=== PATIENT | female | born 1965 | race Caucasian/White ===

== ENCOUNTER → 2016-08-13 | Outpatient (CLI) | payer OTHER ==
--- NOTE | 2016-08-13 17:21 | WOMENS IMAGING REPORT ---
EXAM DESCRIPTION: BILAT SCREENING MAMMO W/CAD COMPLETED DATE/TIME: 08/13/2016 1:57 pm REASON FOR STUDY: BILAT SCREENING MAMMO Z12.31 ENCNTR SCREEN MAMMOGRAM FOR MALIGNANT NEOPLASM OF BR E COMPARISON: None. TECHNIQUE: Standard craniocaudal and mediolateral oblique views of each breast recorded using digita l acquisition. LIMITATIONS: None. FINDINGS: RIGHT BREAST MASSES: On the right breast MLO view, 5 cm of superior to the nipple, a nodule versus superimposed sh adows is present. Further evaluation of this area with a right breast 90 mediolateral view, cone co mpression of the upper half right breast MLO view, cone compression deep central right breast CC view , 90 mediolateral tomosynthesis and CC tomosynthesis are recommended. If this finding persists, the n ultrasound would be required for followup CALCIFICATIONS: No new or suspicious calcifications. ARCHITECTURAL DISTORTION: None. DEVELOPING DENSITY: None. ASYMMETRY: None noted. OTHER: No other significant findings. LEFT BREAST MASSES: No suspicious masses. CALCIFICATIONS: No new or suspicious calcifications. ARCHITECTURAL DISTORTION: None. DEVELOPING DENSITY: None. ASYMMETRY: None noted. OTHER: No other significant findings. Read with the assistance of CAD. .[facility] - R2 Cenova Version 1.3 .[facility] Imaging - R2 Cenova Version 1.3 .[facility] - R2 Cenova Version 2.4 .[facility] [place] - R2 Cenova Version 2.4 .[facility] - R2 Labor Contract Analyst Version 9.2 BREAST DENSITY: b. There are scattered areas of fibroglandular density. BIRAD: 0 Incomplete: Additional Imaging Evaluation and/or prior Mammograms for Comparison. RECOMMENDATION: RECOMMENDED FOLLOW-UP: Additional mammographic views and possible ultrasound right b reast The patient will be contacted for additional imaging. COMMENT: The [employer] (ACR) has developed recommendations for screening MRI of the breasts in certain patient populations, to be used in conjunction with mammography. Breast MRI s urveillance may be appropriate for women with more than 20% lifetime risk of developing breast cancer as determined by genetic testing, significant family history of the disease, or history of mantle r adiation for Hodgkins Disease. ACR Practice Guidelines 2008. TECHNICAL DOCUMENTATION: FINDING NUMBER: (1) ASSESSMENT: (1) JOB ID: [id number] [employer]- All Rights Reserved
== END ==
LOC: WI 13:40
DX: Z12.31 Encounter for screening mammogram for malignant neoplasm of breast (principal)
CPT/HCPCS: 77067; G0202

== ENCOUNTER → 2016-08-13 | Outpatient (CLI) | payer OTHER | LOC: CCC 14:23 | DX: Z12.4 Encounter for screening for malignant neoplasm of cervix (principal) | CPT/HCPCS: 88142 ==

== ENCOUNTER → 2016-08-28 | Outpatient (CLI) | payer OTHER ==
[2016-08-28 09:09] LABS: ABSOLUTE EOSINOPHILS # (AUTO) 0.2 10^3/uL (0.0-0.6); ABSOLUTE LYMPHOCYTES (AUTO) 1.4 10^3/uL (0.5-4.7); ABSOLUTE MONOCYTES (AUTO) 0.6 10^3/uL (0.1-1.4); ABSOLUTE NEUT (AUTO) 3.9 10^3/uL (1.7-8.2); BASOPHILS % (AUTO) 0.8 % (0-2); EOSINOPHILS % (AUTO) 3.4 % (0-6); HEMATOCRIT 35.7 % (36.0-47.0); HEMOGLOBIN 11.8 g/dL (12.0-15.5); HGB HCT DIFFERENCE -0.3; LYMPHOCYTES % (AUTO) 23.1 % (13-45); MEAN CORPUSCULAR HEMOGLOBIN 34.1 pg (27.0-33.4); MEAN CORPUSCULAR VOLUME 103 fl (80-97); MONOCYTES % (AUTO) 9.3 % (3-13); RED BLOOD COUNT 3.46 10^6/uL (3.72-5.28); RED CELL DISTRIBUTION WIDTH 15.4 % (11.5-14.0); SEGMENTED NEUTROPHILS % (AUTO) 63.4 % (42-78); WHITE BLOOD COUNT 6.2 10^3/uL (4.0-10.5)
[2016-08-28 09:29] LABS: ALANINE AMINOTRANSFERASE 36 U/L (9-52); ALBUMIN 3.7 g/dL (3.5-5.0); ALKALINE PHOSPHATASE 98 U/L (38-126); ANION GAP 14 (5-19); ASPARTATE AMINO TRANSFERASE 77 U/L (14-36); BILIRUBIN,TOTAL 0.5 mg/dL (0.2-1.3); BLOOD UREA NITROGEN 8 mg/dL (7-20); CALCIUM 9.1 mg/dL (8.4-10.2); CARBON DIOXIDE 23 mmol/L (22-30); CHLORIDE 106 mmol/L (98-107); CHOLESTEROL 222.02 mg/dL (0-200); CREATININE RESULT 0.65 mg/dL (0.52-1.25); Direct HDL 54 mg/dL (>40); GLUCOSE 70 mg/dL (75-110); POTASSIUM 5.5 mmol/L (3.6-5.0); SODIUM 143.1 mmol/L (137-145); TOTAL PROTEIN 8.1 g/dL (6.3-8.2); TRIGLYCERIDES 121 mg/dL (<150)
[2016-08-28 09:42] LABS: DIRECT LDL 136 mg/dL (<100)
[2016-08-29 07:42] LABS: HEPATITIS C VIRUS AB >11.0 s/co ratio (0.0-0.9)
[2016-08-29 11:52] LABS: HEPATITIS A AB TOTAL Positive (Negative)
== END ==
LOC: CCC 07:36
DX: J44.9 Chronic obstructive pulmonary disease, unspecified (principal); R06.00 Dyspnea, unspecified
CPT/HCPCS: 36415; 71020; 80053; 80061; 83036; 84443; 85025; 86317; 86704; 86708; 86709; 86803; 87340

== ENCOUNTER → 2016-09-02 | Outpatient (CLI) | payer OTHER ==
--- NOTE | 2016-09-02 13:34 | WOMENS IMAGING REPORT ---
EXAM DESCRIPTION: 3D DX MAMMO RIGHT UNILAT COMPLETED DATE/TIME: 09/02/2016 10:02 am REASON FOR STUDY: N63 LUMP R92.2 INCONCLUSIVE MAMMOGRAM COMPARISON: Mammograms 08/13/2016 TECHNIQUE: Right breast 90 mediolateral digital mammogram, right breast craniocaudal and mediolater al oblique digital breast tomosynthesis. LIMITATIONS: None. FINDINGS: BREAST: Right MASSES: No suspicious masses. CALCIFICATIONS: No new or suspicious calcifications. ARCHITECTURAL DISTORTION: None. DEVELOPING DENSITY: None. ASYMMETRY: None noted. OTHER: No other significant findings. Read with the assistance of CAD. .[facility] - R2 Cenova Version 1.3 .[facility] Imaging - R2 Cenova Version 1.3 .[facility] Imaging - R2 Cenova Version 2.4 .[facility] [place] R2 Cenova Version 2.4 .[facility] - R2 Records Specialist Version 9.2 BREAST DENSITY: b. There are scattered areas of fibroglandular density. BIRAD: 1 Negative. RECOMMENDATION: RECOMMENDED FOLLOW UP: Please continue bilateral screening mammography in August 22 SPECIFIC INTERVENTION/IMAGING/CONSULTATION RECOMMENDED:No additional intervention/ imaging/consultati on needed at this time. COMMUNICATION:The negative/benign results were communicated to the patient. COMMENT: PATIENT NOTIFIED BY LETTER. The [employer] (ACR) has developed recommendations for screening MRI of the breast s in certain patient populations, to be used in conjunction with mammography. Breast MRI surveillanc e may be appropriate for women with more than 20% lifetime risk of developing breast cancer as deter mined by genetic testing, significant family history of the disease, or history of mantle radiation f or Hodgkins Disease. ACR Practice Guidelines 2008. DBT Technology DBT is a type of tomographic mammography. With conventional mammography, overlapping breast tissue ma y make lesions difficult to detect, even with good compression. DBT uses an x-ray tube that rotates a round the breast, taking images at different angles. These images are then combined to create thin sl ices of the breast that the radiologist can view as a 3D reconstruction. The Ab[employer] unit can perform full-field digital mammograms (2D imaging); or DBT (3D imaging); or both, in a combination mode that quickly performs both the mammogram and the tomosynthesis scan while the breast is still compressed. PQRS 6045F: Fluoroscopic imaging is not utilized for breast tomosynthesis. TECHNICAL DOCUMENTATION: FINDING NUMBER: (1) ASSESSMENT: (1) JOB ID: [id number] [employer]- All Rights Reserved
== END ==
LOC: WI 09:45
DX: N63 Unspecified lump in breast (principal)
CPT/HCPCS: 77061; G0204

== ENCOUNTER → 2016-09-04 | Outpatient (CLI) | payer OTHER ==
[2016-09-04 11:26] LABS: ANION GAP 14 (5-19); BLOOD UREA NITROGEN 7 mg/dL (7-20); CARBON DIOXIDE 23 mmol/L (22-30); CHLORIDE 101 mmol/L (98-107); CREATININE RESULT 0.57 mg/dL (0.52-1.25); GLUCOSE 75 mg/dL (75-110); SODIUM 138.4 mmol/L (137-145)
[2016-09-04 12:40] LABS: FOLATE > 20.00 ng/mL (>2.76)
[2016-09-07 21:06] LABS: HEPATITIS C GENOTYPE 3 1a (.)
== END ==
LOC: OD 09:52
DX: J44.9 Chronic obstructive pulmonary disease, unspecified (principal); D50.9 Iron deficiency anemia, unspecified
CPT/HCPCS: 36415; 80048; 81270; 82607; 82746

== ENCOUNTER 2016-09-26 13:41 | Emergency (ER) | payer OTHER ==
--- NOTE | 2016-09-26 13:50 | ER Document Report ---
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 Patient reports she feels shaky. Patient states symptoms started several months ago and have worsened over the last few days. Patient states she has been dropping items at home. hx: Hepatitis C, asthma, COPD I have greeted and performed a rapid initial assessment of this patient. A comprehensive ED assessment and evaluation of the patient, analysis of test results and completion of the medical decision making process will be conducted by additional ED providers. TRAVEL OUTSIDE OF THE [place] IN LAST 30 DAYS: No - Related Data Allergies/Adverse Reactions: No Known Allergies Allergy (Verified 09/26/16 13:47) Past Medical History Pulmonary Medical History: Reports: Hx Asthma, Hx Bronchitis, Hx Pneumonia Denies: Hx Tuberculosis Neurological Medical History: Denies: Hx Seizures Psychiatric Medical History: Reports: Hx Bipolar Disorder, Hx Depression, Hx Post Traumatic Stress Disorder Past Surgical History: Reports: Hx Tubal Ligation. Denies: Hx Appendectomy, Hx Bowel Surgery, Hx Section, Hx Cholecystectomy, Hx Coronary Artery Bypass Graft, Hx Gastric Bypass Surgery, Hx Herniorrhaphy, Hx Hysterectomy, Hx Mastectomy, Hx Pacemaker, Hx Tonsillectomy - Immunizations Hx Diphtheria, Pertussis, Tetanus Vaccination: Yes Physical Exam - Vital signs Vitals: Temp Pulse Resp BP Pulse Ox 99.1 F 101 H 19 127/98 H 96 09/26/16 13:46 09/26/16 13:46 09/26/16 13:46 09/26/16 13:46 09/26/16 13:46 - Neurological Silke Coma Scale Eye Opening: Spontaneous Silke Coma Scale Verbal: Oriented [place] Coma Scale Motor: Obeys Commands [place] Coma Scale Total: 15 Course - Vital Signs Vital signs: Temp Pulse Resp BP Pulse Ox 99.1 F 101 H 19 127/98 H 96 09/26/16 13:46 09/26/16 13:46 09/26/16 13:46 09/26/16 13:46 09/26/16 13:46
[2016-09-26 14:24] LABS: ABSOLUTE BASOPHILS # (AUTO) 0.1 10^3/uL (0.0-0.2); ABSOLUTE EOSINOPHILS # (AUTO) 0.2 10^3/uL (0.0-0.6); ABSOLUTE LYMPHOCYTES (AUTO) 1.5 10^3/uL (0.5-4.7); ABSOLUTE MONOCYTES (AUTO) 0.6 10^3/uL (0.1-1.4); ABSOLUTE NEUT (AUTO) 3.1 10^3/uL (1.7-8.2); BASOPHILS % (AUTO) 1.1 % (0-2); EOSINOPHILS % (AUTO) 2.9 % (0-6); HEMATOCRIT 33.2 % (36.0-47.0); HEMOGLOBIN 11.1 g/dL (12.0-15.5); HGB HCT DIFFERENCE 0.1; LYMPHOCYTES % (AUTO) 27.3 % (13-45); MEAN CORPUSCULAR HEMOGLOBIN 35.2 pg (27.0-33.4); MEAN CORPUSCULAR HGB CONC 33.3 g/dL (32.0-36.0); MEAN CORPUSCULAR VOLUME 106 fl (80-97); MONOCYTES % (AUTO) 11.7 % (3-13); RED BLOOD COUNT 3.15 10^6/uL (3.72-5.28); RED CELL DISTRIBUTION WIDTH 14.2 % (11.5-14.0); WHITE BLOOD COUNT 5.5 10^3/uL (4.0-10.5)
[2016-09-26 14:41] LABS: ALANINE AMINOTRANSFERASE 33 U/L (9-52); ALBUMIN 3.5 g/dL (3.5-5.0); ALCOHOL 141 mg/dL (NONE DETECTED); ALKALINE PHOSPHATASE 91 U/L (38-126); ANION GAP 15 (5-19); APPEARANCE,URINE SLIGHTLY-CLOUDY; ASPARTATE AMINO TRANSFERASE 74 U/L (14-36); BILIRUBIN,TOTAL 0.3 mg/dL (0.2-1.3); BILIRUBIN,URINE NEGATIVE (NEGATIVE); BLOOD UREA NITROGEN 10 mg/dL (7-20); CALCIUM 8.4 mg/dL (8.4-10.2); CARBON DIOXIDE 21 mmol/L (22-30); CHLORIDE 105 mmol/L (98-107); CREATININE RESULT 0.73 mg/dL (0.52-1.25); GLUCOSE 84 mg/dL (75-110); GLUCOSE, URINE NEGATIVE (NEGATIVE); MAGNESIUM 2.2 mg/dL (1.6-2.3); POTASSIUM 4.1 mmol/L (3.6-5.0); SODIUM 141.3 mmol/L (137-145); TOTAL PROTEIN 7.3 g/dL (6.3-8.2)
[2016-09-26 14:42] LABS: BACTERIA,URINE TRACE /HPF; KETONES,URINE NEGATIVE (NEGATIVE); LEUKOCYTE ESTERASE,URINE LARGE (NEGATIVE); NITRITE,URINE NEGATIVE (NEGATIVE); PROTEIN,URINE 30 mg/dL (NEGATIVE); RBC,URINE 0-1 /HPF; URINE SPECIFIC GRAVITY 1.021; UROBILINOGEN,URINE NEGATIVE mg/dL (<2.0)
[2016-09-26 14:49] LABS: URINE BARBITURATES SCREEN NEGATIVE; URINE METHADONE SCREEN NEGATIVE; URINE OPIATES LOW NEGATIVE; URINE PHENCYCLIDINE SCREEN NEGATIVE
--- NOTE | 2016-09-26 15:35 | ER Document Report ---
ED General - General Chief Complaint: Tremor Stated Complaint: SHAKY,LEG AND HAND WEAKNESS Time seen by provider: 15:20 Mode of Arrival: Wheelchair Information source: Patient TRAVEL OUTSIDE OF THE [place] IN LAST 30 DAYS: No - HPI Notes: 50-year-old female history of hepatitis C and chronic alcohol use presents with months of increasing weakness and lack of coordination. 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 She denies any head trauma but has felt weak to the point she has fallen without known injury. Denies any headache. No new medications or changes in her medicines. Denies steroid use. She is concerned she may have Parkinson's disease. No focal neurologic symptoms otherwise. Denies fever or dysuria hematuria chest pain or breathing difficulty except for her chronic shortness of breath - Related Data Allergies/Adverse Reactions: No Known Allergies Allergy (Verified 09/26/16 13:47) Past Medical History - General Information source: Patient - Social History Smoking Status: Current Every Day Smoker Chew tobacco use (# tins/day): No Frequency of alcohol use: Heavy Drug Abuse: None Family History: Reviewed & Not Pertinent Patient has suicidal ideation: No Patient has homicidal ideation: No Pulmonary Medical History: Reports: Hx Asthma, Hx Bronchitis, Hx Pneumonia Denies: Hx Tuberculosis Neurological Medical History: Denies: Hx Seizures Renal/ Medical History: Denies: Hx Peritoneal Dialysis Psychiatric Medical History: Reports: Hx Bipolar Disorder, Hx Depression, Hx Post Traumatic Stress Disorder Past Surgical History: Reports: Hx Tubal Ligation. Denies: Hx Appendectomy, Hx Bowel Surgery, Hx Section, Hx Cholecystectomy, Hx Coronary Artery Bypass Graft, Hx Gastric Bypass Surgery, Hx Herniorrhaphy, Hx Hysterectomy, Hx Mastectomy, Hx Pacemaker, Hx Tonsillectomy - Immunizations Hx Diphtheria, Pertussis, Tetanus Vaccination: Yes Hx Pneumococcal Vaccination: 08/03/10 Review of Systems - Review of Systems -: Yes All other systems reviewed and negative Physical Exam - Vital signs Vitals: Temp Pulse Resp BP Pulse Ox 99.1 F 101 H 19 127/98 H 96 09/26/16 13:46 09/26/16 13:46 09/26/16 13:46 09/26/16 13:46 09/26/16 13:46 - Notes Notes: GENERAL: Chronically ill-appearing, in no acute distress. HEAD: Atraumatic, normocephalic. EYES: Pupils equal round and reactive to light, extraocular movements intact, sclera anicteric, conjunctiva are normal. ENT: nares patent, oropharynx clear without exudates. Moist mucous membranes. NECK: Normal range of motion, supple without lymphadenopathy LUNGS: Breath sounds coarse with mild wheezing HEART: Regular rate and rhythm without murmurs ABDOMEN: Soft, normoactive bowel sounds. No guarding, no rebound. No masses appreciated. EXTREMITIES: Normal range of motion, no pitting or edema. No cyanosis. NEUROLOGICAL: Cranial nerves intact. Normal speech, mild generalized weakness. Slight tremor noted. Normal sensory, motor. PSYCH: Normal mood, normal affect. SKIN: Warm, Dry, normal turgor, Course - Re-evaluation Re-evalutation: 09/26/16 16:26 I discussed findings with the patient and discussed with her alcohol abuse and potential nerve damage. She voices understanding but does not plan on quitting at this point. She does have interest in following up with neurology for further evaluation and treatment. She understands warning signs to return to the emergency department for. - Vital Signs Vital signs: Temp Pulse Resp BP Pulse Ox 99.1 F 101 H 19 127/98 H 96 09/26/16 13:46 09/26/16 13:46 09/26/16 13:46 09/26/16 13:46 09/26/16 13:46 - Laboratory Result Diagrams: 09/26/16 14:05 09/26/16 14:05 Laboratory results interpreted by me: 09/26/16 09/26/16 09/26/16 14:05 14:05 14:05 RBC 3.15 L Hgb 11.1 L Hct 33.2 L MCV 106 H MCH 35.2 H RDW 14.2 H Carbon Dioxide 21 L AST 74 H Ammonia < 8.7 L Urine Protein Ur Leukocyte Esterase 09/26/16 14:05 RBC Hgb Hct MCV MCH RDW Carbon Dioxide AST Ammonia Urine Protein 30 H Ur Leukocyte Esterase LARGE H Discharge - Discharge Clinical Impression: Tremors of nervous system, Alcohol abuse Condition: Fair Disposition: HOME, SELF-CARE Additional Instructions: Consider getting help if you feel he needed help to get off the alcohol. Follow -up with neurology as discussed Referrals: [facility] [Primary Care Provider] - Follow up as needed TIERRA PEREZ MD [EMERITUS] - Follow up as needed MANUEL OVIEDO MD [ACTIVE STAFF] - Follow up as needed
[2016-09-26 19:42] VITALS: BP 122/90
== END 2016-09-26 17:00 | disposition home or self-care (01) ==
LOC: ER 13:41
DX: R25.1 Tremor, unspecified (principal); F10.10 Alcohol abuse, uncomplicated; R27.9 Unspecified lack of coordination; R53.1 Weakness; Z91.81 History of falling; J45.909 Unspecified asthma, uncomplicated; R06.02 Shortness of breath; F17.200 Nicotine dependence, unspecified, uncomplicated
CPT/HCPCS: 36415; 70450; 80053; 80307; 81001; 82140; 83735; 85025; 99284

== ENCOUNTER → 2016-11-06 | Outpatient (CLI) | payer OTHER ==
[2016-11-06 09:37] LABS: BILIRUBIN,TOTAL 0.4 mg/dL (0.2-1.3)
== END ==
LOC: CCC 08:45
DX: K76.9 Liver disease, unspecified (principal)
CPT/HCPCS: 36415; 82140; 82247; 82977; 83735; 84450; 84460

== ENCOUNTER 2017-06-06 10:36 | Inpatient (IN) | payer OTHER ==
[2017-06-06] MEDS ORDERED: ONDANSETRON 4 MG TAB.RAPDIS PO ONE (10:49)
--- NOTE | 2017-06-06 10:50 | ER Document Report ---
ED Medical Screen (RME) - General Chief Complaint: Flu Symptoms Stated Complaint: WEAKNESS Time Seen by Provider: 06/06/17 10:48 Mode of Arrival: Ambulatory Information source: Patient Notes: This is a 51-year-old female with a history of COPD and active smoking who presents to the emergency room with generalized weakness, fever, chills, diffuse muscle aches, productive cough, and shortness of breath. TRAVEL OUTSIDE OF THE [place] IN LAST 30 DAYS: No - Related Data Allergies/Adverse Reactions: No Known Allergies Allergy (Verified 06/06/17 10:43) Home Medications: Current Home Medications No Home Medications 06/06/17 [History] Past Medical History Pulmonary Medical History: Reports: Hx Asthma, Hx Bronchitis, Hx Pneumonia Denies: Hx Tuberculosis Neurological Medical History: Denies: Hx Seizures Renal/ Medical History: Denies: Hx Peritoneal Dialysis Psychiatric Medical History: Reports: Hx Bipolar Disorder, Hx Depression, Hx Post Traumatic Stress Disorder Past Surgical History: Reports: Hx Tubal Ligation. Denies: Hx Appendectomy, Hx Bowel Surgery, Hx Section, Hx Cholecystectomy, Hx Coronary Artery Bypass Graft, Hx Gastric Bypass Surgery, Hx Herniorrhaphy, Hx Hysterectomy, Hx Mastectomy, Hx Pacemaker, Hx Tonsillectomy - Immunizations Hx Diphtheria, Pertussis, Tetanus Vaccination: Yes Physical Exam - Vital signs Vitals: Temp Pulse Resp BP Pulse Ox 100.6 F H 124 H 26 H 124/73 93 06/06/17 10:43 06/06/17 10:43 06/06/17 10:43 06/06/17 10:43 06/06/17 10:43 Course - Vital Signs Vital signs: Temp Pulse Resp BP Pulse Ox 100.6 F H 124 H 26 H 124/73 93 06/06/17 10:43 06/06/17 10:43 06/06/17 10:43 06/06/17 10:43 06/06/17 10:43
[2017-06-06] MEDS: NORMAL SALINE 1000 ML 1,000 ML IV PRN ×3 (11:27→13:51)
[2017-06-06 11:45] LABS: HEMATOCRIT 33.4 % (36.0-47.0); HEMOGLOBIN 11.8 g/dL (12.0-15.5); MEAN CORPUSCULAR HEMOGLOBIN 36.5 pg (27.0-33.4); MEAN CORPUSCULAR HGB CONC 35.3 g/dL (32.0-36.0); MEAN CORPUSCULAR VOLUME 104 fl (80-97); RED BLOOD COUNT 3.23 10^6/uL (3.72-5.28); WHITE BLOOD COUNT 25.1 10^3/uL (4.0-10.5)
--- NOTE | 2017-06-06 11:46 | EKG REPORT ---
SEVERITY:- ABNORMAL ECG - SINUS TACHYCARDIA CONSIDER LEFT VENTRICULAR HYPERTROPHY : Confirmed by: Donaldo Graham 06-Jun-2017 11:45:53
[2017-06-06 11:59] LABS: ALANINE AMINOTRANSFERASE 58 U/L (9-52); ALBUMIN 3.2 g/dL (3.5-5.0); ALKALINE PHOSPHATASE 162 U/L (38-126); ANION GAP 17 (5-19); ASPARTATE AMINO TRANSFERASE 117 U/L (14-36); BILIRUBIN,DIRECT 1.5 mg/dL (0.0-0.4); BLOOD UREA NITROGEN 9 mg/dL (7-20); CALCIUM 8.5 mg/dL (8.4-10.2); CARBON DIOXIDE 26 mmol/L (22-30); CHLORIDE 74 mmol/L (98-107); CREATINE KINASE 33 U/L (30-135); CREATININE RESULT 0.44 mg/dL (0.52-1.25); GLUCOSE 106 mg/dL (75-110); TOTAL PROTEIN 6.9 g/dL (6.3-8.2)
[2017-06-06 12:10] LABS: POTASSIUM 2.9 mmol/L (3.6-5.0); SODIUM 117.4 mmol/L (137-145)
[2017-06-06 12:14] LABS: BAND NEUTROPHILS % (MANUAL) 2 % (3-5); BASOPHILS % (MANUAL) 0 % (0-2); EOSINOPHILS % (MANUAL) 0 % (0-6); LYMPHOCYTES % (MANUAL) 2 % (13-45); TOTAL CELLS COUNTED 100
[2017-06-06 12:16] LABS: HYPOCHROMASIA SLIGHT; TOXIC GRANULATION SLIGHT; TOXIC VACUOLATION PRESENT
[2017-06-06 12:17] LABS: CREATINE KINASE MB 0.93 ng/mL (<4.55); TROPONIN I < 0.012 ng/mL
[2017-06-06] MEDS ORDERED: NORMAL SALINE 1000 ML 1,000 ML IV ONE (12:18)
[2017-06-06] MEDS ORDERED: CEFEPIME 1 GM/D5W RTU 1 GM/50 ML RTUPB IV ONE (12:44)
[2017-06-06] MEDS ORDERED: LEVOFLOXACIN 500 MG/D5W RTU 500 MG/100 ML RTUPB IV ONE (12:44)
[2017-06-06] MEDS ORDERED: POTASSIUM CHLORIDE 20 MEQ/15 ML UDCUP PO ONE (12:45)
--- NOTE | 2017-06-06 13:24 | RADIOLOGY REPORT (SQ) ---
EXAM DESCRIPTION: CHEST PA/LAT COMPLETED DATE/TIME: 06/06/2017 12:42 pm REASON FOR STUDY: cough, sob COMPARISON: CT angio chest 04/10/2016 Chest films 04/13/2016, 04/19/2016 EXAM PARAMETERS: NUMBER OF VIEWS: two views TECHNIQUE: Digital Frontal and Lateral radiographic views of the chest acquired. RADIATION DOSE: NA LIMITATIONS: none FINDINGS: LUNGS AND PLEURA: Persistent cavitary infiltrate in the left upper lobe, more prominent th an on previous chest films from April 2016. Atypical pneumonia/tuberculosis should be considered . Patchy airspace disease left retrocardiac region atelectasis versus pneumonia. Right lung grossly clear. No pleural effusions or pneumothorax MEDIASTINUM AND HILAR STRUCTURES: No masses or contour abnormalities. HEART AND VASCULAR STRUCTURES: Heart normal size. No evidence for failure. BONES: No acute findings. HARDWARE: None in the chest. OTHER: No other significant finding. IMPRESSION: Recurrent cavitary infiltrate in the left upper lobe, worrisome for atypical pneumonia o r tuberculosis TECHNICAL DOCUMENTATION: JOB ID: [id number] [employer]- All Rights Reserved
--- NOTE | 2017-06-06 13:55 | ER Document Report ---
ED General - General Chief Complaint: Flu Symptoms Stated Complaint: WEAKNESS Time Seen by Provider: 06/06/17 10:48 Mode of Arrival: Ambulatory TRAVEL OUTSIDE OF THE [place] IN LAST 30 DAYS: No - HPI Patient complains to provider of: Fever cough feeling well Notes: Patient coming in for feeling unwell for the past 3 days cough productive sputum fevers chills weakness. Patient is a smoker. Patient denies any alcohol or drug abuse. Patient denies any recent travel. Denies any recent antibiotics. Patient states history of pneumonia in the past. Upon my evaluation patient does have a mask on. Patient's initial heart rate was elevated in triage has received a bag of fluids already heart rate has improved however still tachycardic. Patient denies vomiting or diarrhea. - Related Data Allergies/Adverse Reactions: No Known Allergies Allergy (Verified 06/06/17 10:43) Home Medications: Current Home Medications No Home Medications 06/06/17 [History] Past Medical History - General Information source: Patient - Social History Smoking Status: Current Every Day Smoker Chew tobacco use (# tins/day): No Frequency of alcohol use: Occasional Drug Abuse: None Family History: Reviewed & Not Pertinent Patient has suicidal ideation: No Patient has homicidal ideation: No Pulmonary Medical History: Reports: Hx Asthma, Hx Bronchitis, Hx Pneumonia Denies: Hx Tuberculosis Neurological Medical History: Denies: Hx Seizures Renal/ Medical History: Denies: Hx Peritoneal Dialysis Psychiatric Medical History: Reports: Hx Bipolar Disorder, Hx Depression, Hx Post Traumatic Stress Disorder Past Surgical History: Reports: Hx Tubal Ligation. Denies: Hx Appendectomy, Hx Bowel Surgery, Hx Section, Hx Cholecystectomy, Hx Coronary Artery Bypass Graft, Hx Gastric Bypass Surgery, Hx Herniorrhaphy, Hx Hysterectomy, Hx Mastectomy, Hx Pacemaker, Hx Tonsillectomy - Immunizations Hx Diphtheria, Pertussis, Tetanus Vaccination: Yes Hx Pneumococcal Vaccination: 08/03/10 Review of Systems - Review of Systems Constitutional: Fever, Weakness EENT: No symptoms reported Cardiovascular: No symptoms reported Respiratory: Short of breath Gastrointestinal: No symptoms reported Genitourinary: No symptoms reported Female Genitourinary: No symptoms reported Musculoskeletal: No symptoms reported Skin: No symptoms reported Hematologic/Lymphatic: No symptoms reported Neurological/Psychological: No symptoms reported -: Yes All other systems reviewed and negative Physical Exam - Vital signs Vitals: Temp Pulse Resp BP Pulse Ox 100.6 F H 124 H 26 H 124/73 93 06/06/17 10:43 06/06/17 10:43 06/06/17 10:43 06/06/17 10:43 06/06/17 10:43 Interpretation: Tachycardic, Tachypneic, Febrile - General General appearance: Appears well, Alert - HEENT Head: Normocephalic, Atraumatic Eyes: Normal Conjunctiva: Normal Cornea: Normal Extraocular movements intact: Yes Eyelashes: Normal Pupils: PERRL - Respiratory Respiratory status: No respiratory distress Chest status: Nontender Breath sounds: Rhonchi, Wheezing Chest palpation: Normal - Cardiovascular Rhythm: Tachycardia Heart sounds: Normal auscultation Murmur: No - Abdominal Inspection: Normal Distension: No distension Bowel sounds: Normal Tenderness: Nontender Organomegaly: No organomegaly - Back Back: Normal, Nontender - Extremities General upper extremity: Normal inspection, Nontender, Normal color, Normal ROM , Normal temperature General lower extremity: Normal inspection, Nontender, Normal color, Normal ROM , Normal temperature, Normal weight bearing. No: Diane's sign - Neurological Neuro grossly intact: Yes Cognition: Normal Orientation: AAOx4 Silke Coma Scale Eye Opening: Spontaneous [place] Coma Scale Verbal: Oriented [place] Coma Scale Motor: Obeys Commands [place] Coma Scale Total: 15 Speech: Normal Motor strength normal: LUE, RUE, LLE, RLE Sensory: Normal - Psychological Associated symptoms: Normal affect, Normal mood - Skin Skin Temperature: Warm Skin Moisture: Dry Skin Color: Normal Course - Re-evaluation Re-evalutation: 06/06/17 15:02 Patient laboratory studies showed significant leukocytosis with lateral abnormalities. Reviewed chest x-ray does show a cavitary lesion discussed with radiology team states that this is a recurring issue reviewed patient's previous visits show multiple visits for pneumonia presenting with a cavitary lesion concerning for tuberculosis with negative acid-fast testing in the past. Antibiotics were ordered for the patient discussed with the hospitalist staff will admit the patient for further evaluation. - Vital Signs Vital signs: Temp Pulse Resp BP Pulse Ox 100.6 F H 124 H 21 H 104/82 100 06/06/17 10:43 06/06/17 10:43 06/06/17 14:31 06/06/17 14:31 06/06/17 14:31 - Laboratory Result Diagrams: 06/06/17 11:25 06/06/17 11:25 Laboratory results interpreted by me: 06/06/17 06/06/17 11:25 11:25 WBC 25.1 H RBC 3.23 L Hgb 11.8 L Hct 33.4 L MCV 104 H MCH 36.5 H Seg Neuts % (Manual) 81 H Band Neutrophils % 2 L Lymphocytes % (Manual) 2 L Monocytes % (Manual) 15 H Abs Neuts (Manual) 20.8 H Abs Monocytes (Manual) 3.8 H Sodium 117.4 L* Potassium 2.9 L* Chloride 74 L Creatinine 0.44 L Total Bilirubin 2.0 H Direct Bilirubin 1.5 H AST 117 H ALT 58 H Alkaline Phosphatase 162 H Albumin 3.2 L Critical Care Note - Critical Care Note Total time excluding time spent on procedures (mins): 35 Comments: Multiple evaluations for patient with concerning pathology. Discharge - Discharge Clinical Impression: Hypokalemia, Hyponatremia, Pulmonary cavitary lesion, Tobacco abuse COPD (chronic obstructive pulmonary disease) Qualifiers: COPD type: unspecified COPD Qualified Code(s): J44.9 - Chronic obstructive pulmonary disease, unspecified Leukocytosis Qualifiers: Leukocytosis type: unspecified Qualified Code(s): D72.829 - Elevated white blood cell count, unspecified Condition: Good Disposition: ADMITTED INPATIENT Admitting Provider: Craigist - [facility] Admitted: [facility]
[2017-06-06] MEDS ORDERED: ACETAMINOPHEN 325 MG TABLET PO PRN ×2 (15:21→17:58)
[2017-06-06] MEDS ORDERED: VANCOMYCIN HCL 0 MG in DEXTROSE 5%-WATER 250 ML IV NR (15:45)
[2017-06-06] MEDS ORDERED: LORAZEPAM 1 MG TABLET PO PRN (16:06)
[2017-06-06] MEDS ORDERED: POTASSI CL 40 MEQ/NS 1L 1,000 ML IV PRN (16:10)
[2017-06-06] MEDS ORDERED: INFLUENZA ADLT QUAD (36MOS+) 2017-18 VAC 0.5 ML SYR IM PRN (16:29)
[2017-06-06 16:36] LABS: APPEARANCE,URINE CLOUDY; BILIRUBIN,URINE MODERATE (NEGATIVE); GLUCOSE, URINE NEGATIVE (NEGATIVE); KETONES,URINE 20 mg/dL (NEGATIVE); LEUKOCYTE ESTERASE,URINE NEGATIVE (NEGATIVE); NITRITE,URINE NEGATIVE (NEGATIVE); PROTEIN,URINE 100 mg/dL (NEGATIVE); URINE SPECIFIC GRAVITY 1.019
[2017-06-06] MEDS ORDERED: CLONIDINE 0.1 MG/24 HR PATCH.TDWK TD ONE (17:00)
[2017-06-06] MEDS ORDERED: VANCOMYCIN HCL INJ 1000 MG VIAL IV PRN (17:23)
[2017-06-06 17:31] LABS: BLOOD UREA NITROGEN 8 mg/dL (7-20); CALCIUM 7.7 mg/dL (8.4-10.2); CARBON DIOXIDE 26 mmol/L (22-30); CHLORIDE 82 mmol/L (98-107); CREATININE RESULT 0.36 mg/dL (0.52-1.25); GLUCOSE 102 mg/dL (75-110); POTASSIUM 3.3 mmol/L (3.6-5.0)
[2017-06-06 17:33] LABS: ANION GAP 11 (5-19)
[2017-06-06] MEDS: DIAZEPAM 5 MG TABLET PO SCH (17:55)
[2017-06-06] MEDS: BENZOCAINE/MENTHOL SORE THROAT LOZENGE BUCCAL PRN (17:55)
[2017-06-06] MEDS: CEFEPIME 2 GM/D5W RTU 2 GM/50 ML RTUPB IV SCH (17:56)
[2017-06-06] MEDS ORDERED: IBUPROFEN 600 MG TABLET PO PRN (17:59)
[2017-06-06] MEDS ORDERED: NICOTINE 21 MG/24 HR PATCH.TD24 TD ONE (18:15)
[2017-06-06] MEDS ORDERED: VANCOMYCIN HCL INJ 1000 MG VIAL ONE (19:59)
[2017-06-06] MEDS ORDERED: VANCOMYCIN HCL 1,000 MG in DEXTROSE 5%-WATER 250 ML IV ONE (20:00)
[2017-06-06 20:40] LABS: ANION GAP 10 (5-19); BLOOD UREA NITROGEN 9 mg/dL (7-20); CALCIUM 7.7 mg/dL (8.4-10.2); CARBON DIOXIDE 27 mmol/L (22-30); CHLORIDE 81 mmol/L (98-107); CREATININE RESULT 0.41 mg/dL (0.52-1.25); GLUCOSE 132 mg/dL (75-110); POTASSIUM 3.2 mmol/L (3.6-5.0)
[2017-06-06 20:46] LABS: SODIUM 117.5 mmol/L (137-145)
[2017-06-07] MEDS: DIAZEPAM 5 MG TABLET PO SCH ×5 (00:58→23:48)
[2017-06-07] MEDS ORDERED: POTASSIUM CHLORIDE 20 MEQ/50 ML RTU IV SCH (01:15)
[2017-06-07 01:25] LABS: BLOOD UREA NITROGEN 9 mg/dL (7-20); CALCIUM 7.9 mg/dL (8.4-10.2); CARBON DIOXIDE 24 mmol/L (22-30); CHLORIDE 85 mmol/L (98-107); GLUCOSE 123 mg/dL (75-110)
[2017-06-07 01:27] LABS: ANION GAP 10 (5-19)
[2017-06-07 01:44] LABS: SODIUM 119.4 mmol/L (137-145)
[2017-06-07 01:46] LABS: POTASSIUM 3.1 mmol/L (3.6-5.0)
[2017-06-07] MEDS ORDERED: POTASSIUM CHLORIDE 10 MEQ TABLET.SA PO ONE (02:00)
[2017-06-07] MEDS: LANSOPRAZOLE 30 MG TAB.RAP.DR PO SCH (05:25)
[2017-06-07] MEDS: CEFEPIME 2 GM/D5W RTU 2 GM/50 ML RTUPB IV SCH ×2 (06:33→17:23)
[2017-06-07 07:38] LABS: ALANINE AMINOTRANSFERASE 80 U/L (9-52); ALBUMIN 2.6 g/dL (3.5-5.0); ALKALINE PHOSPHATASE 185 U/L (38-126); ANION GAP 9 (5-19); ASPARTATE AMINO TRANSFERASE 175 U/L (14-36); BILIRUBIN,DIRECT 1.9 mg/dL (0.0-0.4); BILIRUBIN,TOTAL 2.2 mg/dL (0.2-1.3); BLOOD UREA NITROGEN 7 mg/dL (7-20); CARBON DIOXIDE 25 mmol/L (22-30); CHLORIDE 90 mmol/L (98-107); CREATININE RESULT 0.38 mg/dL (0.52-1.25); GLUCOSE 101 mg/dL (75-110); HEMATOCRIT 31.5 % (36.0-47.0); HGB HCT DIFFERENCE 1.5; MEAN CORPUSCULAR HEMOGLOBIN 36.6 pg (27.0-33.4); MEAN CORPUSCULAR HGB CONC 34.8 g/dL (32.0-36.0); MEAN CORPUSCULAR VOLUME 105 fl (80-97); RED BLOOD COUNT 2.99 10^6/uL (3.72-5.28); SODIUM 124.3 mmol/L (137-145); WHITE BLOOD COUNT 21.3 10^3/uL (4.0-10.5)
[2017-06-07 08:19] LABS: ADD HIVPANEL? NO; BASOPHILS % (MANUAL) 0 % (0-2); EOSINOPHILS % (MANUAL) 0 % (0-6); HIV (1 AND 2) ANTIBODY NEGATIVE (NEGATIVE); LYMPHOCYTES % (MANUAL) 4 % (13-45); TOTAL CELLS COUNTED 100
[2017-06-07 08:24] LABS: ANISOCYTOSIS SLIGHT; POLYCHROMASIA SLIGHT; TOXIC GRANULATION 1+; TOXIC VACUOLATION PRESENT
[2017-06-07 08:30] LABS: POTASSIUM 4.5 mmol/L (3.6-5.0)
[2017-06-07 09:09] LABS: STREP. GROUP B AG NEGATIVE (NEGATIVE)
[2017-06-07] MEDS: LEVOFLOXACIN 750 MG/D5W RTU 750 MG/150 ML RTUPB IV SCH (09:54)
[2017-06-07] MEDS: NICOTINE 21 MG/24 HR PATCH.TD24 TD SCH (09:54)
[2017-06-07] MEDS: MAGNESIUM OXIDE 400 MG TABLET PO SCH (09:54)
--- NOTE | 2017-06-07 10:15 | RADIOLOGY REPORT (SQ) ---
EXAM DESCRIPTION: CT CHEST WITHOUT COMPLETED DATE/TIME: 06/07/2017 9:43 am REASON FOR STUDY: cavitary lesion COMPARISON: CT chest 04/10/2016, 04/02/2016, 03/26/2016, 06/07/2011 TECHNIQUE: CT scan performed of the chest without intravenous contrast. Images reviewed with lung, soft tissue and bone windows. Reconstructed coronal and sagittal MPR images reviewed. All images st ored on PACS. All CT scanners at this facility use dose modulation, iterative reconstruction, and/or weight based d osing when appropriate to reduce radiation dose to as low as reasonably achievable (ALARA). [facility]: Dose Right [facility]: CareDose [facility]: Dose Right [facility]: Teradose 4D [facility]: Smart Technologies RADIATION DOSE: Up-to-date CT equipment and radiation dose reduction techniques were employed. CTDIv ol: 4.9 mGy. DLP: 208 mGy-cm. mGy. LIMITATIONS: No technical limitations. FINDINGS: LUNGS AND PLEURA: Over the series of exams, patient has had multiple waxing and waning cav itary lesions with surrounding airspace disease. On the current exam, there is a 7 x 6 cm thick walled cavity in the left upper lobe with surrounding airspace disease new compared to previous exams. Findings are worrisome for atypical pneumonia, tube rculosis, KAYLEE, or fungal disease. Waxing and waning cavitary masses related to Todd's or rheumato id are also possible. Dense new consolidation is present in the medial left lung base. Multiple other smaller foci of ill- defined alveolar nodules bilaterally. Old healed thin walled cavitary lesions bilaterally. No pneumothorax. No pleural effusions. HILAR AND MEDIASTINAL STRUCTURES: No identified masses or abnormal nodes. No obvious aneurysm. HEART AND VASCULAR STRUCTURES: No aneurysm. No pericardial effusion. Moderate coronary artery calci fication UPPER ABDOMEN: No significant findings. Limited exam. THYROID AND OTHER SOFT TISSUES: No masses. No adenopathy. BONES: No significant finding. HARDWARE: None in the chest. OTHER: No other significant findings. IMPRESSION: Multifocal cavitary lesion with surrounding airspace disease. Findings are certainly wo rrisome for recurrent aspiration or atypical pneumonia, or tuberculosis TECHNICAL DOCUMENTATION: JOB ID: [id number] Quality ID # [id number]: Final reports with documentation of one or more dose reduction techniques (e.g., Au tomated exposure control, adjustment of the mA and/or kV according to patient size, use of iterative reconstruction technique) 2010 [employer]- All Rights Reserved
[2017-06-07] MEDS ORDERED: VANCOMYCIN HCL 1,000 MG in DEXTROSE 5%-WATER 250 ML IV ONE (11:00)
[2017-06-07] MEDS ORDERED: IBUPROFEN 600 MG TABLET PO PRN (11:58)
[2017-06-07] MEDS ORDERED: LORAZEPAM 1 MG TABLET PO PRN (11:59)
--- NOTE | 2017-06-07 14:45 | PDOC H&P ---
History of Present Illness Admission Date/PCP: 06/06/17 15:21 Patient complains of: Patient not feeling well History of Present Illness: MARIA DE JESUS CAMPOS is a 51 year old female is with fever and cough. Patient states she has not been feeling well for the last several weeks. Patient says her cough is productive with yellow sputum. She states that she has been hot and cold. She states she has been called to the point of shaking. Patient states she is lost her appetite. Patient states she has had no energy to do any work. Patient states she has had several episodes of vomiting. Patient states last time she was ill one year ago she has not been sick again. Patient denies any sick contacts. ED patient was noted to be febrile hyponatremic hypokalemic with hypomagnesemia. Patient chest x-ray shows cavitary lesion. This was called to admit patient for possible pneumonia and electrolyte derangements. Past Medical History Cardiac Medical History: Reports: None Pulmonary Medical History: Reports: Asthma, Bronchitis, Pneumonia Denies: Tuberculosis EENT Medical History: Reports: None Neurological Medical History: Denies: Seizures Endocrine Medical History: Reports: None Renal/ Medical History: Reports: None Malignancy Medical History: Reports: None GI Medical History: Reports: None Musculoskeltal Medical History: Reports: None Psychiatric Medical History: Reports: Bipolar Disorder, Depression, Post Traumatic Stress Disorder Traumatic Medical History: Reports: None Hematology: Reports: Anemia Infectious Medical History: Reports: Hepatitis C Past Surgical History Past Surgical History: Reports: Tubal Ligation Denies: Appendectomy, Section, Cholecystectomy, Coronary Artery Bypass Graft, Gastric Bypass Surgery, Herniorrhaphy, Hysterectomy, Mastectomy, Pacemaker, Tonsillectomy Social History Information Source: Patient Smoking Status: Current Every Day Smoker Cigarettes Packs Per Day: 1 Number of Years Smokin Last Time Smoked: 2 days ago Frequency of Alcohol Use: Heavy Hx Recreational Drug Use: No Drugs: Marijuana Hx Prescription Drug Abuse: No - Advance Directive Resuscitation Status: Full Code Family History Family History: COPD Parental Family History Reviewed: No Children Family History Reviewed: No Sibling(s) Family History Reviewed.: No Medication/Allergy Home Medications: No Home Medications 06/06/17 Allergies/Adverse Reactions: No Known Allergies Allergy (Verified 06/06/17 10:43) Review of Systems Constitutional: PRESENT: fatigue, fever(s) Eyes: ABSENT: visual disturbances Ears: ABSENT: hearing changes Nose, Mouth, and Throat: PRESENT: sore throat Cardiovascular: ABSENT: chest pain, dyspnea on exertion, edema, orthropnea, palpitations Respiratory: PRESENT: cough, sputum Gastrointestinal: PRESENT: vomiting Genitourinary: ABSENT: dysuria, hematuria Musculoskeletal: PRESENT: muscle weakness Integumentary: ABSENT: rash, wounds Neurological: ABSENT: abnormal gait, abnormal speech, confusion, dizziness, focal weakness, syncope Psychiatric: PRESENT: anxiety Endocrine: ABSENT: cold intolerance, heat intolerance, polydipsia, polyuria Hematologic/Lymphatic: ABSENT: easy bleeding, easy bruising Physical Exam Vital Signs: Temp Pulse Resp BP Pulse Ox 97.8 F 89 20 98/57 L 98 06/07/17 03:20 06/07/17 03:20 06/07/17 03:20 06/07/17 03:20 06/07/17 03:20 Intake & Output 06/05/17 06/06/17 06/07/17 06:59 06:59 05:59 Intake Total 440 Balance 440 General appearance: PRESENT: no acute distress, disheveled Head exam: PRESENT: normocephalic Eye exam: PRESENT: EOMI. ABSENT: scleral icterus Ear exam: PRESENT: normal external ear exam Mouth exam: PRESENT: dry mucosa, neck supple Teeth exam: PRESENT: poor dentation Neck exam: ABSENT: carotid bruit, JVD, lymphadenopathy, thyromegaly Respiratory exam: PRESENT: clear to auscultation billy. ABSENT: rales, rhonchi, wheezes Cardiovascular exam: PRESENT: RRR. ABSENT: diastolic murmur, rubs, systolic murmur GI/Abdominal exam: PRESENT: normal bowel sounds, soft. ABSENT: distended, guarding, mass, organolmegaly, rebound, tenderness Rectal exam: PRESENT: deferred Extremities exam: PRESENT: full ROM. ABSENT: calf tenderness, clubbing, pedal edema Neurological exam: PRESENT: alert, awake, oriented to person, oriented to place , oriented to time, oriented to situation, CN II-XII grossly intact. ABSENT: motor sensory deficit Psychiatric exam: PRESENT: agitated. ABSENT: homicidal ideation, suicidal ideation Skin exam: PRESENT: dry, intact, warm. ABSENT: cyanosis, rash Results Laboratory Results: 06/07/17 00:53 06/06/17 06/06/17 06/06/17 16:40 16:40 20:02 Sodium 119.0 L* 117.5 L* Potassium 3.3 L 3.2 L Chloride 82 L 81 L Carbon Dioxide 26 27 Anion Gap 11 10 BUN 8 9 Creatinine 0.36 L 0.41 L Est GFR ( Amer) > 60 > 60 Est GFR (Non-Af Amer) > 60 > 60 Glucose 102 132 H Calcium 7.7 L 7.7 L Magnesium 1.7 06/07/17 06/07/17 00:53 00:53 Sodium 119.4 L* Potassium 3.1 L Chloride 85 L Carbon Dioxide 24 Anion Gap 10 BUN 9 Creatinine 0.40 L Est GFR ( Amer) > 60 Est GFR (Non-Af Amer) > 60 Glucose 123 H Calcium 7.9 L Magnesium 1.7 Impressions: Chest X-Ray 06/06/17 10:49 IMPRESSION: Recurrent cavitary infiltrate in the left upper lobe, worrisome for atypical pneumonia or tuberculosis Assessment & Plan - Diagnosis (1) Sepsis Is this a current diagnosis for this admission?: Yes Plan: Patient with fever, leukocytosis, tachycardia most like aspiration pneumonia. Patient on vancomycin, cefepime and levaquin. Will follow blood culture. (2) Pulmonary cavitary lesion Is this a current diagnosis for this admission?: Yes Plan: Patient was found to have this cavitary lesion in the past. Patient was actually sent to [facility] for further evaluation. She is now here again. Patient started on broad-spectrum antibiotics with cefepime, Levaquin, and vancomycin. Blood cultures sent. Sputum culture ordered. TB was ruled out earlier in the year. Will test for strep pneumonia, Legionella, mycoplasma and aspergillus. Influenza negative. Will repeat CT scan in the a.m. to make sure there are no further abnormalities i.e. empyema. Concerned that this may be the result of recurrent aspiration as patient states that she has been vomiting or an adequate treatment of previous infection. (3) Alcohol abuse Is this a current diagnosis for this admission?: Yes Plan: Chronic alcohol abuse. Patient concerned about withdrawal. Will start the patient on scheduled valium and PRN ativan. Will also hydrate patient. (4) Hypokalemia Is this a current diagnosis for this admission?: Yes Plan: Possibly secondary to vomiting. Will add potassium to IV fluids. Will monitor. (5) Hyponatremia Is this a current diagnosis for this admission?: Yes Plan: Patient is possible SIADH from her current infection or secondary to alcohol abuse. Patient is asymptomatic therefore, she will be treated with normal saline and sodium monitored and allowed to trend up gradually. (6) Tobacco abuse Is this a current diagnosis for this admission?: Yes Plan: Patient requested nicotine patch. Patient counseled on smoking cessation. (7) Nausea and vomiting Is this a current diagnosis for this admission?: Yes Plan: Now resolved. Will continue with PRN atiemetics. - Time Time Spent: 30 to 50 Minutes Smoking Cessation Education: 3 to 10 minutes Medications reviewed and adjusted accordingly: Yes - None given patient states she is not on any Anticipated discharge: Home Within: Other - Inpatient Certification Medical Necessity: Significant Comorbidiites Make Outpatient Treatment Too Risky , Need Close Monitoring Due to Risk of Patient Decompensation
--- NOTE | 2017-06-07 16:45 | PDOC PROGRESS REPORT ---
Subjective Progress Note for:: 06/07/17 Subjective:: Patient is a 51-year-old female who presents with a complaint of not feeling well for 2 weeks. Patient has a persisting cavitary lesion on chest x- ray with worsening findings on CT scans. Patient continues to have fevers. Patient states that she feels anxious and is hot and cold and is asking for more Ativan. Patient states she was able to eat some breakfast this morning. Physical Exam Vital Signs: Temp Pulse Resp BP Pulse Ox 100.6 F H 121 H 18 108/69 100 06/07/17 11:55 06/07/17 11:55 06/07/17 11:55 06/07/17 11:55 06/07/17 11:55 Intake & Output 06/06/17 06/07/17 06/08/17 07:59 06:59 06:59 Intake Total Output Total Balance Weight General appearance: PRESENT: disheveled, mild distress Head exam: PRESENT: normocephalic Eye exam: PRESENT: EOMI. ABSENT: scleral icterus Ear exam: PRESENT: normal external ear exam Mouth exam: PRESENT: moist Teeth exam: PRESENT: poor dentation Throat exam: ABSENT: tonsillar erythema, tonsillar exudate Neck exam: ABSENT: carotid bruit, JVD, lymphadenopathy, thyromegaly Respiratory exam: PRESENT: clear to auscultation billy. ABSENT: rales, rhonchi, wheezes Cardiovascular exam: PRESENT: RRR. ABSENT: diastolic murmur, rubs, systolic murmur GI/Abdominal exam: PRESENT: normal bowel sounds, soft. ABSENT: distended, guarding, mass, organolmegaly, rebound, tenderness Rectal exam: PRESENT: deferred Extremities exam: PRESENT: full ROM. ABSENT: calf tenderness, clubbing, pedal edema Neurological exam: PRESENT: alert, awake, oriented to person, oriented to place , oriented to time, oriented to situation, CN II-XII grossly intact. ABSENT: motor sensory deficit Psychiatric exam: PRESENT: anxious, flat affect. ABSENT: homicidal ideation, suicidal ideation Skin exam: PRESENT: dry, intact, warm. ABSENT: cyanosis, rash Results Laboratory Results: 06/07/17 07:14 06/07/17 07:14 06/06/17 06/06/17 06/06/17 16:40 16:40 20:02 WBC RBC Hgb Hct MCV MCH MCHC RDW Plt Count Seg Neutrophils % Lymphocytes % Monocytes % Eosinophils % Basophils % Absolute Neutrophils Absolute Lymphocytes Absolute Monocytes Absolute Eosinophils Absolute Basophils Sodium 119.0 L* 117.5 L* Potassium 3.3 L 3.2 L Chloride 82 L 81 L Carbon Dioxide 26 27 Anion Gap 11 10 BUN 8 9 Creatinine 0.36 L 0.41 L Est GFR ( Amer) > 60 > 60 Est GFR (Non-Af Amer) > 60 > 60 Glucose 102 132 H Calcium 7.7 L 7.7 L Magnesium 1.7 Total Bilirubin AST ALT Alkaline Phosphatase Total Protein Albumin 06/07/17 06/07/17 06/07/17 00:53 00:53 07:14 WBC RBC Hgb Hct MCV MCH MCHC RDW Plt Count Seg Neutrophils % Lymphocytes % Monocytes % Eosinophils % Basophils % Absolute Neutrophils Absolute Lymphocytes Absolute Monocytes Absolute Eosinophils Absolute Basophils Sodium 119.4 L* 124.3 L Potassium 3.1 L 4.5 D Chloride 85 L 90 L Carbon Dioxide 24 25 Anion Gap 10 9 BUN 9 7 Creatinine 0.40 L 0.38 L Est GFR ( Amer) > 60 > 60 Est GFR (Non-Af Amer) > 60 > 60 Glucose 123 H 101 Calcium 7.9 L 8.0 L Magnesium 1.7 Total Bilirubin 2.2 H AST 175 H ALT 80 H Alkaline Phosphatase 185 H Total Protein 6.0 L Albumin 2.6 L 06/07/17 07:14 WBC 21.3 H RBC 2.99 L Hgb 11.0 L Hct 31.5 L MCV 105 H MCH 36.6 H MCHC 34.8 RDW 14.0 Plt Count 300 Seg Neutrophils % Not Reportable Lymphocytes % Not Reportable Monocytes % Not Reportable Eosinophils % Not Reportable Basophils % Not Reportable Absolute Neutrophils Not Reportable Absolute Lymphocytes Not Reportable Absolute Monocytes Not Reportable Absolute Eosinophils Not Reportable Absolute Basophils Not Reportable Sodium Potassium Chloride Carbon Dioxide Anion Gap BUN Creatinine Est GFR ( Amer) Est GFR (Non-Af Amer) Glucose Calcium Magnesium Total Bilirubin AST ALT Alkaline Phosphatase Total Protein Albumin Impressions: Chest X-Ray 06/06/17 10:49 IMPRESSION: Recurrent cavitary infiltrate in the left upper lobe, worrisome for atypical pneumonia or tuberculosis Chest CT 06/07/17 10:00 IMPRESSION: Multifocal cavitary lesion with surrounding airspace disease. Findings are certainly worrisome for recurrent aspiration or atypical pneumonia , or tuberculosis Assessment & Plan - Diagnosis (1) Sepsis Is this a current diagnosis for this admission?: Yes Plan: Patient with fever, hypotension, leukocytosis, tachycardia most like aspiration pneumonia. Patient on vancomycin, cefepime and levaquin. Continue aggressive fluid resuscitation. Culture no growth to date. Urine culture no growth to date. Sputum culture growing gram-positive cocci in clusters. This is concerning for MRSA pneumonia. Continue broad-spectrum antibiotics. Leukocytosis minimally improved, tachycardia improving. Patient still with fevers. (2) Pulmonary cavitary lesion Is this a current diagnosis for this admission?: Yes Plan: Patient was found to have this cavitary lesion in the past. Patient was actually sent to [facility] for further evaluation. She is now here again similar presentation. Patient started on broad-spectrum antibiotics with cefepime, Levaquin, and vancomycin. Blood cultures sent. Sputum culture ordered. TB was ruled out earlier in the year. Strep pneumonia, Legionella, mycoplasma and aspergillus pending. Influenza negative. Concerned that this may be the result of recurrent aspiration as patient states that she has been vomiting or an adequate treatment of previous infection. Will do a telephone consultation with [facility] infectious disease, to ensure that patient is being managed appropriately. (3) Alcohol abuse Is this a current diagnosis for this admission?: Yes Plan: Chronic alcohol abuse. Patient concerned about withdrawal. Continue scheduled Valium and PRN ativan. Patient also has a clonidine patch. May also start gabapentin. (4) Hypokalemia Is this a current diagnosis for this admission?: Yes Plan: Due to poor dietary intake. Resolved. (5) Hyponatremia Is this a current diagnosis for this admission?: Yes Plan: Patient is possible SIADH from her current infection or secondary to alcohol abuse. Patient is asymptomatic therefore, she will be treated with normal saline. Patient's sodium is improving an is now in the 120s. (6) Tobacco abuse Is this a current diagnosis for this admission?: Yes Plan: Patient requested nicotine patch. Patient counseled on smoking cessation. (7) Nausea and vomiting Is this a current diagnosis for this admission?: Yes Plan: Now resolved. Will continue with PRN atiemetics. (8) Macrocytic anemia Is this a current diagnosis for this admission?: Yes Plan: Possibly due to chronic alcohol abuse. B12 and folate. Will not check thyroid studies at this time as they are more likely to be abnormal due to acute illness. Will start patient on thiamine folic acid and B12 replacement. - Time Time Spent with patient: 15-24 minutes Smoking Cessation Education: 3 to 10 minutes Medications reviewed and adjusted accordingly: Yes Anticipated discharge: Home Within: Other - Inpatient Certification Medical Necessity: Significant Comorbidiites Make Outpatient Treatment Too Risky , Need Close Monitoring Due to Risk of Patient Decompensation, Need for IV Antibiotics
[2017-06-07] MEDS: VANCOMYCIN HCL 1,000 MG in DEXTROSE 5%-WATER 250 ML IV SCH (18:32)
[2017-06-07] MEDS: BENZOCAINE/MENTHOL SORE THROAT LOZENGE BUCCAL PRN (18:32)
[2017-06-07] MEDS: LORAZEPAM 1 MG TABLET PO PRN (20:24)
[2017-06-07] MEDS: NORMAL SALINE 1000 ML 1,000 ML IV PRN (22:38)
[2017-06-07] MEDS: IBUPROFEN 800 MG TABLET PO PRN (23:48)
[2017-06-08] MEDS: VANCOMYCIN HCL 1,000 MG in DEXTROSE 5%-WATER 250 ML IV SCH ×3 (01:24→17:33)
[2017-06-08] MEDS: CEFEPIME 2 GM/D5W RTU 2 GM/50 ML RTUPB IV SCH ×2 (06:23→17:32)
[2017-06-08] MEDS: DIAZEPAM 5 MG TABLET PO SCH ×4 (06:23→23:11)
[2017-06-08] MEDS: LANSOPRAZOLE 30 MG TAB.RAP.DR PO SCH (06:23)
[2017-06-08 06:28] LABS: ANION GAP 9 (5-19); BLOOD UREA NITROGEN 3 mg/dL (7-20); CALCIUM 7.6 mg/dL (8.4-10.2); CARBON DIOXIDE 23 mmol/L (22-30); CHLORIDE 92 mmol/L (98-107); CREATININE RESULT 0.36 mg/dL (0.52-1.25); GLUCOSE 94 mg/dL (75-110); SODIUM 124.1 mmol/L (137-145)
[2017-06-08 06:37] LABS: ABSOLUTE EOSINOPHILS # (AUTO) 0.1 10^3/uL (0.0-0.6); ABSOLUTE LYMPHOCYTES (AUTO) 0.9 10^3/uL (0.5-4.7); ABSOLUTE MONOCYTES (AUTO) 3.2 10^3/uL (0.1-1.4); BASOPHILS % (AUTO) 0.3 % (0-2); EOSINOPHILS % (AUTO) 0.5 % (0-6); LYMPHOCYTES % (AUTO) 5.5 % (13-45); MEAN CORPUSCULAR HEMOGLOBIN 37.3 pg (27.0-33.4); MEAN CORPUSCULAR HGB CONC 35.5 g/dL (32.0-36.0); MEAN CORPUSCULAR VOLUME 105 fl (80-97); MONOCYTES % (AUTO) 19.6 % (3-13); RED BLOOD COUNT 2.67 10^6/uL (3.72-5.28); RED CELL DISTRIBUTION WIDTH 13.8 % (11.5-14.0); SEGMENTED NEUTROPHILS % (AUTO) 74.1 % (42-78); WHITE BLOOD COUNT 16.2 10^3/uL (4.0-10.5)
[2017-06-08 07:33] LABS: FOLATE 7.28 ng/mL (>2.76)
[2017-06-08 07:44] LABS: POTASSIUM 3.4 mmol/L (3.6-5.0)
[2017-06-08] MEDS: THIAMINE HCL 100 MG TABLET PO SCH (10:00)
[2017-06-08] MEDS: NORMAL SALINE 1000 ML 1,000 ML IV PRN ×2 (10:00→23:14)
[2017-06-08] MEDS: FOLIC ACID 1 MG TABLET PO SCH (10:01)
[2017-06-08] MEDS: CYANOCOBALAMIN (VITAMIN B-12) 1,000 MCG TABLET PO SCH (10:01)
[2017-06-08] MEDS: NICOTINE 21 MG/24 HR PATCH.TD24 TD SCH (10:01)
[2017-06-08] MEDS: LEVOFLOXACIN 750 MG/D5W RTU 750 MG/150 ML RTUPB IV SCH (10:02)
[2017-06-08] MEDS: MAGNESIUM OXIDE 400 MG TABLET PO SCH (10:03)
[2017-06-08] MEDS: IBUPROFEN 800 MG TABLET PO PRN (11:46)
[2017-06-08] MEDS ORDERED: POTASSIUM CHLORIDE 10 MEQ TABLET.SA PO ONE (14:00)
[2017-06-08] MEDS: LORAZEPAM 1 MG TABLET PO PRN (20:02)
[2017-06-08] MEDS: BENZOCAINE/MENTHOL SORE THROAT LOZENGE BUCCAL PRN (20:11)
[2017-06-09] MEDS: VANCOMYCIN HCL 1,000 MG in DEXTROSE 5%-WATER 250 ML IV SCH ×2 (01:31→11:07)
[2017-06-09] MEDS ORDERED: LEVALBUTEROL HCL NEB 1.25 MG/3 ML AMPUL NEB PRN (02:25)
[2017-06-09] MEDS ORDERED: DILTIAZEM HCL 30 MG TABLET PO ONE (02:45)
[2017-06-09] MEDS: LORAZEPAM 1 MG TABLET PO PRN (03:07)
[2017-06-09 04:24] LABS: ANION GAP 8 (5-19); BLOOD UREA NITROGEN 2 mg/dL (7-20); CALCIUM 7.6 mg/dL (8.4-10.2); CARBON DIOXIDE 28 mmol/L (22-30); CHLORIDE 92 mmol/L (98-107); CREATININE RESULT 0.36 mg/dL (0.52-1.25); GLUCOSE 128 mg/dL (75-110); HEMATOCRIT 27.6 % (36.0-47.0); HEMOGLOBIN 9.5 g/dL (12.0-15.5); HGB HCT DIFFERENCE 0.9; MEAN CORPUSCULAR HGB CONC 34.5 g/dL (32.0-36.0); MEAN CORPUSCULAR VOLUME 104 fl (80-97); RED BLOOD COUNT 2.64 10^6/uL (3.72-5.28); SODIUM 128.3 mmol/L (137-145); WHITE BLOOD COUNT 13.2 10^3/uL (4.0-10.5)
[2017-06-09 04:31] LABS: POTASSIUM 2.8 mmol/L (3.6-5.0)
[2017-06-09 04:46] LABS: BAND NEUTROPHILS % (MANUAL) 3 % (3-5); BASOPHILS % (MANUAL) 0 % (0-2); EOSINOPHILS % (MANUAL) 0 % (0-6); LYMPHOCYTES % (MANUAL) 12 % (13-45); TOTAL CELLS COUNTED 100
[2017-06-09 04:49] LABS: ANISOCYTOSIS SLIGHT; TOXIC GRANULATION SLIGHT; TOXIC VACUOLATION PRESENT
[2017-06-09] MEDS: MAGNESIUM SULFATE/D5W 1 GM/100 ML RTUPB IV SCH ×3 (05:19→08:46)
[2017-06-09] MEDS ORDERED: POTASSIUM CHLORIDE 10 MEQ TABLET.SA PO ONE ×2 (06:00→17:00)
[2017-06-09] MEDS: CEFEPIME 2 GM/D5W RTU 2 GM/50 ML RTUPB IV SCH (06:33)
[2017-06-09] MEDS: DILTIAZEM HCL 30 MG TABLET PO SCH ×2 (06:34→12:43)
[2017-06-09] MEDS: LANSOPRAZOLE 30 MG TAB.RAP.DR PO SCH (06:34)
[2017-06-09] MEDS: DIAZEPAM 5 MG TABLET PO SCH ×2 (06:34→12:43)
[2017-06-09] MEDS ORDERED: POTASSIUM CHLORIDE 10 MEQ TABLET.SA PO SCH (08:00)
[2017-06-09] MEDS: IPRATROPIUM/ALBUTEROL 0.5-2.5 MG/3 ML AMPUL NEB SCH ×3 (08:18→15:51)
[2017-06-09] MEDS: FOLIC ACID 1 MG TABLET PO SCH (09:47)
[2017-06-09] MEDS: THIAMINE HCL 100 MG TABLET PO SCH (09:47)
[2017-06-09] MEDS: MAGNESIUM OXIDE 400 MG TABLET PO SCH (09:48)
[2017-06-09] MEDS: CYANOCOBALAMIN (VITAMIN B-12) 1,000 MCG TABLET PO SCH (09:48)
[2017-06-09] MEDS: NICOTINE 21 MG/24 HR PATCH.TD24 TD SCH (09:48)
[2017-06-09] MEDS: LEVOFLOXACIN 750 MG/D5W RTU 750 MG/150 ML RTUPB IV SCH (11:37)
[2017-06-09] MEDS ORDERED: METOPROLOL TARTRATE PF/INJ 5 MG/5 ML SDV IV ONE (13:10)
[2017-06-09] MEDS ORDERED: METOPROLOL SUCCINATE 25 MG TAB.SR.24H PO ONE (13:10)
[2017-06-09] MEDS ORDERED: NORMAL SALINE 1000 ML 1,000 ML IV ONE (14:00)
[2017-06-09 14:34] LABS: ABSOLUTE BASOPHILS # (AUTO) 0.1 10^3/uL (0.0-0.2); ABSOLUTE LYMPHOCYTES (AUTO) 0.8 10^3/uL (0.5-4.7); ABSOLUTE MONOCYTES (AUTO) 2.3 10^3/uL (0.1-1.4); ABSOLUTE NEUT (AUTO) 9.2 10^3/uL (1.7-8.2); BASOPHILS % (AUTO) 0.5 % (0-2); EOSINOPHILS % (AUTO) 0.3 % (0-6); HEMATOCRIT 30.6 % (36.0-47.0); HEMOGLOBIN 10.4 g/dL (12.0-15.5); HGB HCT DIFFERENCE 0.6; LYMPHOCYTES % (AUTO) 6.5 % (13-45); MEAN CORPUSCULAR HEMOGLOBIN 35.9 pg (27.0-33.4); MEAN CORPUSCULAR VOLUME 106 fl (80-97); MONOCYTES % (AUTO) 18.8 % (3-13); RED CELL DISTRIBUTION WIDTH 13.7 % (11.5-14.0); SEGMENTED NEUTROPHILS % (AUTO) 73.9 % (42-78); WHITE BLOOD COUNT 12.5 10^3/uL (4.0-10.5)
[2017-06-09 14:41] LABS: ANION GAP 11 (5-19); BLOOD UREA NITROGEN 3 mg/dL (7-20); CARBON DIOXIDE 28 mmol/L (22-30); CHLORIDE 92 mmol/L (98-107); CREATININE RESULT 0.43 mg/dL (0.52-1.25); GLUCOSE 156 mg/dL (75-110); MAGNESIUM 2.1 mg/dL (1.6-2.3); POTASSIUM 3.1 mmol/L (3.6-5.0); SODIUM 131.3 mmol/L (137-145)
[2017-06-09 17:03] VITALS: BP 97/63
--- NOTE | 2017-06-09 17:22 | PDOC PROGRESS REPORT ---
Subjective Progress Note for:: 06/08/17 Subjective:: Patient is a 51-year-old female who presents with a complaint of not feeling well for 2 weeks. Patient has a persisting cavitary lesion on chest x- ray with worsening findings on CT scans. She no longer having fevers however she is tachycardic. Patient states she is feeling better and eating better. Patient is asking when she will be able to go home. Patient asking if she could have a shower. Physical Exam Vital Signs: Temp Pulse Resp BP Pulse Ox 98.4 F 104 H 19 97/63 L 100 06/09/17 16:49 06/09/17 16:49 06/09/17 16:49 06/09/17 16:49 06/09/17 16:49 Intake & Output 06/08/17 06/09/17 06/10/17 06:59 06:59 06:59 Intake Total 4685 6317 355 Output Total 2600 4625 900 Balance 2085 1692 -545 Weight 56.6 kg 56.6 kg General appearance: PRESENT: no acute distress, disheveled Head exam: PRESENT: normocephalic Eye exam: PRESENT: EOMI. ABSENT: scleral icterus Ear exam: PRESENT: normal external ear exam Mouth exam: PRESENT: moist Neck exam: ABSENT: carotid bruit, JVD, lymphadenopathy, thyromegaly Respiratory exam: PRESENT: rhonchi, unlabored. ABSENT: wheezes Cardiovascular exam: PRESENT: tachycardia. ABSENT: diastolic murmur, rubs, systolic murmur Pulses: PRESENT: normal dorsalis pedis pul Vascular exam: PRESENT: normal capillary refill GI/Abdominal exam: PRESENT: normal bowel sounds, soft. ABSENT: distended, guarding, mass, organolmegaly, rebound, tenderness Rectal exam: PRESENT: deferred Extremities exam: PRESENT: full ROM. ABSENT: calf tenderness, clubbing, pedal edema Neurological exam: PRESENT: alert, awake, oriented to person, oriented to place , oriented to time, oriented to situation, CN II-XII grossly intact. ABSENT: motor sensory deficit Psychiatric exam: PRESENT: appropriate affect, normal mood. ABSENT: homicidal ideation, suicidal ideation Skin exam: PRESENT: dry, intact, warm. ABSENT: cyanosis, rash Results Laboratory Results: 06/09/17 14:03 06/09/17 14:03 06/09/17 06/09/17 06/09/17 03:24 03:24 03:24 WBC 13.2 H RBC 2.64 L Hgb 9.5 L Hct 27.6 L MCV 104 H MCH 36.0 H MCHC 34.5 RDW 14.0 Plt Count 302 Seg Neutrophils % Not Reportable Lymphocytes % Not Reportable Monocytes % Not Reportable Eosinophils % Not Reportable Basophils % Not Reportable Absolute Neutrophils Not Reportable Absolute Lymphocytes Not Reportable Absolute Monocytes Not Reportable Absolute Eosinophils Not Reportable Absolute Basophils Not Reportable Sodium 128.3 L Potassium 2.8 L* Chloride 92 L Carbon Dioxide 28 Anion Gap 8 BUN 2 L Creatinine 0.36 L Est GFR ( Amer) > 60 Est GFR (Non-Af Amer) > 60 Glucose 128 H Calcium 7.6 L Magnesium 1.4 L 06/09/17 06/09/17 14:03 14:03 WBC 12.5 H RBC 2.90 L Hgb 10.4 L Hct 30.6 L MCV 106 H MCH 35.9 H MCHC 34.0 RDW 13.7 Plt Count 318 Seg Neutrophils % 73.9 Lymphocytes % 6.5 L Monocytes % 18.8 H Eosinophils % 0.3 Basophils % 0.5 Absolute Neutrophils 9.2 H Absolute Lymphocytes 0.8 Absolute Monocytes 2.3 H Absolute Eosinophils 0.0 Absolute Basophils 0.1 Sodium 131.3 L Potassium 3.1 L Chloride 92 L Carbon Dioxide 28 Anion Gap 11 BUN 3 L Creatinine 0.43 L Est GFR ( Amer) > 60 Est GFR (Non-Af Amer) > 60 Glucose 156 H Calcium 8.0 L Magnesium 2.1 06/06/17 19:05 Sputum Gram Stain - Final 06/06/17 19:05 Sputum Sputum Culture - Final Mrsa (Meth Resis Staph Aureus) Normal [place] Absent Impressions: Chest X-Ray 06/06/17 10:49 IMPRESSION: Recurrent cavitary infiltrate in the left upper lobe, worrisome for atypical pneumonia or tuberculosis Chest CT 06/07/17 10:00 IMPRESSION: Multifocal cavitary lesion with surrounding airspace disease. Findings are certainly worrisome for recurrent aspiration or atypical pneumonia , or tuberculosis Assessment & Plan - Diagnosis (1) Sepsis Is this a current diagnosis for this admission?: Yes Plan: Patient with fever, hypotension, leukocytosis, tachycardia most like aspiration pneumonia. Patient on vancomycin, cefepime and levaquin. Continue aggressive fluid resuscitation. Blood culture no growth to date. Urine culture no growth to date. Sputum culture growning gram positive cocci in clusters. Continue broad-spectrum antibiotics until culture final. Leukocytosis signficantly improved and leukocytosis significantly improved. Patient still tachycardic but this may be possibly withdrawal. (2) Pulmonary cavitary lesion Is this a current diagnosis for this admission?: Yes Plan: Patient was found to have this cavitary lesion in the past. Patient was actually sent to [place] for further evaluation. She is now here again similar presentation. Patient started on broad-spectrum antibiotics with cefepime, Levaquin, and vancomycin. Blood cultures sent. Sputum culture ordered. TB was ruled out earlier in the year. Strep pneumonia, Legionella, mycoplasma and aspergillus pending. Influenza negative. Concerned that this may be the result of recurrent aspiration as patient states that she has been vomiting or an adequate treatment of previous infection. Discussed case with ID at [facility]. Patient does not need a prolong coarse of antibiotics. The cavitary lesion is chronic. Furthermore, TB has been ruled out. Work up for aspergillous can be done out patient with a bronch, if deemed necessary. (3) Alcohol abuse Is this a current diagnosis for this admission?: Yes Plan: Chronic alcohol abuse. Patient concerned about withdrawal. Continue scheduled Valium and PRN ativan. Patient also has a clonidine patch. (4) Hypokalemia Is this a current diagnosis for this admission?: Yes Plan: Due to poor dietary intake. Resolved. Will continue to monitor. (5) Hyponatremia Is this a current diagnosis for this admission?: Yes Plan: Patient is possible SIADH from her current infection or secondary to alcohol abuse. Patient is asymptomatic therefore, she will be treated with normal saline. Sodium is gradually improving. (6) Tobacco abuse Is this a current diagnosis for this admission?: Yes Plan: Patient requested nicotine patch. Patient counseled on smoking cessation. (7) Nausea and vomiting Is this a current diagnosis for this admission?: Yes Plan: Now resolved. Will continue with PRN atiemetics. (8) Macrocytic anemia Is this a current diagnosis for this admission?: Yes Plan: Possibly due to chronic alcohol abuse. B12 and folate are normal. Will not check thyroid studies at this time as they are more likely to be abnormal due to acute illness. Continue thiamine, folic acid and B12 replacement. - Time Time Spent with patient: Less than 15 minutes Anticipated discharge: Home with Homehealth Within: within 24 hours - Inpatient Certification Medical Necessity: Need Close Monitoring Due to Risk of Patient Decompensation
--- NOTE | 2017-06-09 17:39 | PDOC TRANSFER SUMMARY ---
General - Admit/Disc Date/PCP Admission Date/Primary Care Provider: 06/06/17 15:21 Discharge Date: 06/09/17 - Discharge Diagnosis (1) Sepsis Is this a current diagnosis for this admission?: Yes (2) Pulmonary cavitary lesion Is this a current diagnosis for this admission?: Yes (3) Alcohol abuse Is this a current diagnosis for this admission?: Yes (4) Hypokalemia Is this a current diagnosis for this admission?: Yes (5) Hyponatremia Is this a current diagnosis for this admission?: Yes (6) Tobacco abuse Is this a current diagnosis for this admission?: Yes (7) Nausea and vomiting Is this a current diagnosis for this admission?: Yes (8) Macrocytic anemia Is this a current diagnosis for this admission?: Yes - Additional Information Resuscitation Status: Full Code Discharge Diet: Regular Discharge Activity: Activity As Tolerated Home Medications: Diazepam [Valium 5 mg Tablet] 5 mg PO Q6 2 Days #8 tablet 06/09/17 Sulfamethoxazole/Trimethoprim [Septra-Ds 800-160 mg Tablet] 1 tab PO BID 7 Days #14 tablet 06/09/17 History of Present Illness Admission Date/PCP: 06/06/17 15:21 History of Present Illness: MARIA DE JESUS CAMPOS is a 51 year old female is with fever and cough. Patient states she has not been feeling well for the last several weeks. Patient says her cough is productive with yellow sputum. She states that she has been hot and cold. She states she has been called to the point of shaking. Patient states she is lost her appetite. Patient states she has had no energy to do any work. Patient states she has had several episodes of vomiting. Patient states last time she was ill one year ago she has not been sick again. Patient denies any sick contacts. ED patient was noted to be febrile hyponatremic hypokalemic with hypomagnesemia. Patient chest x-ray shows cavitary lesion. This was called to admit patient for possible pneumonia and electrolyte derangements. Hospital Course Hospital Course: (1) Sepsis Patient with fever, hypotension, leukocytosis, tachycardia most likely aspiration pneumonia. Sputum culture now growing MRSA. Patient transitioned from vancomycin, cefepime and levaquin to bactrium to be treated for 7 days. Patient fever resolved. Leukocytosis significantly improved. (2) Pulmonary cavitary lesion Patient was found to have this cavitary lesion in the past. Patient was actually sent to [facility] for further evaluation. She is now here again similar presentation. Patient started on broad-spectrum antibiotics with cefepime, Levaquin, and vancomycin. Blood cultures sent. Sputum culture ordered. TB was ruled out earlier in the year. Strep pneumonia was negative. Legionella pending. Mycoplasma pending and aspergillus pending. Influenza negative. There was concern for recurrent aspiration to patient's alcohol history. Patient does not have any swallowing difficulties. Patient sputum growning MRSA and was switched to bactrium bid x 7 days. Again patient is now afibrile with leukocytosis in the 12,000 now. (3) Alcohol abuse Chronic alcohol abuse. Patient was persistently tachycardic despite receiving adequate rehydration. Concern that patient may be withdrawing. Patient was on valium, ativan, and clonidine. Patient being discharged on 2 days worth of valium. Patient does not want to continue drinking. (4) Hypokalemia Patient potassium was 3.1. Patient given 40mEq prior to discharge home. (5) Hyponatremia Patient has possible SIADH from her current infection, alcohol abuse. Patient can also be dehydrated. Patient sodium is now in the low 30's. (6) Tobacco abuse Patient requested nicotine patch. Patient counseled on smoking cessation. (7) Nausea and vomiting Now resolved. Patient is tolerating diet. (8) Macrocytic anemia Possibly due to chronic alcohol abuse. B12 and folate are normal. Will not check thyroid studies at this time as they are more likely to be abnormal due to acute illness. Physical Exam Vital Signs: Temp Pulse Resp BP Pulse Ox 98.4 F 104 H 19 97/63 L 100 06/09/17 16:49 06/09/17 16:49 06/09/17 16:49 06/09/17 16:49 06/09/17 16:49 Intake & Output 06/08/17 06/09/17 06/10/17 06:59 06:59 06:59 Intake Total 0786 1833 355 Output Total 9582 4591 900 Balance 2085 1692 -545 Weight 56.6 kg 56.6 kg General appearance: PRESENT: no acute distress, disheveled Head exam: PRESENT: normocephalic Eye exam: PRESENT: EOMI. ABSENT: scleral icterus Ear exam: PRESENT: normal external ear exam Mouth exam: PRESENT: moist, tongue midline Neck exam: ABSENT: carotid bruit, JVD, lymphadenopathy, thyromegaly Respiratory exam: PRESENT: clear to auscultation billy. ABSENT: rales, rhonchi, wheezes Cardiovascular exam: PRESENT: tachycardia. ABSENT: diastolic murmur, rubs, systolic murmur GI/Abdominal exam: PRESENT: normal bowel sounds, soft. ABSENT: distended, guarding, mass, organolmegaly, rebound, tenderness Rectal exam: PRESENT: deferred Extremities exam: PRESENT: full ROM. ABSENT: calf tenderness, clubbing, pedal edema Neurological exam: PRESENT: alert, awake, oriented to person, oriented to place , oriented to time, oriented to situation, CN II-XII grossly intact. ABSENT: motor sensory deficit Psychiatric exam: PRESENT: appropriate affect, normal mood. ABSENT: homicidal ideation, suicidal ideation Skin exam: PRESENT: dry, intact, warm. ABSENT: cyanosis, rash Results Laboratory Results: 06/09/17 14:03 06/09/17 14:03 06/09/17 06/09/17 06/09/17 03:24 03:24 03:24 WBC 13.2 H RBC 2.64 L Hgb 9.5 L Hct 27.6 L MCV 104 H MCH 36.0 H MCHC 34.5 RDW 14.0 Plt Count 302 Seg Neutrophils % Not Reportable Lymphocytes % Not Reportable Monocytes % Not Reportable Eosinophils % Not Reportable Basophils % Not Reportable Absolute Neutrophils Not Reportable Absolute Lymphocytes Not Reportable Absolute Monocytes Not Reportable Absolute Eosinophils Not Reportable Absolute Basophils Not Reportable Sodium 128.3 L Potassium 2.8 L* Chloride 92 L Carbon Dioxide 28 Anion Gap 8 BUN 2 L Creatinine 0.36 L Est GFR ( Amer) > 60 Est GFR (Non-Af Amer) > 60 Glucose 128 H Calcium 7.6 L Magnesium 1.4 L 06/09/17 06/09/17 14:03 14:03 WBC 12.5 H RBC 2.90 L Hgb 10.4 L Hct 30.6 L MCV 106 H MCH 35.9 H MCHC 34.0 RDW 13.7 Plt Count 318 Seg Neutrophils % 73.9 Lymphocytes % 6.5 L Monocytes % 18.8 H Eosinophils % 0.3 Basophils % 0.5 Absolute Neutrophils 9.2 H Absolute Lymphocytes 0.8 Absolute Monocytes 2.3 H Absolute Eosinophils 0.0 Absolute Basophils 0.1 Sodium 131.3 L Potassium 3.1 L Chloride 92 L Carbon Dioxide 28 Anion Gap 11 BUN 3 L Creatinine 0.43 L Est GFR ( Amer) > 60 Est GFR (Non-Af Amer) > 60 Glucose 156 H Calcium 8.0 L Magnesium 2.1 06/06/17 19:05 Sputum Gram Stain - Final 06/06/17 19:05 Sputum Sputum Culture - Final Mrsa (Meth Resis Staph Aureus) Normal [place] Absent Impressions: Chest X-Ray 06/06/17 10:49 IMPRESSION: Recurrent cavitary infiltrate in the left upper lobe, worrisome for atypical pneumonia or tuberculosis Chest CT 06/07/17 10:00 IMPRESSION: Multifocal cavitary lesion with surrounding airspace disease. Findings are certainly worrisome for recurrent aspiration or atypical pneumonia , or tuberculosis Transfer Plan - Time Spent with Patient Time spent with patient: Greater than 30 Minutes Qualifiers PATEINT BEING DISCHARGED WITH ANY OF THE FOLLOWING DIAGNOSIS?: No Plan Time Spent: Greater than 30 Minutes - Patient advised to please complete her antibiotic course. Patient asked to stay well hydrated. Patient to refrain from drinking.
--- NOTE | 2017-06-09 17:56 | PDOC DISCHARGE SUMMARY ---
General - Admit/Disc Date/PCP Admission Date/Primary Care Provider: 06/06/17 15:21 Discharge Date: 06/09/17 - Discharge Diagnosis (1) Sepsis Is this a current diagnosis for this admission?: Yes (2) Pulmonary cavitary lesion Is this a current diagnosis for this admission?: Yes (3) Alcohol abuse Is this a current diagnosis for this admission?: Yes (4) Hypokalemia Is this a current diagnosis for this admission?: Yes (5) Hyponatremia Is this a current diagnosis for this admission?: Yes (6) Tobacco abuse Is this a current diagnosis for this admission?: Yes (7) Nausea and vomiting Is this a current diagnosis for this admission?: Yes (8) Macrocytic anemia Is this a current diagnosis for this admission?: Yes - Additional Information Resuscitation Status: Full Code Discharge Diet: Regular Discharge Activity: Activity As Tolerated Home Medications: Diazepam [Valium 5 mg Tablet] 5 mg PO Q6 2 Days #8 tablet 06/09/17 Sulfamethoxazole/Trimethoprim [Septra-Ds 800-160 mg Tablet] 1 tab PO BID 7 Days #14 tablet 06/09/17 History of Present Illness History of Present Illness: MARIA DE JESUS CAMPOS is a 51 year old female is with fever and cough. Patient states she has not been feeling well for the last several weeks. Patient says her cough is productive with yellow sputum. She states that she has been hot and cold. She states she has been called to the point of shaking. Patient states she is lost her appetite. Patient states she has had no energy to do any work. Patient states she has had several episodes of vomiting. Patient states last time she was ill one year ago she has not been sick again. Patient denies any sick contacts. ED patient was noted to be febrile hyponatremic hypokalemic with hypomagnesemia. Patient chest x-ray shows cavitary lesion. This was called to admit patient for possible pneumonia and electrolyte derangements. Hospital Course Hospital Course: 1) Sepsis Patient with fever, hypotension, leukocytosis, tachycardia most likely aspiration pneumonia. Sputum culture now growing MRSA. Patient transitioned from vancomycin, cefepime and levaquin to bactrium to be treated for 7 days. Patient fever resolved. Leukocytosis significantly improved. (2) Pulmonary cavitary lesion Patient was found to have this cavitary lesion in the past. Patient was actually sent to [place] for further evaluation. She is now here again similar presentation. Patient started on broad-spectrum antibiotics with cefepime, Levaquin, and vancomycin. Blood cultures sent. Sputum culture ordered. TB was ruled out earlier in the year. Strep pneumonia was negative. Legionella pending. Mycoplasma pending and aspergillus pending. Influenza negative. There was concern for recurrent aspiration to patient's alcohol history. Patient does not have any swallowing difficulties. Patient sputum growning MRSA and was switched to bactrium bid x 7 days. Again patient is now afibrile with leukocytosis in the 12,000 now. (3) Alcohol abuse Chronic alcohol abuse. Patient was persistently tachycardic despite receiving adequate rehydration. Concern that patient may be withdrawing. Patient was on valium, ativan, and clonidine. Patient being discharged on 2 days worth of valium. Patient does not want to continue drinking. (4) Hypokalemia Patient potassium was 3.1. Patient given 40mEq prior to discharge home. (5) Hyponatremia Patient has possible SIADH from her current infection, alcohol abuse. Patient can also be dehydrated. Patient sodium is now in the low 130's. (6) Tobacco abuse Patient requested nicotine patch. Patient counseled on smoking cessation. (7) Nausea and vomiting Now resolved. Patient is tolerating diet. (8) Macrocytic anemia Possibly due to chronic alcohol abuse. B12 and folate are normal. Will not check thyroid studies at this time as they are more likely to be abnormal due to acute illness. Physical Exam Vital Signs: Temp Pulse Resp BP Pulse Ox 98.4 F 104 H 19 97/63 L 100 06/09/17 16:49 06/09/17 16:49 06/09/17 16:49 06/09/17 16:49 06/09/17 16:49 Intake & Output 06/08/17 06/09/17 06/10/17 06:59 06:59 06:59 Intake Total 6266 6549 355 Output Total 1017 9056 900 Balance 2085 1692 -545 Weight 56.6 kg 56.6 kg General appearance: PRESENT: no acute distress Head exam: PRESENT: normocephalic Eye exam: PRESENT: EOMI. ABSENT: scleral icterus Ear exam: PRESENT: normal external ear exam Mouth exam: PRESENT: moist Neck exam: ABSENT: carotid bruit, JVD, lymphadenopathy, thyromegaly Respiratory exam: PRESENT: clear to auscultation billy. ABSENT: rales, rhonchi, wheezes Cardiovascular exam: PRESENT: RRR. ABSENT: diastolic murmur, rubs, systolic murmur GI/Abdominal exam: PRESENT: normal bowel sounds, soft. ABSENT: distended, guarding, mass, organolmegaly, rebound, tenderness Rectal exam: PRESENT: deferred Extremities exam: PRESENT: full ROM. ABSENT: calf tenderness, clubbing, pedal edema Neurological exam: PRESENT: alert, awake, oriented to person, oriented to place , oriented to time, oriented to situation, CN II-XII grossly intact. ABSENT: motor sensory deficit Psychiatric exam: PRESENT: appropriate affect, normal mood. ABSENT: homicidal ideation, suicidal ideation Skin exam: PRESENT: dry, intact, warm. ABSENT: cyanosis, rash Results Laboratory Results: 06/09/17 14:03 06/09/17 14:03 06/09/17 06/09/17 06/09/17 03:24 03:24 03:24 WBC 13.2 H RBC 2.64 L Hgb 9.5 L Hct 27.6 L MCV 104 H MCH 36.0 H MCHC 34.5 RDW 14.0 Plt Count 302 Seg Neutrophils % Not Reportable Lymphocytes % Not Reportable Monocytes % Not Reportable Eosinophils % Not Reportable Basophils % Not Reportable Absolute Neutrophils Not Reportable Absolute Lymphocytes Not Reportable Absolute Monocytes Not Reportable Absolute Eosinophils Not Reportable Absolute Basophils Not Reportable Sodium 128.3 L Potassium 2.8 L* Chloride 92 L Carbon Dioxide 28 Anion Gap 8 BUN 2 L Creatinine 0.36 L Est GFR ( Amer) > 60 Est GFR (Non-Af Amer) > 60 Glucose 128 H Calcium 7.6 L Magnesium 1.4 L 06/09/17 06/09/17 14:03 14:03 WBC 12.5 H RBC 2.90 L Hgb 10.4 L Hct 30.6 L MCV 106 H MCH 35.9 H MCHC 34.0 RDW 13.7 Plt Count 318 Seg Neutrophils % 73.9 Lymphocytes % 6.5 L Monocytes % 18.8 H Eosinophils % 0.3 Basophils % 0.5 Absolute Neutrophils 9.2 H Absolute Lymphocytes 0.8 Absolute Monocytes 2.3 H Absolute Eosinophils 0.0 Absolute Basophils 0.1 Sodium 131.3 L Potassium 3.1 L Chloride 92 L Carbon Dioxide 28 Anion Gap 11 BUN 3 L Creatinine 0.43 L Est GFR ( Amer) > 60 Est GFR (Non-Af Amer) > 60 Glucose 156 H Calcium 8.0 L Magnesium 2.1 06/06/17 19:05 Sputum Gram Stain - Final 06/06/17 19:05 Sputum Sputum Culture - Final Mrsa (Meth Resis Staph Aureus) Normal [place] Absent Impressions: Chest X-Ray 06/06/17 10:49 IMPRESSION: Recurrent cavitary infiltrate in the left upper lobe, worrisome for atypical pneumonia or tuberculosis Chest CT 06/07/17 10:00 IMPRESSION: Multifocal cavitary lesion with surrounding airspace disease. Findings are certainly worrisome for recurrent aspiration or atypical pneumonia , or tuberculosis Qualifiers PATEINT BEING DISCHARGED WITH ANY OF THE FOLLOWING DIAGNOSIS?: No Plan Time Spent: Greater than 30 Minutes
[2017-06-09] MEDS ORDERED: SULFAMETHOXAZOLE/TRIMETHOPRIM 800-160 MG TABLET PO SCH (18:00)
[2017-06-11 21:08] LABS: ASPERGILLUS FLAVUS Negative (Neg:<1:1); ASPERGILLUS FUMIGATUS Negative (Neg:<1:1)
[2017-06-12 10:53] LABS: ASPERGILLUS NIGER Negative (Neg:<1:1)
[2017-06-13] MEDS ORDERED: CLONIDINE 0.1 MG/24 HR PATCH.TDWK TD SCH (10:00)
== END 2017-06-09 17:34 | disposition home or self-care (01) | DRG 871 ==
LOC: ER 10:36 → UNDOADMIN 13:58 → EH 13:58 → 3N 15:21 → EH 15:42
PROVIDERS: ADMIT Pediatrics; ATTEND Pediatrics
PROC: 3E0F73Z Introduction of Anti-inflammatory into Respiratory Tract, Via Natural or Artificial Opening (ICD-10-PCS; principal; 2017-06-09)
PROC: 3E0234Z Introduction of Serum, Toxoid and Vaccine into Muscle, Percutaneous Approach (ICD-10-PCS; 2017-06-09)
DX: A41.9 Sepsis, unspecified organism (principal); J15.212 Pneumonia due to Methicillin resistant Staphylococcus aureus; E87.1 Hypo-osmolality and hyponatremia; E87.5 Hyperkalemia; J98.4 Other disorders of lung; F17.210 Nicotine dependence, cigarettes, uncomplicated; D64.89 Other specified anemias; E83.42 Hypomagnesemia; F10.10 Alcohol abuse, uncomplicated; F31.9 Bipolar disorder, unspecified; F43.10 Post-traumatic stress disorder, unspecified; Z23 Encounter for immunization; Z83.6 Family history of other diseases of the respiratory system
CPT/HCPCS: 36415; 71020; 71250; 80048; 80053; 80202; 81001; 82550; 82553; 82607; 82746; 83735; 84484; 85025; 86606; 86701; 86738; 87040; 87070; 87077; 87086; 87186; 87205; 87804; 90686; 93005; 93010; 94640; 96361; 96365; 99291; J0692; J1956; J3370; J3475; J3480; J3490; J7030; J7060; J7620; S0119

== ENCOUNTER 2017-06-23 16:14 | Emergency (ER) | payer OTHER ==
[2017-06-23 16:29] VITALS: BP 115/75
--- NOTE | 2017-06-23 16:41 | ER Document Report ---
ED Medical Screen (RME) - General Chief Complaint: Pedal Edema Stated Complaint: FEET SWELLING,CAN'T URINATE Time Seen by Provider: 06/23/17 16:40 Notes: Patient states that she was recently discharged from the hospital with pneumonia as well as several other diagnosis is. She states now she feels weak , she is having some issues with constipation. She states is also having trouble with being able to urinate. She states in addition she feels off balance and sometimes when she tries to walk one direction she feels like her legs go the other direction and she has to hold onto objects to keep from falling. TRAVEL OUTSIDE OF THE [place] IN LAST 30 DAYS: No - Related Data Allergies/Adverse Reactions: No Known Allergies Allergy (Verified 06/23/17 16:23) Home Medications: Current Home Medications No Home Medications 06/23/17 [History] Past Medical History - Social History Frequency of alcohol use: None Drug Abuse: None Pulmonary Medical History: Reports: Hx Asthma, Hx Bronchitis, Hx Pneumonia Denies: Hx Tuberculosis Neurological Medical History: Denies: Hx Seizures Renal/ Medical History: Denies: Hx Peritoneal Dialysis Psychiatric Medical History: Reports: Hx Bipolar Disorder, Hx Depression, Hx Post Traumatic Stress Disorder Past Surgical History: Reports: Hx Tubal Ligation. Denies: Hx Appendectomy, Hx Bowel Surgery, Hx Section, Hx Cholecystectomy, Hx Coronary Artery Bypass Graft, Hx Gastric Bypass Surgery, Hx Herniorrhaphy, Hx Hysterectomy, Hx Mastectomy, Hx Pacemaker, Hx Tonsillectomy - Immunizations Hx Diphtheria, Pertussis, Tetanus Vaccination: Yes History of Influenza Vaccine for 05/2017 - 10/2017 Season: No Physical Exam - Vital signs Vitals: Temp Pulse Resp BP Pulse Ox 98.7 F 98 16 115/75 97 06/23/17 16:23 06/23/17 16:23 06/23/17 16:23 06/23/17 16:23 06/23/17 16:23 Course - Vital Signs Vital signs: Temp Pulse Resp BP Pulse Ox 98.7 F 98 16 115/75 97 06/23/17 16:23 06/23/17 16:23 06/23/17 16:23 06/23/17 16:23 06/23/17 16:23
[2017-06-23 17:15] LABS: ABSOLUTE EOSINOPHILS # (AUTO) 0.1 10^3/uL (0.0-0.6); ABSOLUTE LYMPHOCYTES (AUTO) 1.7 10^3/uL (0.5-4.7); ABSOLUTE MONOCYTES (AUTO) 0.6 10^3/uL (0.1-1.4); BASOPHILS % (AUTO) 0.4 % (0-2); EOSINOPHILS % (AUTO) 0.8 % (0-6); HEMATOCRIT 24.9 % (36.0-47.0); HEMOGLOBIN 8.4 g/dL (12.0-15.5); HGB HCT DIFFERENCE 0.3; LYMPHOCYTES % (AUTO) 26.2 % (13-45); MEAN CORPUSCULAR HEMOGLOBIN 35.3 pg (27.0-33.4); MEAN CORPUSCULAR HGB CONC 33.7 g/dL (32.0-36.0); MEAN CORPUSCULAR VOLUME 105 fl (80-97); RED BLOOD COUNT 2.38 10^6/uL (3.72-5.28); RED CELL DISTRIBUTION WIDTH 14.5 % (11.5-14.0); SEGMENTED NEUTROPHILS % (AUTO) 63.6 % (42-78); WHITE BLOOD COUNT 6.3 10^3/uL (4.0-10.5)
[2017-06-23 17:26] LABS: ALANINE AMINOTRANSFERASE 22 U/L (9-52); ALBUMIN 2.7 g/dL (3.5-5.0); ALKALINE PHOSPHATASE 151 U/L (38-126); ANION GAP 10 (5-19); ASPARTATE AMINO TRANSFERASE 27 U/L (14-36); BILIRUBIN,DIRECT 0.3 mg/dL (0.0-0.4); BILIRUBIN,TOTAL 0.3 mg/dL (0.2-1.3); BLOOD UREA NITROGEN 9 mg/dL (7-20); CARBON DIOXIDE 26 mmol/L (22-30); CHLORIDE 105 mmol/L (98-107); GLUCOSE 51 mg/dL (75-110); SODIUM 140.5 mmol/L (137-145); TOTAL PROTEIN 6.6 g/dL (6.3-8.2)
[2017-06-23 17:46] LABS: APPEARANCE,URINE SLIGHTLY-CLOUDY; BILIRUBIN,URINE NEGATIVE (NEGATIVE); GLUCOSE, URINE NEGATIVE (NEGATIVE); KETONES,URINE NEGATIVE (NEGATIVE); LEUKOCYTE ESTERASE,URINE TRACE (NEGATIVE); NITRITE,URINE NEGATIVE (NEGATIVE); PROTEIN,URINE NEGATIVE (NEGATIVE); URINE SPECIFIC GRAVITY 1.006; UROBILINOGEN,URINE NEGATIVE mg/dL (<2.0)
--- NOTE | 2017-06-23 18:17 | ER Document Report ---
ED General - General Chief Complaint: Pedal Edema Stated Complaint: FEET SWELLING,CAN'T URINATE Time Seen by Provider: 06/23/17 16:40 Notes: The patient is a 51-year-old female who presents with several days of swelling around her ankles that is worse at the end of the day and is improved using her compression stockings. She was admitted to the hospital for pneumonia 2 weeks ago and said the swelling started after she was discharged. She does not remember if she was on steroids. Patient also said that she is able to urinate , but it is less than normal. Patient denies shortness of breath, nausea, vomiting, fevers, coughing, chest pain, leg swelling or hemoptysis. TRAVEL OUTSIDE OF THE [place] IN LAST 30 DAYS: No - Related Data Allergies/Adverse Reactions: No Known Allergies Allergy (Verified 06/23/17 16:23) Past Medical History - General Information source: Patient - Social History Smoking Status: Current Every Day Smoker Frequency of alcohol use: None Drug Abuse: None Family History: COPD Patient has suicidal ideation: No Patient has homicidal ideation: No Pulmonary Medical History: Reports: Hx Asthma, Hx Bronchitis, Hx Pneumonia Denies: Hx Tuberculosis Neurological Medical History: Denies: Hx Seizures Renal/ Medical History: Denies: Hx Peritoneal Dialysis Psychiatric Medical History: Reports: Hx Bipolar Disorder, Hx Depression, Hx Post Traumatic Stress Disorder Past Surgical History: Reports: Hx Tubal Ligation. Denies: Hx Appendectomy, Hx Bowel Surgery, Hx Section, Hx Cholecystectomy, Hx Coronary Artery Bypass Graft, Hx Gastric Bypass Surgery, Hx Herniorrhaphy, Hx Hysterectomy, Hx Mastectomy, Hx Pacemaker, Hx Tonsillectomy - Immunizations Hx Diphtheria, Pertussis, Tetanus Vaccination: Yes Hx Pneumococcal Vaccination: 08/03/10 Review of Systems - Review of Systems Notes: REVIEW OF SYSTEMS: CONSTITUTIONAL: -fevers, -chills EENT: -eye pain, -difficulty swallowing, -nasal congestion CARDIOVASCULAR:-chest pain, -syncope. RESPIRATORY: -cough, -SOB GASTROINTESTINAL: -abdominal pain, -nausea, -vomiting, -diarrhea GENITOURINARY: -dysuria, -hematuria MUSCULOSKELETAL: -back pain, -neck pain, +pedal edema SKIN: -rash or skin lesions. HEMATOLOGIC: -easy bruising or bleeding. LYMPHATIC: -swollen, enlarged glands. NEUROLOGICAL: -altered mental status or loss of consciousness, -headache, - neurologic symptoms PSYCHIATRIC: -anxiety, -depression. ALL OTHER SYSTEMS REVIEWED AND NEGATIVE. Physical Exam - Vital signs Vitals: Temp Pulse Resp BP Pulse Ox 98.7 F 98 16 115/75 97 06/23/17 16:23 06/23/17 16:23 06/23/17 16:23 06/23/17 16:23 06/23/17 16:23 - Notes Notes: PHYSICAL EXAMINATION: GENERAL: Well-appearing, well-nourished and in no acute distress. HEAD: Atraumatic, normocephalic. EYES: Pupils equal round and reactive to light, extraocular movements intact, sclera anicteric, conjunctiva are normal. ENT: nares patent, oropharynx clear without exudates. Moist mucous membranes. NECK: Normal range of motion, supple without lymphadenopathy LUNGS: Breath sounds clear to auscultation bilaterally and equal. No wheezes rales or rhonchi. HEART: Regular rate and rhythm without murmurs ABDOMEN: Soft, nontender, normoactive bowel sounds. No guarding, no rebound. No masses appreciated. EXTREMITIES: Normal range of motion. 1+ edema around B/L ankles. No calf tenderness. Strong distal pulses. No cyanosis. NEUROLOGICAL: Cranial nerves grossly intact. Normal speech, normal gait. Normal sensory and motor exams. PSYCH: Normal mood, normal affect. SKIN: Warm, Dry, normal turgor, no rashes or lesions noted. Course - Re-evaluation Re-evalutation: Patient appears well. Her initial hypoglycemia after eating food. She has evidence of bilateral pitting edema around her ankles, which is most likely from immobilization during her recent hospitalization. She says that her pedal edema improves when she wears compression stockings and keeps her legs elevated. Instructed her about continuing a low-salt diet, fluid restriction and wearing compression stockings with leg elevation. Will provide her with 3 days of 20 mg Lasix to help with that edema. She has no calf tenderness to suggest DVTs. She is not appear to be in any respiratory distress and her lung sounds are clear. Rest of blood work is unremarkable. Instructed her to follow -up with her primary care physician as already scheduled next week and return to the ER if she has any worsening symptoms. - Vital Signs Vital signs: Temp Pulse Resp BP Pulse Ox 98.7 F 98 18 115/75 97 06/23/17 16:23 06/23/17 16:23 06/23/17 17:55 06/23/17 16:23 06/23/17 16:23 - Laboratory Result Diagrams: 06/23/17 16:53 06/23/17 16:53 Laboratory results interpreted by me: 06/23/17 06/23/17 06/23/17 16:53 16:53 17:30 RBC 2.38 L Hgb 8.4 L Hct 24.9 L MCV 105 H MCH 35.3 H RDW 14.5 H Glucose 51 L Calcium 8.0 L Alkaline Phosphatase 151 H Albumin 2.7 L Urine Blood SMALL H Ur Leukocyte Esterase TRACE H Discharge - Discharge Clinical Impression: Peripheral edema, Hypoglycemia Condition: Stable Disposition: HOME, SELF-CARE Additional Instructions: Edema, Peripheral You have swelling in your legs. This is called peripheral edema. It can be caused by "leaky capillaries," inflammation, disease of the leg veins, or excess salt and water in your body. Edema may be a sign of heart, kidney, or liver disease. A medical evaluation can determine if there is a serious underlying cause for your edema. Avoid prolonged standing. If you must sit for a long time, occasionally get up and walk around or elevate your legs. Support stockings can be helpful in limiting swelling. Often diuretic or water pills are used to remove excess salt and water from your body. Call the doctor or return if you develop increased swelling, pain, or redness, shortness of breath, chest pain, or any other significant change. Hypoglycemia You have suffered an episode of hypoglycemia (low blood sugar). Typical symptoms of hypoglycemia are shaking, sweating, headache, and confusion. When severe, unconsciousness or seizure may occur. Hypoglycemia occurs when a person taking insulin or diabetes pills has a change in the amount of blood sugar available -- due to exercise, decreased food intake, or alcohol. Should you feel symptoms of hypoglycemia again, immediately take some form of sugar such as sweetened juice. As the reaction subsides, eat a complex carbohydrate such as bread. If possible, check your blood sugar using a chemical strip. If episodes are occurring without obvious explanation, contact your physician for further evaluation. Prescriptions: Furosemide [Lasix 20 mg Tablet] 20 mg PO QAM #3 tablet Referrals: [facility] [Outside] - Follow up as needed
== END 2017-06-23 19:19 | disposition home or self-care (01) ==
LOC: ER 16:14
DX: R60.9 Edema, unspecified (principal); E16.2 Hypoglycemia, unspecified; R33.9 Retention of urine, unspecified; F17.200 Nicotine dependence, unspecified, uncomplicated; M79.89 Other specified soft tissue disorders
CPT/HCPCS: 36415; 80053; 81001; 82962; 85025; 99284

== ENCOUNTER → 2017-07-10 | Outpatient (CLI) | payer OTHER ==
--- NOTE | 2017-07-10 15:52 | RADIOLOGY REPORT (SQ) ---
EXAM DESCRIPTION: CHEST PA/LATERAL COMPLETED DATE/TIME: 07/10/2017 3:28 pm REASON FOR STUDY: OTHER NONSPECIFIC ABNORMAL FINDING OF LUNG FIELD CAVITARY LESION R91.8 OTHER NONS PECIFIC ABNORMAL FINDING OF LUNG FIELD COMPARISON: 06/06/2017 NUMBER OF VIEWS: Two view TECHNIQUE: Frontal and lateral radiographic images of the chest acquired. LIMITATIONS: None. FINDINGS: LUNGS AND PLEURA: Improved aeration in the left upper lobe with decrease in size of cavita ry component. There is a background of chronic interstitial changes. No effusions. MEDIASTINUM AND HILAR STRUCTURES: Stable heart size and mediastinal structures. HEART AND VASCULAR STRUCTURES: Stable appearance. BONES: No acute findings. HARDWARE: None in the chest. OTHER: No other significant finding. IMPRESSION: Resolving cavitary pneumonia. TECHNICAL DOCUMENTATION: JOB ID: [id number] [employer]- All Rights Reserved
[2017-07-10 16:54] LABS: ALANINE AMINOTRANSFERASE 21 U/L (9-52); ALBUMIN 3.1 g/dL (3.5-5.0); ALKALINE PHOSPHATASE 125 U/L (38-126); ANION GAP 14 (5-19); ASPARTATE AMINO TRANSFERASE 31 U/L (14-36); BILIRUBIN,DIRECT 0.3 mg/dL (0.0-0.4); BILIRUBIN,TOTAL 0.3 mg/dL (0.2-1.3); BLOOD UREA NITROGEN 9 mg/dL (7-20); CALCIUM 8.3 mg/dL (8.4-10.2); CARBON DIOXIDE 22 mmol/L (22-30); CHLORIDE 107 mmol/L (98-107); CREATININE RESULT 0.86 mg/dL (0.52-1.25); GLUCOSE 83 mg/dL (75-110); POTASSIUM 4.8 mmol/L (3.6-5.0); SODIUM 143.4 mmol/L (137-145); TOTAL PROTEIN 7.2 g/dL (6.3-8.2)
[2017-07-10 16:58] LABS: ABSOLUTE BASOPHILS # (AUTO) 0.1 10^3/uL (0.0-0.2); ABSOLUTE EOSINOPHILS # (AUTO) 0.1 10^3/uL (0.0-0.6); ABSOLUTE LYMPHOCYTES (AUTO) 1.5 10^3/uL (0.5-4.7); ABSOLUTE MONOCYTES (AUTO) 0.6 10^3/uL (0.1-1.4); ABSOLUTE NEUT (AUTO) 3.7 10^3/uL (1.7-8.2); BASOPHILS % (AUTO) 1.2 % (0-2); EOSINOPHILS % (AUTO) 1.7 % (0-6); HEMATOCRIT 28.3 % (36.0-47.0); HEMOGLOBIN 9.6 g/dL (12.0-15.5); HGB HCT DIFFERENCE 0.5; LYMPHOCYTES % (AUTO) 25.3 % (13-45); MEAN CORPUSCULAR HEMOGLOBIN 36.8 pg (27.0-33.4); MEAN CORPUSCULAR HGB CONC 33.9 g/dL (32.0-36.0); MEAN CORPUSCULAR VOLUME 108 fl (80-97); MONOCYTES % (AUTO) 10.1 % (3-13); RED BLOOD COUNT 2.61 10^6/uL (3.72-5.28); SEGMENTED NEUTROPHILS % (AUTO) 61.7 % (42-78)
== END ==
LOC: CCC 14:54
DX: J18.9 Pneumonia, unspecified organism (principal)
CPT/HCPCS: 36415; 71020; 80053; 85025

== ENCOUNTER 2017-07-17 14:46 | Emergency (ER) | payer OTHER ==
[2017-07-17] MEDS ORDERED: NORMAL SALINE 1000 ML 1,000 ML IV ONE (15:08)
[2017-07-17] MEDS ORDERED: METHYLPREDNISOLONE INJ 125 MG/2 ML SDV IV ONE (15:52)
[2017-07-17] MEDS ORDERED: IPRATROPIUM/ALBUTEROL 0.5-2.5 MG/3 ML AMPUL NEB ONE ×3 (15:52)
--- NOTE | 2017-07-17 16:15 | RADIOLOGY REPORT (SQ) ---
EXAM DESCRIPTION: CHEST SINGLE VIEW COMPLETED DATE/TIME: 07/17/2017 4:00 pm REASON FOR STUDY: cough sob COMPARISON: 07/10/2017 EXAM PARAMETERS: NUMBER OF VIEWS: One view. TECHNIQUE: Single frontal radiographic view of the chest acquired. RADIATION DOSE: NA LIMITATIONS: None. FINDINGS: LUNGS AND PLEURA: The lungs are hyperexpanded. There is scarring extending from the left hilum into the left upper lobe. MEDIASTINUM AND HILAR STRUCTURES: No masses. Contour normal. HEART AND VASCULAR STRUCTURES: Heart normal in size. Normal vasculature. BONES: No acute findings. HARDWARE: None in the chest. OTHER: No other significant finding. IMPRESSION: Chronic lung changes with no acute cardiopulmonary disease. TECHNICAL DOCUMENTATION: JOB ID: [id number] [employer]- All Rights Reserved
[2017-07-17 16:42] LABS: VENOUS BLOOD HCO3 20.9 mmol/L (20-32); VENOUS BLOOD PCO2 37.4 mmHg (35-63); VENOUS BLOOD PH 7.37 (7.30-7.42)
[2017-07-17 16:53] LABS: HEMATOCRIT 27.7 % (36.0-47.0); HEMOGLOBIN 9.3 g/dL (12.0-15.5); HGB HCT DIFFERENCE 0.2; MEAN CORPUSCULAR HEMOGLOBIN 35.9 pg (27.0-33.4); MEAN CORPUSCULAR HGB CONC 33.7 g/dL (32.0-36.0); MEAN CORPUSCULAR VOLUME 107 fl (80-97); RED CELL DISTRIBUTION WIDTH 15.2 % (11.5-14.0); WHITE BLOOD COUNT 4.5 10^3/uL (4.0-10.5)
[2017-07-17 16:58] LABS: PROTHROMBIN TIME 13.1 SEC (11.4-15.4)
[2017-07-17 17:00] LABS: APPEARANCE,URINE CLEAR; BILIRUBIN,URINE NEGATIVE (NEGATIVE); GLUCOSE, URINE NEGATIVE (NEGATIVE); KETONES,URINE NEGATIVE (NEGATIVE); LEUKOCYTE ESTERASE,URINE NEGATIVE (NEGATIVE); NITRITE,URINE NEGATIVE (NEGATIVE); PROTEIN,URINE NEGATIVE (NEGATIVE); URINE SPECIFIC GRAVITY 1.005; UROBILINOGEN,URINE NEGATIVE mg/dL (<2.0)
[2017-07-17 17:07] LABS: ALANINE AMINOTRANSFERASE 31 U/L (9-52); ALBUMIN 3.2 g/dL (3.5-5.0); ALKALINE PHOSPHATASE 101 U/L (38-126); ANION GAP 13 (5-19); ASPARTATE AMINO TRANSFERASE 50 U/L (14-36); BILIRUBIN,DIRECT 0.2 mg/dL (0.0-0.4); BILIRUBIN,TOTAL 0.2 mg/dL (0.2-1.3); BLOOD UREA NITROGEN 9 mg/dL (7-20); CALCIUM 8.4 mg/dL (8.4-10.2); CARBON DIOXIDE 20 mmol/L (22-30); CHLORIDE 106 mmol/L (98-107); CREATININE RESULT 0.94 mg/dL (0.52-1.25); GLUCOSE 77 mg/dL (75-110); POTASSIUM 4.2 mmol/L (3.6-5.0); SODIUM 138.8 mmol/L (137-145); TOTAL PROTEIN 7.7 g/dL (6.3-8.2)
[2017-07-17 17:16] LABS: ABSOLUTE EOSINOPHILS# (MANUAL) 0.1 10^3/uL (0.0-0.6); BASOPHILS % (MANUAL) 1 % (0-2); EOSINOPHILS % (MANUAL) 2 % (0-6); LYMPHOCYTES % (MANUAL) 39 % (13-45); TOTAL CELLS COUNTED 100
[2017-07-17 17:18] LABS: ANISOCYTOSIS SLIGHT; POIKILOCYTOSIS SLIGHT; TOXIC GRANULATION SLIGHT
--- NOTE | 2017-07-17 17:32 | ER Document Report ---
ED General - General Chief Complaint: Shortness Of Breath Stated Complaint: COUGH Time Seen by Provider: 07/17/17 15:08 Mode of Arrival: Ambulatory Information source: Patient Notes: 51-year-old female who states she does not have a history of COPD however it is noted in her medical history that she does presents with complaints of shortness of breath cough. Patient states she did have a productive cough initially couple weeks ago but has since been nonproductive. Patient denies any fevers or chills denies any nausea vomiting or diarrhea TRAVEL OUTSIDE OF THE [place] IN LAST 30 DAYS: No - HPI Onset: Other - 1 month Onset/Duration: Intermittent, Waxing and waning Quality of pain: No pain Severity: Mild Pain Level: Denies Associated symptoms: Nonproductive cough, Shortness of breath Exacerbated by: Denies Relieved by: Denies Similar symptoms previously: Yes Recently seen / treated by doctor: Yes - Related Data Allergies/Adverse Reactions: No Known Allergies Allergy (Verified 07/17/17 14:47) Past Medical History - Social History Smoking Status: Current Every Day Smoker Cigarette use (# per day): Yes Chew tobacco use (# tins/day): No Smoking Education Provided: No Frequency of alcohol use: Heavy Drug Abuse: None Family History: COPD Patient has suicidal ideation: No Patient has homicidal ideation: No Pulmonary Medical History: Reports: Hx Asthma, Hx Bronchitis, Hx Pneumonia Denies: Hx Tuberculosis Neurological Medical History: Denies: Hx Seizures Renal/ Medical History: Denies: Hx Peritoneal Dialysis Psychiatric Medical History: Reports: Hx Bipolar Disorder, Hx Depression, Hx Post Traumatic Stress Disorder Past Surgical History: Reports: Hx Tubal Ligation. Denies: Hx Appendectomy, Hx Bowel Surgery, Hx Section, Hx Cholecystectomy, Hx Coronary Artery Bypass Graft, Hx Gastric Bypass Surgery, Hx Herniorrhaphy, Hx Hysterectomy, Hx Mastectomy, Hx Pacemaker, Hx Tonsillectomy - Immunizations Hx Diphtheria, Pertussis, Tetanus Vaccination: Yes Hx Pneumococcal Vaccination: 08/03/10 Review of Systems - Review of Systems Notes: REVIEW OF SYSTEMS: CONSTITUTIONAL : Denies fever, chills, or sweats. Denies recent illness. EENT: Denies eye, ear, throat, or mouth pain or symptoms. Denies nasal or sinus congestion or discharge. Denies throat, tongue, or mouth swelling or difficulty swallowing. CARDIOVASCULAR: Denies chest pain. Denies palpitations or racing or irregular heart beat. Denies ankle edema. RESPIRATORY: Admits to shortness of breath nonproductive cough GASTROINTESTINAL: Denies abdominal pain or distention. Denies nausea, vomiting , or diarrhea. Denies blood in vomitus, stools, or per rectum. Denies black, tarry stools. Denies constipation. GENITOURINARY: Denies difficulty urinating, painful urination, burning, frequency, blood in urine, or discharge. FEMALE GENITOURINARY: Denies vaginal bleeding, heavy or abnormal periods, irregular periods. Denies vaginal discharge or odor. MUSCULOSKELETAL: Denies back or neck pain or stiffness. Denies joint pain or swelling. SKIN: Denies rash, lesions or sores. HEMATOLOGIC : Denies easy bruising or bleeding. LYMPHATIC: Denies swollen, enlarged glands. NEUROLOGICAL: Denies confusion or altered mental status. Denies passing out or loss of consciousness. Denies dizziness or lightheadedness. Denies headache. Denies weakness or paralysis or loss of use of either side. Denies problems with gait or speech. Denies sensory loss, numbness, or tingling. Denies seizures. PSYCHIATRIC: Denies anxiety or stress. Denies depression, suicidal ideation, or homicidal ideation. ALL OTHER SYSTEMS REVIEWED AND NEGATIVE. PHYSICAL EXAMINATION: GENERAL: Well-appearing, well-nourished and in no acute distress. HEAD: Atraumatic, normocephalic. EYES: Pupils equal round and reactive to light, extraocular movements intact, conjunctiva are normal. ENT: Nares patent, oropharynx clear without exudates. Moist mucous membranes. NECK: Normal range of motion, supple without lymphadenopathy LUNGS: Faint wheezing inspiratory expiratory HEART: Regular rate and rhythm without murmurs ABDOMEN: Soft, nontender, nondistended abdomen. No guarding, no rebound. No masses appreciated. Female : deferred Musculoskeletal: Normal range of motion, no pitting or edema. No cyanosis. NEUROLOGICAL: Cranial nerves grossly intact. Normal speech, normal gait. Normal sensory, motor exams PSYCH: Normal mood, normal affect. SKIN: Warm, Dry, normal turgor, no rashes or lesions noted. Dictation was performed using [employer] voice recognition software Physical Exam - Vital signs Vitals: Temp Pulse Resp BP Pulse Ox 98.6 F 101 H 22 H 99/66 L 97 07/17/17 14:52 07/17/17 14:52 07/17/17 14:52 07/17/17 14:52 07/17/17 14:52 Course - Re-evaluation Re-evalutation: 07/17/17 19:03 Patient's presentation is consistent with COPD exacerbation, she was satting 97 % on room air at rest, I did give her 3 DuoNeb's and Solu-Medrol and reevaluated her, at rest she was up to 98%, she was ambulating around the emergency department was noted to drop as low as 92% but immediately went back up to 96% after sitting for less than 10 seconds therefore I do believe patient is stable for discharge, patient promises me that she will continue steroids and inhaler and that she will stop smoking Very strict return precautions have been provided and I explained that her symptoms will worsen if she continues to smoke After performing a Medical Screening Examination, I estimate there is LOW risk for ACUTE CORONARY SYNDROME, PULMONARY EMBOLI, RESPIRATORY FAILURE, SEPSIS OR MENINGITIS, thus I consider the discharge disposition reasonable. I have reevaluated this patient multiple times and no significant life threatening changes are noted. The patient and I have discussed the diagnosis and risks, and we agree with discharging home with close follow-up. We also discussed returning to the Emergency Department immediately if new or worsening symptoms occur. We have discussed the symptoms which are most concerning (e.g., changing or worsening pain, trouble swallowing or breathing, neck stiffness, fever) that necessitate immediate return. - Vital Signs Vital signs: Temp Pulse Resp BP Pulse Ox 98.6 F 101 H 14 110/65 97 07/17/17 14:52 07/17/17 14:52 07/17/17 17:47 07/17/17 17:47 07/17/17 17:47 - Laboratory Result Diagrams: 07/17/17 16:02 07/17/17 16:02 Laboratory results interpreted by me: 07/17/17 07/17/17 16:02 16:02 RBC 2.60 L Hgb 9.3 L Hct 27.7 L MCV 107 H MCH 35.9 H RDW 15.2 H Plt Count 486 H Carbon Dioxide 20 L AST 50 H Albumin 3.2 L - Diagnostic Test Radiology reviewed: Image reviewed, Reports reviewed - EKG Interpretation by Me EKG shows normal: Sinus rhythm, [place], Intervals, QRS Complexes Discharge - Discharge Clinical Impression: Tobacco abuse COPD (chronic obstructive pulmonary disease) Qualifiers: COPD type: COPD with acute exacerbation Qualified Code(s): J44.1 - Chronic obstructive pulmonary disease with (acute) exacerbation Condition: Stable Disposition: HOME, SELF-CARE Instructions: Chronic Obstructive Lung Disease ([facility]), Stop Smoking ([facility]) Additional Instructions: Follow up with your physician tomorrow for further care or return to the ED IMMEDIATELY if symptoms worsen or new concerns occur. If you cannot afford to follow up with your primary care physician a list of low cost clinics have been provided at the end of your discharge papers as well. Prescriptions: Prednisone [Deltasone 20 mg Tablet] 3 tab PO DAILY 5 Days tablet
[2017-07-17 17:57] VITALS: BP 110/65
--- NOTE | 2017-07-18 05:54 | EKG REPORT ---
SEVERITY:- BORDERLINE ECG - SINUS RHYTHM CONSIDER ANTERIOR INFARCT : Confirmed by: Donaldo Graham 18-Jul-2017 05:53:53
== END 2017-07-17 17:58 | disposition home or self-care (01) ==
LOC: ER 14:46
DX: J44.1 Chronic obstructive pulmonary disease with (acute) exacerbation (principal); R06.02 Shortness of breath; R05 Cough; F17.210 Nicotine dependence, cigarettes, uncomplicated
CPT/HCPCS: 93005; 94640 ×2; 99285; 96361; 96374; 36415; 87040; 87086; 82962; 85025; 85610; 80053; 81001; 82803; 83605; 71010; 93010; J2930; J7030; J7620

== ENCOUNTER 2018-03-01 18:05 | Inpatient (IN) | payer SELFPAY ==
[2018-03-01] MEDS ORDERED: ONDANSETRON HCL INJ/PF 4 MG/2 ML SDV IV ONE ×2 (18:34→19:53)
[2018-03-01] MEDS ORDERED: FENTANYL CITRATE INJ/PF 100 MCG/2 ML AMPUL IV ONE (18:34)
[2018-03-01] MEDS ORDERED: NORMAL SALINE 1000 ML 1,000 ML IV ONE (18:35)
--- NOTE | 2018-03-01 18:37 | ER Document Report ---
ED Medical Screen (RME) - General Chief Complaint: Cough Stated Complaint: DIFFICULTY BREATHING Time Seen by Provider: 03/01/18 18:34 Notes: 52 years old female presents today with shortness of breath cough coughing up black is sputum, with a history of smoking. And difficulty in breathing. Abdominal pain nauseous vomited couple of times and had no bowel movement. Denies any dysuria frequency urgency. Denies any fever chills. TRAVEL OUTSIDE OF THE [place] IN LAST 30 DAYS: No - Related Data Allergies/Adverse Reactions: No Known Allergies Allergy (Verified 03/01/18 18:06) Past Medical History - Social History Chew tobacco use (# tins/day): No Frequency of alcohol use: Heavy Pulmonary Medical History: Reports: Hx Asthma, Hx Bronchitis, Hx Pneumonia Denies: Hx Tuberculosis Neurological Medical History: Denies: Hx Seizures Renal/ Medical History: Denies: Hx Peritoneal Dialysis Psychiatric Medical History: Reports: Hx Bipolar Disorder, Hx Depression, Hx Post Traumatic Stress Disorder Past Surgical History: Reports: Hx Tubal Ligation. Denies: Hx Appendectomy, Hx Bowel Surgery, Hx Section, Hx Cholecystectomy, Hx Coronary Artery Bypass Graft, Hx Gastric Bypass Surgery, Hx Herniorrhaphy, Hx Hysterectomy, Hx Mastectomy, Hx Pacemaker, Hx Tonsillectomy - Immunizations Hx Diphtheria, Pertussis, Tetanus Vaccination: Yes History of Influenza Vaccine for 05/2017 - 10/2017 Season: No Physical Exam - Vital signs Vitals: Temp Pulse Resp BP Pulse Ox 97.5 F 109 H 16 86/60 L 98 03/01/18 18:21 03/01/18 18:21 03/01/18 18:21 03/01/18 18:21 03/01/18 18:21 Course - Vital Signs Vital signs: Temp Pulse Resp BP Pulse Ox 97.5 F 109 H 16 86/60 L 98 03/01/18 18:21 03/01/18 18:21 03/01/18 18:21 03/01/18 18:21 03/01/18 18:21
--- NOTE | 2018-03-01 19:11 | ER Document Report ---
ED General - General Chief Complaint: Cough Stated Complaint: DIFFICULTY BREATHING Time Seen by Provider: 03/01/18 18:34 Mode of Arrival: Ambulatory Information source: Patient Notes: 52-year-old female with COPD, alcoholism, hepatitis C, bipolar disorder presents with complaint of shortness of breath, productive cough. Patient states that shortness of breath has worsened over the last 2 weeks. She states that she has shortness of breath with any exertion. Patient does continue to smoke 10-15 cigarettes per day. She has not had any of her breathing medications in several months. Patient denies any associated chest pain, abdominal pain, back pain, dysuria, fever, chills, weight loss. Patient is concerned for alcohol withdrawal. Her last drink was this morning she states that she took a few sips of beer. She has gone through alcohol withdrawal in the past. TRAVEL OUTSIDE OF THE [place] IN LAST 30 DAYS: No - HPI Onset: Other Onset/Duration: Gradual, Persistent, Worse Quality of pain: No pain Severity: Mild Associated symptoms: Productive cough, Shortness of breath Exacerbated by: Walking Relieved by: Denies Similar symptoms previously: Yes Recently seen / treated by doctor: No - Related Data Allergies/Adverse Reactions: No Known Allergies Allergy (Verified 03/01/18 18:06) Past Medical History - General Information source: Patient, [facility] Records - Social History Smoking Status: Current Every Day Smoker Cigarette use (# per day): Yes - 15 Chew tobacco use (# tins/day): No Smoking Education Provided: Yes - 4 minutes of smoking cessation provided Frequency of alcohol use: None Drug Abuse: None Lives with: Alone Family History: COPD Patient has suicidal ideation: No Patient has homicidal ideation: No Pulmonary Medical History: Reports: Hx Asthma, Hx Bronchitis, Hx Pneumonia Denies: Hx Tuberculosis Neurological Medical History: Denies: Hx Seizures Renal/ Medical History: Denies: Hx Peritoneal Dialysis Psychiatric Medical History: Reports: Hx Bipolar Disorder, Hx Depression, Hx Post Traumatic Stress Disorder Past Surgical History: Reports: Hx Tubal Ligation. Denies: Hx Appendectomy, Hx Bowel Surgery, Hx Section, Hx Cholecystectomy, Hx Coronary Artery Bypass Graft, Hx Gastric Bypass Surgery, Hx Herniorrhaphy, Hx Hysterectomy, Hx Mastectomy, Hx Pacemaker, Hx Tonsillectomy - Immunizations Hx Diphtheria, Pertussis, Tetanus Vaccination: Yes Hx Pneumococcal Vaccination: 08/03/10 Review of Systems - Review of Systems Notes: REVIEW OF SYSTEMS: CONSTITUTIONAL : Denies fever, chills, or sweats. Denies recent illness. Denies weight loss, recent hospitalizations. EENT: Denies visual changes, eye pain. Denies nasal or sinus congestion or discharge. Denies sore throat, oral lesions, difficulty swallowing. CARDIOVASCULAR: Denies chest pain. Denies palpitations. Denies lower extremity edema. RESPIRATORY: Denies cough, cold, or chest congestion. GASTROINTESTINAL: Denies abdominal pain or distention. Denies nausea, vomiting , or diarrhea. Denies blood in vomitus, stools, or per rectum. Denies black, tarry stools. Denies constipation. GENITOURINARY: Denies difficulty urinating, painful urination, frequency, blood in urine, or vaginal discharge. MUSCULOSKELETAL: Denies back or neck pain or stiffness. Denies joint pain or swelling. SKIN: Denies rash, lesions or sores. HEMATOLOGIC : Denies easy bruising or bleeding. LYMPHATIC: Denies swollen glands. NEUROLOGICAL: Denies confusion or altered mental status. Denies passing out or loss of consciousness. Denies dizziness or lightheadedness. Denies headache. Denies weakness or paralysis. Denies problems difficulty with ambulation, slurred speech. Denies sensory loss, numbness, or tingling. Denies seizures. PSYCHIATRIC: Denies anxiety or stress. Denies depression, suicidal ideation, or homicidal ideation. Denies visual or auditory hallucinations. Physical Exam - Vital signs Vitals: Temp Pulse Resp BP Pulse Ox 97.5 F 109 H 16 86/60 L 98 03/01/18 18:21 03/01/18 18:21 03/01/18 18:21 03/01/18 18:21 03/01/18 18:21 Interpretation: Normal, Tachycardic, Other - Repeat blood pressure is 109/63. No: Hypertensive - Notes Notes: PHYSICAL EXAMINATION: GENERAL: Well-appearing, cachectic, in no acute distress HEAD: Atraumatic, normocephalic. EYES: Pupils equal round and reactive to light, extraocular movements intact, conjunctiva are normal. ENT: Nares patent, oropharynx clear without exudates. Moist mucous membranes. NECK: Normal range of motion, supple without lymphadenopathy LUNGS: Diminished breath sounds in all lung soler, no wheezes rales or rhonchi. HEART: Tachycardic, regular rhythm without murmurs ABDOMEN: Soft, nontender, nondistended abdomen. No guarding, no rebound. No masses appreciated. Female : deferred Musculoskeletal: Normal range of motion, no pitting or edema. No cyanosis. NEUROLOGICAL: Cranial nerves grossly intact. Normal speech, normal gait. Normal sensory, motor exams PSYCH: Normal mood, normal affect. SKIN: Warm, Dry, normal turgor, no rashes or lesions noted. Course - Re-evaluation Re-evalutation: 03/02/18 01:58 Laboratory 03/01/18 03/01/18 03/01/18 18:59 18:59 18:59 WBC 17.9 H RBC 2.48 L Hgb 8.9 L Hct 25.5 L MCV 103 H MCH 36.0 H MCHC 35.0 RDW 15.8 H Plt Count 323 Seg Neutrophils % 79.2 H Lymphocytes % 8.2 L Monocytes % 11.4 Eosinophils % 0.3 Basophils % 0.9 Absolute Neutrophils 14.2 H Absolute Lymphocytes 1.5 Absolute Monocytes 2.0 H Absolute Eosinophils 0.0 Absolute Basophils 0.2 VBG pH VBG pCO2 VBG HCO3 VBG Base Excess Sodium 132.8 L Potassium 3.1 L Chloride 96 L Carbon Dioxide 22 Anion Gap 15 BUN 6 L Creatinine 0.59 Est GFR ( Amer) > 60 Est GFR (Non-Af Amer) > 60 Glucose 90 Lactic Acid Calcium 7.9 L Total Bilirubin 0.4 Direct Bilirubin 0.4 Neonat Total Bilirubin Not Reportable Neonat Direct Bilirubin Not Reportable Neonat Indirect Bili Not Reportable AST 28 ALT 22 Alkaline Phosphatase 127 H Creatine Kinase 31 CK-MB (CK-2) 0.87 Troponin I < 0.012 Total Protein 6.5 Albumin 2.9 L Lipase 53.9 Urine Color Urine Appearance Urine pH Ur Specific [place] Urine Protein Urine Glucose (UA) Urine Ketones Urine Blood Urine Nitrite Urine Bilirubin Urine Urobilinogen Ur Leukocyte Esterase Urine WBC (Auto) Urine RBC (Auto) U Hyaline Cast (Auto) Urine Bacteria (Auto) Squamous Epi Cells Auto Urine Mucus (Auto) Urine Ascorbic Acid Urine Opiates Screen Urine Methadone Screen Ur Barbiturates Screen Ur Phencyclidine Scrn Ur Amphetamines Screen U Benzodiazepines Scrn Urine Cocaine Screen U Marijuana (THC) Screen Serum Alcohol 52 03/01/18 03/01/18 03/01/18 19:57 19:57 20:34 WBC RBC Hgb Hct MCV MCH MCHC RDW Plt Count Seg Neutrophils % Lymphocytes % Monocytes % Eosinophils % Basophils % Absolute Neutrophils Absolute Lymphocytes Absolute Monocytes Absolute Eosinophils Absolute Basophils VBG pH 7.40 VBG pCO2 36.3 VBG HCO3 22.1 VBG Base Excess -2.3 Sodium Potassium Chloride Carbon Dioxide Anion Gap BUN Creatinine Est GFR ( Amer) Est GFR (Non-Af Amer) Glucose Lactic Acid Calcium Total Bilirubin Direct Bilirubin Neonat Total Bilirubin Neonat Direct Bilirubin Neonat Indirect Bili AST ALT Alkaline Phosphatase Creatine Kinase CK-MB (CK-2) Troponin I Total Protein Albumin Lipase Urine Color AZAEL Urine Appearance SLIGHTLY-CLOUDY Urine pH 5.0 Ur Specific [place] 1.020 Urine Protein NEGATIVE Urine Glucose (UA) NEGATIVE Urine Ketones TRACE H Urine Blood NEGATIVE Urine Nitrite NEGATIVE Urine Bilirubin NEGATIVE Urine Urobilinogen 4.0 H Ur Leukocyte Esterase TRACE H Urine WBC (Auto) 1 Urine RBC (Auto) 1 U Hyaline Cast (Auto) 39 Urine Bacteria (Auto) TRACE Squamous Epi Cells Auto 5 Urine Mucus (Auto) OCC Urine Ascorbic Acid NEGATIVE Urine Opiates Screen NEGATIVE Urine Methadone Screen NEGATIVE Ur Barbiturates Screen NEGATIVE Ur Phencyclidine Scrn NEGATIVE Ur Amphetamines Screen NEGATIVE U Benzodiazepines Scrn NEGATIVE Urine Cocaine Screen NEGATIVE U Marijuana (THC) Screen NEGATIVE Serum Alcohol 03/01/18 23:15 WBC RBC Hgb Hct MCV MCH MCHC RDW Plt Count Seg Neutrophils % Lymphocytes % Monocytes % Eosinophils % Basophils % Absolute Neutrophils Absolute Lymphocytes Absolute Monocytes Absolute Eosinophils Absolute Basophils VBG pH VBG pCO2 VBG HCO3 VBG Base Excess Sodium Potassium Chloride Carbon Dioxide Anion Gap BUN Creatinine Est GFR ( Amer) Est GFR (Non-Af Amer) Glucose Lactic Acid 2.0 Calcium Total Bilirubin Direct Bilirubin Neonat Total Bilirubin Neonat Direct Bilirubin Neonat Indirect Bili AST ALT Alkaline Phosphatase Creatine Kinase CK-MB (CK-2) Troponin I Total Protein Albumin Lipase Urine Color Urine Appearance Urine pH Ur Specific [place] Urine Protein Urine Glucose (UA) Urine Ketones Urine Blood Urine Nitrite Urine Bilirubin Urine Urobilinogen Ur Leukocyte Esterase Urine WBC (Auto) Urine RBC (Auto) U Hyaline Cast (Auto) Urine Bacteria (Auto) Squamous Epi Cells Auto Urine Mucus (Auto) Urine Ascorbic Acid Urine Opiates Screen Urine Methadone Screen Ur Barbiturates Screen Ur Phencyclidine Scrn Ur Amphetamines Screen U Benzodiazepines Scrn Urine Cocaine Screen U Marijuana (THC) Screen Serum Alcohol Acute Abdomen Series 03/01/18 18:35 IMPRESSION: Left lower lobe pneumonia. Nonspecific abdomen. 03/02/18 01:59 52-year-old female with COPD, alcoholism, hepatitis C, bipolar disorder presents with complaint of shortness of breath, productive cough. Patient states that shortness of breath has worsened over the last 2 weeks. She states that she has shortness of breath with any exertion. Patient does continue to smoke 10-15 cigarettes per day. She has not had any of her breathing medications in several months. Patient denies any associated chest pain, abdominal pain, back pain, dysuria, fever, chills, weight loss. Patient is concerned for alcohol withdrawal. Her last drink was this morning she states that she took a few sips of beer. She has gone through alcohol withdrawal in the past. Patient was seen by myself upon arrival. Vital signs were reviewed. Patient is afebrile, normotensive and not hypoxic. Patient is mildly tachycardic. patient does appear ill but does not appear toxic or dehydrated. They are in no acute distress. Previous medical records and nursing notes reviewed. Significant findings include x-ray that shows a left lower lobe pneumonia. CBC with a leukocytosis of 17. And a hemoglobin of 8.9 which does appear to be the patient's baseline. Patient is hypokalemic at 3.2. Albumin is found to be low. EtOH 52. Patient received IV fluids, Rocephin, azithromycin, thiamine, folic acid and 2 mg of Ativan IV. Patient will be admitted to the [facility] by the hospitalist. - Vital Signs Vital signs: Temp Pulse Resp BP Pulse Ox 98.8 F 118 H 20 89/68 L 97 03/01/18 23:39 03/01/18 23:41 03/01/18 23:39 03/01/18 23:39 03/01/18 23:39 - Laboratory Result Diagrams: 03/01/18 18:59 03/01/18 18:59 Laboratory results interpreted by me: 03/01/18 03/01/18 03/01/18 18:59 18:59 19:57 WBC 17.9 H RBC 2.48 L Hgb 8.9 L Hct 25.5 L MCV 103 H MCH 36.0 H RDW 15.8 H Seg Neutrophils % 79.2 H Lymphocytes % 8.2 L Absolute Neutrophils 14.2 H Absolute Monocytes 2.0 H Sodium 132.8 L Potassium 3.1 L Chloride 96 L BUN 6 L Calcium 7.9 L Alkaline Phosphatase 127 H Albumin 2.9 L Urine Ketones TRACE H Urine Urobilinogen 4.0 H Ur Leukocyte Esterase TRACE H - Diagnostic Test Radiology reviewed: Image reviewed, Reports reviewed Discharge - Discharge Clinical Impression: Hypokalemia, Hypoalbuminemia, Hypocalcemia, Alcohol abuse Community acquired pneumonia Qualifiers: Laterality: left Lung location: lower lobe of lung Qualified Code(s): J18.1 - Lobar pneumonia, unspecified organism Leukocytosis Qualifiers: Leukocytosis type: unspecified Qualified Code(s): D72.829 - Elevated white blood cell count, unspecified COPD (chronic obstructive pulmonary disease) Qualifiers: COPD type: unspecified COPD Qualified Code(s): J44.9 - Chronic obstructive pulmonary disease, unspecified Condition: Fair Disposition: ADMITTED INPATIENT Admitting Provider: Hospitalist Unit Admitted: [facility]
[2018-03-01 19:12] LABS: ABSOLUTE BASOPHILS # (AUTO) 0.2 10^3/uL (0.0-0.2); ABSOLUTE LYMPHOCYTES (AUTO) 1.5 10^3/uL (0.5-4.7); ABSOLUTE NEUT (AUTO) 14.2 10^3/uL (1.7-8.2); BASOPHILS % (AUTO) 0.9 % (0-2); EOSINOPHILS % (AUTO) 0.3 % (0-6); HEMATOCRIT 25.5 % (36.0-47.0); HEMOGLOBIN 8.9 g/dL (12.0-15.5); LYMPHOCYTES % (AUTO) 8.2 % (13-45); MEAN CORPUSCULAR VOLUME 103 fl (80-97); MONOCYTES % (AUTO) 11.4 % (3-13); PLATELET COUNT 323 10^3/uL (150-450); RED BLOOD COUNT 2.48 10^6/uL (3.72-5.28); RED CELL DISTRIBUTION WIDTH 15.8 % (11.5-14.0); SEGMENTED NEUTROPHILS % (AUTO) 79.2 % (42-78); TOTAL CELLS COUNTED % (AUTO) 100 %; WHITE BLOOD COUNT 17.9 10^3/uL (4.0-10.5)
--- NOTE | 2018-03-01 19:27 | RADIOLOGY REPORT (SQ) ---
EXAM DESCRIPTION: ACUTE ABDOMEN SERIES COMPLETED DATE/TIME: 03/01/2018 7:12 pm REASON FOR STUDY: Abdominal pain/shortness of breath COMPARISON: None. NUMBER OF VIEWS: Three views. TECHNIQUE: Frontal chest, supine abdomen and upright/ abdomen radiographic images acquired. LIMITATIONS: None. FINDINGS: CHEST: Considerable opacification is present in the retrocardiac area on the left. FREE AIR: None. No abnormal gas collections. BOWEL GAS PATTERN: Nonobstructive pattern. No dilated loops or air fluid levels. CALCIFICATIONS: No suspicious calcifications. HARDWARE: None in the abdomen. SOFT TISSUES: No gross mass or suggestion of organomegaly. BONES: No acute fracture. No worrisome bone lesions. OTHER: No other significant finding. IMPRESSION: Left lower lobe pneumonia. Nonspecific abdomen. TECHNICAL DOCUMENTATION: JOB ID: [id number] [employer]- All Rights Reserved Reading location - IP/workstation name: [email or web address]
[2018-03-01 19:35] LABS: ALANINE AMINOTRANSFERASE 22 U/L (9-52); ALBUMIN 2.9 g/dL (3.5-5.0); ALCOHOL 52 mg/dL (NONE DETECTED); ALKALINE PHOSPHATASE 127 U/L (38-126); ANION GAP 15 (5-19); ASPARTATE AMINO TRANSFERASE 28 U/L (14-36); BILIRUBIN,DIRECT 0.4 mg/dL (0.0-0.4); BILIRUBIN,TOTAL 0.4 mg/dL (0.2-1.3); BLOOD UREA NITROGEN 6 mg/dL (7-20); CALCIUM 7.9 mg/dL (8.4-10.2); CARBON DIOXIDE 22 mmol/L (22-30); CHLORIDE 96 mmol/L (98-107); CREATINE KINASE 31 U/L (30-135); GLUCOSE 90 mg/dL (75-110); LIPASE 53.9 U/L (23-300); POTASSIUM 3.1 mmol/L (3.6-5.0); SODIUM 132.8 mmol/L (137-145); TOTAL PROTEIN 6.5 g/dL (6.3-8.2)
[2018-03-01] MEDS ORDERED: ALBUTEROL SULFATE 0.083% NEB 2.5 MG/3 ML AMPUL NEB ONE (19:35)
[2018-03-01] MEDS ORDERED: IPRATROPIUM/ALBUTEROL 0.5-2.5 MG/3 ML AMPUL NEB ONE (19:36)
[2018-03-01] MEDS ORDERED: AZITHROMYCIN 250 MG TABLET PO ONE (19:37)
[2018-03-01] MEDS ORDERED: METHYLPREDNISOLONE INJ 125 MG/2 ML SDV IV ONE (19:37)
[2018-03-01] MEDS ORDERED: CEFTRIAXONE INJ 1000 MG VIAL IV ONE (19:37)
[2018-03-01 19:45] LABS: CREATINE KINASE MB 0.87 ng/mL (<4.55)
[2018-03-01 19:46] LABS: TROPONIN I < 0.012 ng/mL
[2018-03-01] MEDS ORDERED: METOCLOPRAMIDE HCL INJ/PF 10 MG/2 ML SDV IV ONE (19:54)
[2018-03-01 20:29] LABS: APPEARANCE,URINE SLIGHTLY-CLOUDY; BILIRUBIN,URINE NEGATIVE (NEGATIVE); COLOR,URINE AMBER; GLUCOSE, URINE NEGATIVE (NEGATIVE); KETONES,URINE TRACE mg/dL (NEGATIVE); LEUKOCYTE ESTERASE,URINE TRACE (NEGATIVE); NITRITE,URINE NEGATIVE (NEGATIVE); PROTEIN,URINE NEGATIVE (NEGATIVE)
[2018-03-01 20:42] LABS: URINE AMPHETAMINES SCREEN NEGATIVE; URINE BARBITURATES SCREEN NEGATIVE; URINE BENZODIAZEPINES SCREEN NEGATIVE; URINE COCAINE SCREEN NEGATIVE; URINE MARIJUANA (THC) SCREEN NEGATIVE; URINE METHADONE SCREEN NEGATIVE; URINE PHENCYCLIDINE SCREEN NEGATIVE
[2018-03-01 20:45] LABS: VENOUS BLOOD BASE EXCESS -2.3 mmol/L; VENOUS BLOOD HCO3 22.1 mmol/L (20-32); VENOUS BLOOD PCO2 36.3 mmHg (35-63); VENOUS BLOOD PH 7.4 (7.30-7.42)
[2018-03-01] MEDS ORDERED: LORAZEPAM INJ 2 MG/1 ML VIAL IV ONE (21:04)
[2018-03-01] MEDS ORDERED: THIAMINE HCL 100 MG, FOLIC ACID 1 MG in NORMAL SALINE 250 ML IV ONE (21:04)
[2018-03-01] MEDS: POTASSI CL 20 MEQ/50 ML RIDER 20 MEQ/50 ML RTUPB IV SCH (21:08)
--- NOTE | 2018-03-01 21:35 | EKG REPORT ---
SEVERITY:- BORDERLINE ECG - SINUS RHYTHM BORDERLINE R WAVE PROGRESSION, ANTERIOR LEADS : Confirmed by: Donaldo Graham 01-Mar-2018 21:34:26
[2018-03-01] MEDS ORDERED: IPRATROPIUM/ALBUTEROL 0.5-2.5 MG/3 ML AMPUL NEB PRN (22:27)
--- NOTE | 2018-03-01 23:08 | PDOC H&P ---
History of Present Illness Admission Date/PCP: 03/01/18 21:21 None Patient complains of: Cough, shortness of breath, chest pain History of Present Illness: MARIA DE JESUS CAMPOS is a 52 year old female with past medical history of COPD with active smoker, hep C, alcohol abuse, bipolar disorder presents to the emergency room with 1 week history of productive cough with yellow-green sputum and shortness of breath as well as right lower pleuritic chest pain. Patient has been lifelong alcoholic drinker. Patient's last alcohol drink was today morning. She usually drinks beer. Patient has history of alcohol withdrawal. Patient reports that she has been having shortness of breath which is progressively getting worse. Patient denies fever or chills patient reports few episode of vomiting which was nonbloody. Patient denies abdominal pain or back pain or melena or rectal bleeding. Patient denies urinary symptoms are focal weakness or numbness. Arrival to emergency room her vitals were stable except blood pressure was initially low which improved with IV fluid. Her oxygen saturation was 99% on room air. Laboratory workup shows a white count of 18,000 with hemoglobin is 8.9 which is around baseline. Her potassium was low. Troponin is negative. Chest x-ray shows left lower lobe pneumonia. Patient was given IV Rocephin and Zithromax. Patient was referred to hospital service for admission. Past Medical History Cardiac Medical History: Reports: None Pulmonary Medical History: Reports: Asthma, Bronchitis, Pneumonia Denies: Tuberculosis Neurological Medical History: Denies: Seizures Psychiatric Medical History: Reports: Alcohol Dependency, Bipolar Disorder, Depression, Post Traumatic Stress Disorder, Other - Alcohol abuse Hematology: Reports: Anemia Infectious Medical History: Reports: Hepatitis C Past Surgical History Past Surgical History: Reports: Tubal Ligation Denies: Appendectomy, Section, Cholecystectomy, Coronary Artery Bypass Graft, Gastric Bypass Surgery, Herniorrhaphy, Hysterectomy, Mastectomy, Pacemaker, Tonsillectomy Social History Information Source: Patient Lives with: Alone Smoking Status: Current Every Day Smoker Frequency of Alcohol Use: Heavy Hx Recreational Drug Use: No Drugs: Marijuana Hx Prescription Drug Abuse: No Family History Family History: COPD Parental Family History Reviewed: No Children Family History Reviewed: No Sibling(s) Family History Reviewed.: No Medication/Allergy Home Medications: Albuterol Sulfate [Proair Hfa Inhalation Aerosol 8.5 gm Mdi] 1 puff IH Q4 PRN Aspirin/Acetaminophen/Caffeine [Good[employer]'s Ex-Str Powder Packet] 1 pkt PO DAILY PRN 03/01/18 Diphenhydramine HCl [Benadryl 25 mg Capsule] 50 mg PO DAILY 03/01/18 Ranitidine HCl [Zantac] 300 mg PO DAILY 03/01/18 Allergies/Adverse Reactions: No Known Allergies Allergy (Verified 03/01/18 18:06) Review of Systems Constitutional: ABSENT: fever(s) Eyes: PRESENT: as per HPI Ears: PRESENT: as per HPI Nose, Mouth, and Throat: PRESENT: as per HPI Cardiovascular: PRESENT: as per HPI, chest pain Respiratory: PRESENT: cough, dyspnea, sputum. ABSENT: hemoptysis Gastrointestinal: PRESENT: as per HPI, vomiting Genitourinary: PRESENT: as per HPI Musculoskeletal: PRESENT: as per HPI Integumentary: PRESENT: as per HPI Psychiatric: PRESENT: as per HPI Endocrine: PRESENT: as per HPI Hematologic/Lymphatic: PRESENT: as per HPI Physical Exam Vital Signs: Temp Pulse Resp BP Pulse Ox 97.5 F 109 H 20 111/67 99 03/01/18 18:21 03/01/18 18:21 03/01/18 20:01 03/01/18 20:01 03/01/18 20:01 Intake & Output 02/28/18 03/01/18 03/02/18 06:59 06:59 06:59 Intake Total 900 Balance 900 General appearance: PRESENT: no acute distress, cooperative, disheveled, thin, well-developed Head exam: PRESENT: atraumatic, normocephalic Eye exam: PRESENT: EOMI, PERRLA. ABSENT: nystagmus Ear exam: ABSENT: bleeding Mouth exam: PRESENT: dry mucosa, neck supple Teeth exam: PRESENT: poor dentation Throat exam: ABSENT: tonsillar exudate, tonsillogmegaly Neck exam: ABSENT: carotid bruit, JVD, lymphadenopathy, thyromegaly Respiratory exam: PRESENT: crackles - Her left lower lung, decreased breath sounds, rhonchi. ABSENT: wheezes Cardiovascular exam: PRESENT: RRR, +S1, +S2. ABSENT: gallop, rubs, systolic murmur Pulses: PRESENT: normal carotid pulses GI/Abdominal exam: PRESENT: normal bowel sounds, soft. ABSENT: organolmegaly, tenderness Rectal exam: PRESENT: deferred Gentrourinary exam: ABSENT: ecchymosis Extremities exam: ABSENT: calf tenderness Musculoskeletal exam: PRESENT: ambulatory Neurological exam: PRESENT: alert, altered, awake, oriented to person, oriented to place, oriented to time, oriented to situation. ABSENT: motor sensory deficit Psychiatric exam: ABSENT: homicidal ideation, suicidal ideation Focused psych exam: ABSENT: delusional Skin exam: ABSENT: rash Results Laboratory Results: Laboratory values reviewed. EKG Comments: Normal sinus rhythm with no significant ST changes. Personally reviewed by me. Impressions: Acute Abdomen Series 03/01/18 18:35 IMPRESSION: Left lower lobe pneumonia. Nonspecific abdomen. Status: Image reviewed by me Assessment & Plan - Diagnosis (1) Community acquired pneumonia Qualifiers: Laterality: left Lung location: lower lobe of lung Qualified Code(s): J18.1 - Lobar pneumonia, unspecified organism Is this a current diagnosis for this admission?: Yes Plan: Patient with community-acquired pneumonia. Patient is not hypoxic however she was hypotensive on arrival which improved with IV fluid. We will obtain lactic acid. We will continue broad-spectrum antibiotic. We will obtain sputum culture. Continue as needed breathing treatment and oxygen. (2) Alcohol abuse Is this a current diagnosis for this admission?: No Plan: Patient with heavy alcohol abuse and history of withdrawal. We will watch for withdrawal signs. Will order Ativan as needed along with folic acid and thiamine daily. (3) Hypokalemia Is this a current diagnosis for this admission?: Yes Plan: Will replace potassium and recheck BMP in a.m. (4) COPD (chronic obstructive pulmonary disease) Qualifiers: COPD type: unspecified COPD Qualified Code(s): J44.9 - Chronic obstructive pulmonary disease, unspecified Is this a current diagnosis for this admission?: No Plan: No signs of exacerbation. Continue as needed neb treatment. (5) Tobacco abuse Is this a current diagnosis for this admission?: No Plan: Smoking cessation discussed with the patient. Nicotine patch offered. - Time Time Spent: 50 to 70 Minutes Smoking Cessation Education: 3 to 10 minutes - Inpatient Certification Based on my medical assessment, after consideration of the patient's comorbidities, presenting symptoms, or acuity I expect that the services needed warrant INPATIENT care.: Yes I certify that my determination is in accordance with my understanding of Medicare's requirements for reasonable and necessary INPATIENT services [42 CFR 412.3e].: Yes Medical Necessity: Need For IV Fluids, Need For Continuous Telemetry Monitoring , Need for Neurological Checks, Need for IV Antibiotics - Plan Summary Plan Summary: Inpatient level 3.
[2018-03-02] MEDS: POTASSI CL 20 MEQ/50 ML RIDER 20 MEQ/50 ML RTUPB IV SCH (00:34)
[2018-03-02] MEDS: NORMAL SALINE 1000 ML 1,000 ML IV PRN ×2 (00:34→15:25)
[2018-03-02] MEDS: LORAZEPAM 1 MG TABLET PO PRN ×2 (00:48→06:32)
[2018-03-02 06:13] LABS: HEMATOCRIT 27.3 % (36.0-47.0); HEMOGLOBIN 9.2 g/dL (12.0-15.5); MEAN CORPUSCULAR HEMOGLOBIN 34.7 pg (27.0-33.4); MEAN CORPUSCULAR HGB CONC 33.6 g/dL (32.0-36.0); MEAN CORPUSCULAR VOLUME 104 fl (80-97); PLATELET COUNT 310 10^3/uL (150-450); RED BLOOD COUNT 2.64 10^6/uL (3.72-5.28); RED CELL DISTRIBUTION WIDTH 16.5 % (11.5-14.0); WHITE BLOOD COUNT 13.2 10^3/uL (4.0-10.5)
[2018-03-02 06:31] LABS: ABSOLUTE LYMPHOCYTES# (MANUAL) 0.5 10^3/uL (0.5-4.7); ABSOLUTE NEUTROPHILS# (MANUAL) 12.7 10^3/uL (1.7-8.2); BAND NEUTROPHILS % (MANUAL) 1 % (3-5); BASOPHILS % (MANUAL) 0 % (0-2); EOSINOPHILS % (MANUAL) 0 % (0-6); LYMPHOCYTES % (MANUAL) 4 % (13-45); MONOCYTES % (MANUAL) 0 % (3-13); SEGMENTED NEUTROPHILS % (MAN) 95 % (42-78); TOTAL CELLS COUNTED 100
[2018-03-02 06:32] LABS: HYPOCHROMASIA 1+; POLYCHROMASIA SLIGHT
[2018-03-02 06:33] LABS: ANISOCYTOSIS 1+; PLATELET COMMENT ADEQUATE
[2018-03-02 06:39] LABS: ALANINE AMINOTRANSFERASE 23 U/L (9-52); ALBUMIN 2.7 g/dL (3.5-5.0); ALKALINE PHOSPHATASE 113 U/L (38-126); ANION GAP 13 (5-19); ASPARTATE AMINO TRANSFERASE 22 U/L (14-36); BILIRUBIN,DIRECT 0.4 mg/dL (0.0-0.4); BILIRUBIN,TOTAL 0.4 mg/dL (0.2-1.3); BLOOD UREA NITROGEN 9 mg/dL (7-20); CALCIUM 7.9 mg/dL (8.4-10.2); CARBON DIOXIDE 21 mmol/L (22-30); CHLORIDE 101 mmol/L (98-107); GLUCOSE 108 mg/dL (75-110); SODIUM 135.3 mmol/L (137-145); TOTAL PROTEIN 6.2 g/dL (6.3-8.2)
[2018-03-02 07:34] LABS: POTASSIUM 4.5 mmol/L (3.6-5.0)
[2018-03-02] MEDS: IPRATROPIUM/ALBUTEROL 0.5-2.5 MG/3 ML AMPUL NEB SCH ×4 (08:42→20:37)
--- NOTE | 2018-03-02 09:33 | RADIOLOGY REPORT (SQ) ---
EXAM DESCRIPTION: CHEST SINGLE VIEW COMPLETED DATE/TIME: 03/02/2018 9:19 am REASON FOR STUDY: aspiration COMPARISON: 03/01/2018. EXAM PARAMETERS: NUMBER OF VIEWS: One view. TECHNIQUE: Single frontal radiographic view of the chest acquired. RADIATION DOSE: NA LIMITATIONS: None. FINDINGS: LUNGS AND PLEURA: Left lower lobe infiltrate unchanged. Right lung clear. No large pleur al effusion. No pneumothorax. MEDIASTINUM AND HILAR STRUCTURES: No masses. Contour normal. HEART AND VASCULAR STRUCTURES: Heart normal in size. Normal vasculature. BONES: No acute findings. HARDWARE: None in the chest. OTHER: No other significant finding. IMPRESSION: LEFT LOWER LOBE INFILTRATE, UNCHANGED. TECHNICAL DOCUMENTATION: JOB ID: [id number] [employer]- All Rights Reserved Reading location - IP/workstation name: [email or web address]
[2018-03-02] MEDS: LORAZEPAM INJ 2 MG/1 ML VIAL IV PRN ×4 (09:37→23:30)
[2018-03-02] MEDS: PANTOPRAZOLE SODIUM 40 MG VIAL IV SCH ×2 (09:37→21:18)
[2018-03-02] MEDS: LEVOFLOXACIN 750 MG/D5W RTU 750 MG/150 ML RTUPB IV SCH (09:38)
[2018-03-02] MEDS: FENTANYL 25 MCG/HR PATCH.TD72 TD SCH (09:38)
[2018-03-02] MEDS: ENOXAPARIN SODIUM INJ 40 MG/0.4 ML DISP.SYRIN SUBCUT SCH (09:39)
[2018-03-02] MEDS: DIAZEPAM 5 MG TABLET PO PRN ×2 (11:15→18:43)
[2018-03-02] MEDS: THIAMINE HCL 100 MG TABLET PO SCH (11:15)
[2018-03-02] MEDS ORDERED: VANCOMYCIN HCL 0 MG in DEXTROSE 5%-WATER 250 ML IV NR (11:15)
[2018-03-02] MEDS: FAMOTIDINE 20 MG TABLET PO SCH ×2 (11:16→21:18)
[2018-03-02] MEDS: GUAIFENESIN 600 MG TABLET.SA PO SCH ×2 (11:16→21:18)
[2018-03-02] MEDS: FOLIC ACID 1 MG TABLET PO SCH (11:17)
--- NOTE | 2018-03-02 11:28 | PDOC PROGRESS REPORT ---
Subjective Subjective:: MARIA DE JESUS CAMPOS is a 52 year old female with past medical history of bipolar disorder, tobacco dependence, COPD, hepatitis C and alcohol abuse presented with chief complaint of cough, shortness of breath and chest pain. Patient has been started on ceftriaxone and Zithromax by the admitting physician. Since patient has history of sputum positive for MRSA during her previous admission and currently also patient is gives history of cough with yellow-green sputum I will switch his antibiotics to Levaquin and vancomycin. This morning I seen patient sitting up in chair she is tachypneic in mild and mild to moderate respiratory distress. On the auscultation of the chest she has bronchial breath sounds at the left lung base. I started her also on Ativan 2 mg IV every 2 hours as needed and diazepam 20 mg p.o. every 6 hours scheduled. Reason For Visit: PNEUMONIA, ETOH WITHDRAWAL Physical Exam Vital Signs: Temp Pulse Resp BP Pulse Ox 98.7 F 122 H 24 H 93/59 L 97 03/02/18 08:18 03/02/18 08:40 03/02/18 08:40 03/02/18 08:18 03/02/18 08:40 Intake & Output 03/01/18 03/02/18 03/03/18 06:59 06:59 06:59 Intake Total 1601.2 Balance 1601.2 Weight 57.1 kg General appearance: PRESENT: thin, other - Mild to moderate respiratory distress Eye exam: PRESENT: conjunctiva pink Mouth exam: PRESENT: dry mucosa Neck exam: ABSENT: carotid bruit, JVD, lymphadenopathy, thyromegaly Respiratory exam: PRESENT: tachypnea, other - Bronchial breath sound at the left lung base Cardiovascular exam: PRESENT: tachycardia GI/Abdominal exam: PRESENT: normal bowel sounds, soft. ABSENT: distended, guarding, mass, organolmegaly, rebound, tenderness Extremities exam: PRESENT: full ROM. ABSENT: calf tenderness, clubbing, pedal edema Neurological exam: PRESENT: alert, oriented to time, oriented to situation Psychiatric exam: PRESENT: depressed Results Laboratory Results: 03/02/18 05:09 03/02/18 05:09 03/01/18 03/02/18 03/02/18 23:15 05:09 05:09 WBC 13.2 H RBC 2.64 L Hgb 9.2 L Hct 27.3 L MCV 104 H MCH 34.7 H MCHC 33.6 RDW 16.5 H Plt Count 310 Seg Neutrophils % Not Reportable Lymphocytes % Not Reportable Monocytes % Not Reportable Eosinophils % Not Reportable Basophils % Not Reportable Absolute Neutrophils Not Reportable Absolute Lymphocytes Not Reportable Absolute Monocytes Not Reportable Absolute Eosinophils Not Reportable Absolute Basophils Not Reportable Sodium 135.3 L Potassium 4.5 D Chloride 101 Carbon Dioxide 21 L Anion Gap 13 BUN 9 Creatinine 0.50 L Est GFR ( Amer) > 60 Est GFR (Non-Af Amer) > 60 Glucose 108 Lactic Acid 2.0 Calcium 7.9 L Total Bilirubin 0.4 AST 22 ALT 23 Alkaline Phosphatase 113 Total Protein 6.2 L Albumin 2.7 L Impressions: Acute Abdomen Series 03/01/18 18:35 IMPRESSION: Left lower lobe pneumonia. Nonspecific abdomen. Chest X-Ray 03/02/18 00:00 IMPRESSION: LEFT LOWER LOBE INFILTRATE, UNCHANGED. Assessment & Plan - Diagnosis (1) Sepsis Qualifiers: Sepsis type: sepsis due to unspecified organism Qualified Code(s): A41.9 - Sepsis, unspecified organism Is this a current diagnosis for this admission?: Yes Plan: Sepsis of pulmonary origin. Sepsis evidenced by that patient has tachypnea, tachycardia, hypotension, leukocytosis and pneumonia. Gentle hydration and continue IV antibiotics which includes Levaquin and vancomycin. (2) Left lower lobe pneumonia Is this a current diagnosis for this admission?: Yes Plan: As a #1 (3) COPD (chronic obstructive pulmonary disease) Qualifiers: Emphysema type: unspecified Is this a current diagnosis for this admission?: Yes Plan: Supplemental oxygen and bronchodilators (4) Hypokalemia Is this a current diagnosis for this admission?: Yes Plan: Replete (5) Alcohol dependence Is this a current diagnosis for this admission?: Yes Plan: Patient is under withdrawal protocol. (6) Tobacco dependence Is this a current diagnosis for this admission?: Yes Plan: Nicotine patch. Patient also advised to quit smoking. (7) Bipolar disorder Is this a current diagnosis for this admission?: Yes Plan: Continue home medications
[2018-03-02] MEDS: VANCOMYCIN HCL 1,250 MG in DEXTROSE 5%-WATER 250 ML IV SCH (15:20)
[2018-03-02] MEDS ORDERED: CEFTRIAXONE 1 GM/D5W RTU 1 GM/50 ML RTUPB IV SCH (18:00)
[2018-03-02] MEDS ORDERED: CEFTRIAXONE SODIUM 1,000 MG in DEXTROSE 5%-WATER 50 ML IV SCH (18:00)
[2018-03-02] MEDS ORDERED: AZITHROMYCIN 500 MG in DEXTROSE 5%-WATER 250 ML IV SCH (18:00)
[2018-03-02] MEDS ORDERED: HALOPERIDOL LACTATE INJ 5 MG/1 ML VIAL IV ONE (18:24)
[2018-03-02] MEDS: HALOPERIDOL LACTATE INJ 5 MG/1 ML VIAL IV PRN (22:50)
[2018-03-03] MEDS: DIAZEPAM 5 MG TABLET PO PRN (00:18)
[2018-03-03] MEDS ORDERED: LORAZEPAM INJ 2 MG/1 ML VIAL ONE (01:07)
[2018-03-03] MEDS: HALOPERIDOL LACTATE INJ 5 MG/1 ML VIAL IV PRN ×2 (01:10→20:03)
[2018-03-03] MEDS ORDERED: LORAZEPAM INJ 2 MG/1 ML VIAL IV ONE (01:15)
[2018-03-03] MEDS: LORAZEPAM INJ 2 MG/1 ML VIAL IV PRN ×5 (02:36→22:31)
[2018-03-03] MEDS: VANCOMYCIN HCL 1,250 MG in DEXTROSE 5%-WATER 250 ML IV SCH ×2 (03:12→14:27)
[2018-03-03] MEDS: NORMAL SALINE 1000 ML 1,000 ML IV PRN ×2 (05:25→10:11)
[2018-03-03 08:14] LABS: ABSOLUTE LYMPHOCYTES (AUTO) 0.9 10^3/uL (0.5-4.7); ABSOLUTE MONOCYTES (AUTO) 1.3 10^3/uL (0.1-1.4); ABSOLUTE NEUT (AUTO) 10.2 10^3/uL (1.7-8.2); ALANINE AMINOTRANSFERASE 21 U/L (9-52); ALBUMIN 2.2 g/dL (3.5-5.0); ALKALINE PHOSPHATASE 73 U/L (38-126); ANION GAP 6 (5-19); ASPARTATE AMINO TRANSFERASE 28 U/L (14-36); BASOPHILS % (AUTO) 0.2 % (0-2); BILIRUBIN,DIRECT 0.2 mg/dL (0.0-0.4); BILIRUBIN,TOTAL 0.2 mg/dL (0.2-1.3); BLOOD UREA NITROGEN 9 mg/dL (7-20); CALCIUM 7.8 mg/dL (8.4-10.2); CARBON DIOXIDE 25 mmol/L (22-30); CHLORIDE 106 mmol/L (98-107); GLUCOSE 92 mg/dL (75-110); HEMATOCRIT 20.3 % (36.0-47.0); LYMPHOCYTES % (AUTO) 7.5 % (13-45); MEAN CORPUSCULAR HEMOGLOBIN 35.5 pg (27.0-33.4); MEAN CORPUSCULAR HGB CONC 33.9 g/dL (32.0-36.0); MEAN CORPUSCULAR VOLUME 105 fl (80-97); MONOCYTES % (AUTO) 10.2 % (3-13); PLATELET COUNT 284 10^3/uL (150-450); POTASSIUM 4.1 mmol/L (3.6-5.0); RED BLOOD COUNT 1.93 10^6/uL (3.72-5.28); RED CELL DISTRIBUTION WIDTH 15.8 % (11.5-14.0); SEGMENTED NEUTROPHILS % (AUTO) 82.1 % (42-78); SODIUM 136.6 mmol/L (137-145); TOTAL CELLS COUNTED % (AUTO) 100 %; TOTAL PROTEIN 5.1 g/dL (6.3-8.2); WHITE BLOOD COUNT 12.5 10^3/uL (4.0-10.5)
[2018-03-03 08:25] LABS: HEMOGLOBIN 6.9 g/dL (12.0-15.5)
[2018-03-03] MEDS: IPRATROPIUM/ALBUTEROL 0.5-2.5 MG/3 ML AMPUL NEB SCH ×4 (08:48→19:48)
[2018-03-03] MEDS ORDERED: NORMAL SALINE 250 ML IV PRN ×2 (09:31)
[2018-03-03] MEDS: ENOXAPARIN SODIUM INJ 40 MG/0.4 ML DISP.SYRIN SUBCUT SCH (10:10)
[2018-03-03] MEDS: PANTOPRAZOLE SODIUM 40 MG VIAL IV SCH ×2 (10:10→22:31)
[2018-03-03] MEDS: LEVOFLOXACIN 750 MG/D5W RTU 750 MG/150 ML RTUPB IV SCH (10:11)
[2018-03-03] MEDS: THIAMINE HCL 100 MG TABLET PO SCH (10:16)
[2018-03-03] MEDS: FAMOTIDINE 20 MG TABLET PO SCH (10:16)
[2018-03-03] MEDS: GUAIFENESIN 600 MG TABLET.SA PO SCH (10:17)
[2018-03-03] MEDS: FOLIC ACID 1 MG TABLET PO SCH (10:17)
--- NOTE | 2018-03-03 12:37 | PDOC PROGRESS REPORT ---
Subjective Progress Note for:: 03/03/18 Subjective:: Patient has been sleeping quietly. Reportedly patient has an episode of agitation and restlessness yesterday night and she is under four-point soft restraints. Her blood work shows that her hypokalemia has resolved today her potassium is 4.1 and her leukocytosis trending down from 17.9-13.2. She has also dropping her hemoglobin from 8-6.9 and vitamin D dilutional. Anyway have to transfuse her 1 unit of blood Reason For Visit: PNEUMONIA, ETOH WITHDRAWAL Physical Exam Vital Signs: Temp Pulse Resp BP Pulse Ox 98.1 F 105 H 18 122/74 96 03/03/18 08:10 03/03/18 08:48 03/03/18 08:48 03/03/18 08:10 03/03/18 08:48 Intake & Output 03/02/18 03/03/18 03/04/18 06:59 06:59 06:59 Intake Total 1601.2 3277 508 Balance 1601.2 3277 508 Weight 57.1 kg 58.9 kg General appearance: PRESENT: no acute distress Eye exam: PRESENT: conjunctiva pink Mouth exam: PRESENT: dry mucosa Respiratory exam: PRESENT: clear to auscultation billy. ABSENT: rales, rhonchi, wheezes Cardiovascular exam: PRESENT: RRR. ABSENT: diastolic murmur, rubs, systolic murmur GI/Abdominal exam: PRESENT: normal bowel sounds, soft. ABSENT: distended, guarding, mass, organolmegaly, rebound, tenderness Neurological exam: PRESENT: other - Patient has been sleeping Results Laboratory Results: 03/03/18 07:42 03/03/18 07:42 03/03/18 03/03/18 03/03/18 07:42 07:42 10:30 WBC 12.5 H RBC 1.93 L Hgb 6.9 L D Hct 20.3 L MCV 105 H MCH 35.5 H MCHC 33.9 RDW 15.8 H Plt Count 284 Seg Neutrophils % 82.1 H Lymphocytes % 7.5 L Monocytes % 10.2 Eosinophils % 0.0 Basophils % 0.2 Absolute Neutrophils 10.2 H Absolute Lymphocytes 0.9 Absolute Monocytes 1.3 Absolute Eosinophils 0.0 Absolute Basophils 0.0 Sodium 136.6 L Potassium 4.1 Chloride 106 Carbon Dioxide 25 Anion Gap 6 BUN 9 Creatinine 0.50 L Est GFR ( Amer) > 60 Est GFR (Non-Af Amer) > 60 Glucose 92 Calcium 7.8 L Total Bilirubin 0.2 AST 28 ALT 21 Alkaline Phosphatase 73 Total Protein 5.1 L Albumin 2.2 L Blood Type O POSITIVE Antibody Screen NEGATIVE Impressions: Acute Abdomen Series 03/01/18 18:35 IMPRESSION: Left lower lobe pneumonia. Nonspecific abdomen. Chest X-Ray 03/02/18 00:00 IMPRESSION: LEFT LOWER LOBE INFILTRATE, UNCHANGED. Assessment & Plan - Diagnosis (1) Sepsis Qualifiers: Sepsis type: sepsis due to unspecified organism Qualified Code(s): A41.9 - Sepsis, unspecified organism Is this a current diagnosis for this admission?: Yes Plan: Improving (2) Left lower lobe pneumonia Is this a current diagnosis for this admission?: Yes Plan: Continue current antibiotics. Sputum culture was ordered but not collected. (3) COPD (chronic obstructive pulmonary disease) Qualifiers: Emphysema type: unspecified Is this a current diagnosis for this admission?: Yes Plan: Supplemental oxygen and bronchodilators (4) Hypokalemia Is this a current diagnosis for this admission?: Yes Plan: Has resolved (5) Alcohol dependence Is this a current diagnosis for this admission?: Yes Plan: Patient is under withdrawal protocol. (6) Tobacco dependence Is this a current diagnosis for this admission?: Yes Plan: Nicotine patch. Patient also advised to quit smoking. (7) Bipolar disorder Is this a current diagnosis for this admission?: Yes Plan: Continue home medications
[2018-03-03 18:05] LABS: ABSOLUTE BASOPHILS # (AUTO) 0.1 10^3/uL (0.0-0.2); ABSOLUTE MONOCYTES (AUTO) 1.1 10^3/uL (0.1-1.4); ABSOLUTE NEUT (AUTO) 7.3 10^3/uL (1.7-8.2); BASOPHILS % (AUTO) 0.7 % (0-2); EOSINOPHILS % (AUTO) 0.1 % (0-6); HEMATOCRIT 26.2 % (36.0-47.0); LYMPHOCYTES % (AUTO) 10.4 % (13-45); MEAN CORPUSCULAR HEMOGLOBIN 34.5 pg (27.0-33.4); MEAN CORPUSCULAR HGB CONC 34.4 g/dL (32.0-36.0); PLATELET COUNT 280 10^3/uL (150-450); RED BLOOD COUNT 2.61 10^6/uL (3.72-5.28); RED CELL DISTRIBUTION WIDTH 17.8 % (11.5-14.0); SEGMENTED NEUTROPHILS % (AUTO) 76.8 % (42-78); TOTAL CELLS COUNTED % (AUTO) 100 %; WHITE BLOOD COUNT 9.5 10^3/uL (4.0-10.5)
[2018-03-03 18:07] LABS: MEAN CORPUSCULAR VOLUME 100 fl (80-97)
[2018-03-04] MEDS: GUAIFENESIN 600 MG TABLET.SA PO SCH ×3 (00:32→21:10)
[2018-03-04] MEDS: FAMOTIDINE 20 MG TABLET PO SCH ×3 (00:32→21:10)
[2018-03-04] MEDS: LORAZEPAM INJ 2 MG/1 ML VIAL IV PRN ×4 (01:54→23:35)
[2018-03-04] MEDS: VANCOMYCIN HCL 1,250 MG in DEXTROSE 5%-WATER 250 ML IV SCH ×2 (01:55→13:45)
[2018-03-04] MEDS: HALOPERIDOL LACTATE INJ 5 MG/1 ML VIAL IV PRN ×2 (05:46→20:49)
[2018-03-04] MEDS: IPRATROPIUM/ALBUTEROL 0.5-2.5 MG/3 ML AMPUL NEB SCH ×4 (08:02→19:49)
[2018-03-04] MEDS: LEVOFLOXACIN 750 MG/D5W RTU 750 MG/150 ML RTUPB IV SCH (10:07)
[2018-03-04] MEDS: PANTOPRAZOLE SODIUM 40 MG VIAL IV SCH ×2 (10:11→21:43)
[2018-03-04] MEDS: FOLIC ACID 1 MG TABLET PO SCH (10:11)
[2018-03-04] MEDS: THIAMINE HCL 100 MG TABLET PO SCH (10:11)
[2018-03-04] MEDS: ENOXAPARIN SODIUM INJ 40 MG/0.4 ML DISP.SYRIN SUBCUT SCH (10:12)
--- NOTE | 2018-03-04 11:13 | RADIOLOGY REPORT (SQ) ---
EXAM DESCRIPTION: CHEST SINGLE VIEW COMPLETED DATE/TIME: 03/04/2018 10:49 am REASON FOR STUDY: pna COMPARISON: 03/02/2018 EXAM PARAMETERS: NUMBER OF VIEWS: One view. TECHNIQUE: Single frontal radiographic view of the chest acquired. RADIATION DOSE: NA LIMITATIONS: None. FINDINGS: LUNGS AND PLEURA: There has been interval progression in the previously described left low er lobe infiltrate with increasing airspace consolidation and a small associated left pleural effusio n. The right lung remains clear. MEDIASTINUM AND HILAR STRUCTURES: No masses. Contour normal. HEART AND VASCULAR STRUCTURES: The configuration of the heart mediastinal structures is unchanged. BONES: No acute findings. HARDWARE: None in the chest. OTHER: No other significant finding. IMPRESSION: Interval progression in the previously described left lower lobe infiltrate as noted abo ve and a small associated left pleural effusion is identified on the current study. TECHNICAL DOCUMENTATION: JOB ID: [id number] [employer]- All Rights Reserved Reading location - IP/workstation name: [email or web address]
--- NOTE | 2018-03-04 13:05 | PDOC PROGRESS REPORT ---
Subjective Progress Note for:: 03/04/18 Subjective:: ARNIE CAMPOS is a 52 year old female with past medical history of bipolar disorder, tobacco dependence, COPD, hepatitis C and alcohol abuse presented with chief complaint of cough, shortness of breath and chest pain. Patient has been started on ceftriaxone and Zithromax by the admitting physician. Since patient has history of sputum positive for MRSA during her previous admission and currently also patient is gives history of cough with yellow-green sputum I switched her antibiotics to Levaquin and vancomycin but the chest x-ray taken this morning reported as progression of the left lower lobe consolidation so in light of these I will DC the Levaquin and switched to Zosyn. Patient transfused 1 unit of packed RBC since her hemoglobin dropped 6.8 her posttransfusion hemoglobin is 9. Stool for occult blood is pending. I seen patient resting comfortably she is less agitated and more cooperative. Reason For Visit: PNEUMONIA, ETOH WITHDRAWAL Physical Exam Vital Signs: Temp Pulse Resp BP Pulse Ox 99.2 F 117 H 17 145/86 H 98 03/04/18 12:01 03/04/18 12:01 03/04/18 12:01 03/04/18 12:01 03/04/18 12:01 Intake & Output 03/03/18 03/04/18 03/05/18 06:59 06:59 06:59 Intake Total 3277 2561 0 Output Total 500 Balance 3277 2061 0 Weight 58.9 kg 58.4 kg General appearance: PRESENT: no acute distress Head exam: PRESENT: atraumatic Eye exam: PRESENT: conjunctiva pink Mouth exam: PRESENT: moist Neck exam: ABSENT: carotid bruit, JVD, lymphadenopathy, thyromegaly Respiratory exam: PRESENT: clear to auscultation billy. ABSENT: rales, rhonchi, wheezes Cardiovascular exam: PRESENT: RRR. ABSENT: diastolic murmur, rubs, systolic murmur GI/Abdominal exam: PRESENT: normal bowel sounds, soft. ABSENT: distended, guarding, mass, organolmegaly, rebound, tenderness Extremities exam: PRESENT: full ROM. ABSENT: calf tenderness, clubbing, pedal edema Neurological exam: PRESENT: alert, awake Psychiatric exam: PRESENT: normal mood Results Laboratory Results: 03/03/18 17:38 03/03/18 07:42 03/03/18 17:38 WBC 9.5 RBC 2.61 L Hgb 9.0 L D Hct 26.2 L MCV 100 H D MCH 34.5 H MCHC 34.4 RDW 17.8 H Plt Count 280 Seg Neutrophils % 76.8 Lymphocytes % 10.4 L Monocytes % 12.0 Eosinophils % 0.1 Basophils % 0.7 Absolute Neutrophils 7.3 Absolute Lymphocytes 1.0 Absolute Monocytes 1.1 Absolute Eosinophils 0.0 Absolute Basophils 0.1 Impressions: Acute Abdomen Series 03/01/18 18:35 IMPRESSION: Left lower lobe pneumonia. Nonspecific abdomen. Chest X-Ray 03/04/18 00:00 IMPRESSION: Interval progression in the previously described left lower lobe infiltrate as noted above and a small associated left pleural effusion is identified on the current study. Assessment & Plan - Diagnosis (1) Sepsis Qualifiers: Sepsis type: sepsis due to unspecified organism Qualified Code(s): A41.9 - Sepsis, unspecified organism Is this a current diagnosis for this admission?: Yes Plan: Patient has been on Zosyn and vancomycin (2) Left lower lobe pneumonia Is this a current diagnosis for this admission?: Yes Plan: Continue Zosyn and vancomycin. (3) COPD (chronic obstructive pulmonary disease) Qualifiers: Emphysema type: unspecified Is this a current diagnosis for this admission?: Yes Plan: Supplemental oxygen and bronchodilators (4) Hypokalemia Is this a current diagnosis for this admission?: Yes Plan: Has resolved (5) Alcohol dependence Is this a current diagnosis for this admission?: Yes Plan: Patient is under withdrawal protocol. (6) Tobacco dependence Is this a current diagnosis for this admission?: Yes Plan: Nicotine patch. Patient also advised to quit smoking. (7) Bipolar disorder Is this a current diagnosis for this admission?: Yes Plan: Continue home medications
[2018-03-04 14:47] LABS: VANCOMYCIN,TROUGH 11.4 ug/mL (5.0-20.0)
[2018-03-04] MEDS: PIPERACILLIN SODIUM/TAZOBACTAM 3.375 GM in NORMAL SALINE 100 ML IV SCH (18:23)
[2018-03-04] MEDS: VANCOMYCIN HCL 1,500 MG in DEXTROSE 5%-WATER 250 ML IV SCH (21:43)
[2018-03-04] MEDS: NORMAL SALINE 1000 ML 1,000 ML IV PRN (21:43)
[2018-03-05] MEDS: PIPERACILLIN SODIUM/TAZOBACTAM 3.375 GM in NORMAL SALINE 100 ML IV SCH ×5 (00:41→23:40)
[2018-03-05] MEDS: LORAZEPAM INJ 2 MG/1 ML VIAL IV PRN ×4 (04:04→20:33)
[2018-03-05] MEDS: NORMAL SALINE 1000 ML 1,000 ML IV PRN ×2 (05:33→12:49)
[2018-03-05 06:24] LABS: ABSOLUTE BASOPHILS # (AUTO) 0.1 10^3/uL (0.0-0.2); ABSOLUTE LYMPHOCYTES (AUTO) 0.9 10^3/uL (0.5-4.7); ABSOLUTE MONOCYTES (AUTO) 2.2 10^3/uL (0.1-1.4); ABSOLUTE NEUT (AUTO) 10.2 10^3/uL (1.7-8.2); BASOPHILS % (AUTO) 0.5 % (0-2); EOSINOPHILS % (AUTO) 0.2 % (0-6); HEMATOCRIT 24.8 % (36.0-47.0); HEMOGLOBIN 8.3 g/dL (12.0-15.5); LYMPHOCYTES % (AUTO) 6.6 % (13-45); MEAN CORPUSCULAR HEMOGLOBIN 33.3 pg (27.0-33.4); MEAN CORPUSCULAR HGB CONC 33.7 g/dL (32.0-36.0); MEAN CORPUSCULAR VOLUME 99 fl (80-97); MONOCYTES % (AUTO) 16.3 % (3-13); PLATELET COUNT 288 10^3/uL (150-450); RED BLOOD COUNT 2.51 10^6/uL (3.72-5.28); RED CELL DISTRIBUTION WIDTH 17.5 % (11.5-14.0); SEGMENTED NEUTROPHILS % (AUTO) 76.4 % (42-78); TOTAL CELLS COUNTED % (AUTO) 100 %; WHITE BLOOD COUNT 13.4 10^3/uL (4.0-10.5)
[2018-03-05 06:43] LABS: ANION GAP 10 (5-19); BLOOD UREA NITROGEN 3 mg/dL (7-20); CALCIUM 7.2 mg/dL (8.4-10.2); CARBON DIOXIDE 26 mmol/L (22-30); CHLORIDE 97 mmol/L (98-107); GLUCOSE 90 mg/dL (75-110); SODIUM 133.4 mmol/L (137-145)
[2018-03-05 06:48] LABS: POTASSIUM 2.5 mmol/L (3.6-5.0)
[2018-03-05] MEDS ORDERED: POTASSIUM CHLORIDE 10 MEQ CAPSULE.ER PO ONE (08:00)
[2018-03-05] MEDS: IPRATROPIUM/ALBUTEROL 0.5-2.5 MG/3 ML AMPUL NEB SCH ×3 (08:45→19:44)
[2018-03-05] MEDS: POTASSI CL 20 MEQ/50 ML RIDER 20 MEQ/50 ML RTUPB IV SCH ×2 (09:20→11:19)
[2018-03-05] MEDS: VANCOMYCIN HCL 1,500 MG in DEXTROSE 5%-WATER 250 ML IV SCH ×2 (09:46→21:56)
[2018-03-05] MEDS: ENOXAPARIN SODIUM INJ 40 MG/0.4 ML DISP.SYRIN SUBCUT SCH (09:48)
[2018-03-05] MEDS: FENTANYL 25 MCG/HR PATCH.TD72 TD SCH (09:49)
[2018-03-05] MEDS: FOLIC ACID 1 MG TABLET PO SCH ×2 (09:57→11:19)
[2018-03-05] MEDS: FAMOTIDINE 20 MG TABLET PO SCH ×2 (09:57→11:19)
[2018-03-05] MEDS: GUAIFENESIN 600 MG TABLET.SA PO SCH ×3 (09:57→21:56)
[2018-03-05] MEDS: THIAMINE HCL 100 MG TABLET PO SCH ×2 (09:58→11:19)
[2018-03-05] MEDS: POTASSIUM CHLORIDE 20 MEQ/50 ML RTU IV SCH ×2 (14:05→16:28)
[2018-03-05] MEDS ORDERED: DEXTROSE 50%-WATER 25 GM/50 ML DISP.SYRIN IV PRN ×2 (14:25)
[2018-03-05] MEDS ORDERED: GLUCAGON,HUMAN RECOMB 1 MG INJ SUBCUT PRN (14:25)
[2018-03-05] MEDS ORDERED: DEXTROSE 40% GEL 15 GM TUBE PO PRN ×2 (14:25)
--- NOTE | 2018-03-05 14:51 | PDOC PROGRESS REPORT ---
Subjective Progress Note for:: 03/05/18 - seen on rounds this morning Subjective:: states she's fine. she answers my questions but very lethargic- still very confused and not sure of time and place. Reason For Visit: PNEUMONIA, ETOH WITHDRAWAL Physical Exam Vital Signs: Temp Pulse Resp BP Pulse Ox 97.9 F 101 H 16 118/65 96 03/05/18 11:38 03/05/18 13:01 03/05/18 13:01 03/05/18 11:38 03/05/18 13:01 Intake & Output 03/04/18 03/05/18 03/06/18 06:59 06:59 06:59 Intake Total 2561 870 1500 Output Total 500 Balance 2061 870 1500 Weight 128 lb 11.999 oz 125 lb 10.616 oz General appearance: PRESENT: no acute distress, other - very lethargic, slow mentation- slow respond Head exam: PRESENT: atraumatic, normocephalic Eye exam: PRESENT: PERRLA. ABSENT: conjunctival injection Ear exam: PRESENT: normal external ear exam Mouth exam: PRESENT: dry mucosa. ABSENT: tongue midline Neck exam: ABSENT: tracheal deviation Respiratory exam: PRESENT: decreased breath sounds - decreaesd breath sounds at the bases, symmetrical. ABSENT: crackles, rhonchi, wheezes Cardiovascular exam: PRESENT: +S1, +S2 Pulses: PRESENT: +2 pedal pulses bilateral GI/Abdominal exam: PRESENT: normal bowel sounds, soft, tenderness - lower abdomen TTP but difficult to assess since patient is encephalopathic Extremities exam: ABSENT: +2 edema Musculoskeletal exam: ABSENT: tenderness Neurological exam: PRESENT: CN II-XII grossly intact - lethargic. slow mentation. AAOx1. knows her name. cannot perform full CN due to lethargy and mental status change Skin exam: PRESENT: dry, warm Results Laboratory Results: 03/05/18 06:08 03/05/18 06:08 03/05/18 03/05/18 06:08 06:08 WBC 13.4 H RBC 2.51 L Hgb 8.3 L Hct 24.8 L MCV 99 H MCH 33.3 MCHC 33.7 RDW 17.5 H Plt Count 288 Seg Neutrophils % 76.4 Lymphocytes % 6.6 L Monocytes % 16.3 H Eosinophils % 0.2 Basophils % 0.5 Absolute Neutrophils 10.2 H Absolute Lymphocytes 0.9 Absolute Monocytes 2.2 H Absolute Eosinophils 0.0 Absolute Basophils 0.1 Sodium 133.4 L Potassium 2.5 L* Chloride 97 L Carbon Dioxide 26 Anion Gap 10 BUN 3 L Creatinine 0.59 Est GFR ( Amer) > 60 Est GFR (Non-Af Amer) > 60 Glucose 90 Calcium 7.2 L Impressions: Acute Abdomen Series 03/01/18 18:35 IMPRESSION: Left lower lobe pneumonia. Nonspecific abdomen. Chest X-Ray 03/04/18 00:00 IMPRESSION: Interval progression in the previously described left lower lobe infiltrate as noted above and a small associated left pleural effusion is identified on the current study. Assessment & Plan - Diagnosis (1) Left lower lobe pneumonia Is this a current diagnosis for this admission?: Yes Plan: seen on CXR- i looked it myself- does look like the left side is worse than before. she was switched to zosyn and continued on Vanco. will continue for now. likely this is aspiration pna given her history of alcohol abuse. vanco and zosyn is likely more appropriate in this setting (2) Aspiration pneumonia Is this a current diagnosis for this admission?: Yes Plan: see plan above (3) Alcohol abuse Is this a current diagnosis for this admission?: Yes Plan: currently she's very lethargic and mentation is slow. i have stopped her fentanyl patch and trying to stay away from all types of sedations. she does have valium and ativan ordered for acute agitation. seizure precautions. i have made her NPO for now until we get a speech and swallow eval. will convert all her meds to IV for now. i have switched all her PO meds to IV- folic acid and thiamine (4) Tobacco dependence Is this a current diagnosis for this admission?: Yes (5) Gastroesophageal reflux disease Qualifiers: Esophagitis presence: without esophagitis Qualified Code(s): K21.9 - Gastro -esophageal reflux disease without esophagitis Is this a current diagnosis for this admission?: Yes Plan: stop pepcid PO- switch to protonix IV (6) Hypokalemia Is this a current diagnosis for this admission?: Yes Plan: electrolyte imbalance likely due to her alcohol history. will continue to replete as needed.
[2018-03-05] MEDS: PANTOPRAZOLE SODIUM 40 MG VIAL IV SCH (16:23)
[2018-03-05] MEDS: POTASSI CL 20 MEQ/NS 1L 1,000 ML IV PRN (18:41)
[2018-03-05 21:30] LABS: ANION GAP 9 (5-19); BLOOD UREA NITROGEN 6 mg/dL (7-20); CALCIUM 7.2 mg/dL (8.4-10.2); CARBON DIOXIDE 25 mmol/L (22-30); CHLORIDE 102 mmol/L (98-107); GLUCOSE 112 mg/dL (75-110); POTASSIUM 3.4 mmol/L (3.6-5.0); SODIUM 135.8 mmol/L (137-145)
[2018-03-05] MEDS: ACETAMINOPHEN 325 MG TABLET PO PRN (23:40)
[2018-03-06] MEDS: LORAZEPAM INJ 2 MG/1 ML VIAL IV PRN ×3 (01:53→19:43)
[2018-03-06] MEDS: PIPERACILLIN SODIUM/TAZOBACTAM 3.375 GM in NORMAL SALINE 100 ML IV SCH (05:04)
[2018-03-06] MEDS: IPRATROPIUM/ALBUTEROL 0.5-2.5 MG/3 ML AMPUL NEB SCH ×3 (08:16→20:19)
[2018-03-06] MEDS ORDERED: THIAMINE HCL 100 MG in NORMAL SALINE 50 ML IV SCH (10:00)
[2018-03-06] MEDS ORDERED: FOLIC ACID INJ 5 MG/1 ML 10 ML VIAL IV SCH (10:00)
[2018-03-06] MEDS: VANCOMYCIN HCL 1,500 MG in DEXTROSE 5%-WATER 250 ML IV SCH (10:11)
[2018-03-06] MEDS: ENOXAPARIN SODIUM INJ 40 MG/0.4 ML DISP.SYRIN SUBCUT SCH (10:12)
[2018-03-06] MEDS: THIAMINE HCL 100 MG, FOLIC ACID 1 MG in NORMAL SALINE 250 ML IV SCH (10:12)
[2018-03-06] MEDS: PANTOPRAZOLE SODIUM 40 MG VIAL IV SCH (10:12)
[2018-03-06] MEDS: POTASSI CL 20 MEQ/NS 1L 1,000 ML IV PRN ×2 (10:12→23:14)
[2018-03-06] MEDS: GUAIFENESIN 600 MG TABLET.SA PO SCH ×2 (10:12→21:00)
[2018-03-06 10:48] LABS: VANCOMYCIN,TROUGH 44.9 ug/mL (5.0-20.0)
[2018-03-06] MEDS: ACETAMINOPHEN 325 MG TABLET PO PRN ×2 (11:47→21:00)
--- NOTE | 2018-03-06 14:05 | PDOC PROGRESS REPORT ---
Subjective Progress Note for:: 03/06/18 - seen on rounds this morning Subjective:: much more awake this morning Reason For Visit: PNEUMONIA, ETOH WITHDRAWAL Physical Exam Vital Signs: Temp Pulse Resp BP Pulse Ox 101.6 F H 117 H 25 H 130/77 H 98 03/06/18 11:30 03/06/18 11:30 03/06/18 11:30 03/06/18 11:30 03/06/18 11:30 Intake & Output 03/05/18 03/06/18 03/07/18 06:59 06:59 06:59 Intake Total 870 3272 1050 Balance 870 3272 1050 Weight 125 lb 10.616 oz 124 lb 1.924 oz General appearance: PRESENT: no acute distress, thin, other - appears much older than stated age Eye exam: PRESENT: EOMI, PERRLA Ear exam: PRESENT: normal external ear exam Mouth exam: PRESENT: moist, neck supple, tongue midline Teeth exam: PRESENT: poor dentation Respiratory exam: PRESENT: symmetrical Cardiovascular exam: PRESENT: +S1, +S2 Pulses: PRESENT: +2 pedal pulses bilateral GI/Abdominal exam: PRESENT: normal bowel sounds, soft. ABSENT: tenderness Neurological exam: PRESENT: alert, oriented to person, oriented to place, oriented to time, oriented to situation, CN II-XII grossly intact Skin exam: PRESENT: dry, warm Results Laboratory Results: 03/05/18 06:08 03/06/18 09:55 03/05/18 03/06/18 21:00 09:55 Sodium 135.8 L Potassium 3.4 L Chloride 102 Carbon Dioxide 25 Anion Gap 9 BUN 6 L Creatinine 1.38 H 2.02 H Est GFR ( Amer) 48 L 31 L Est GFR (Non-Af Amer) 40 L 26 L Glucose 112 H Calcium 7.2 L Impressions: Acute Abdomen Series 03/01/18 18:35 IMPRESSION: Left lower lobe pneumonia. Nonspecific abdomen. Chest X-Ray 03/04/18 00:00 IMPRESSION: Interval progression in the previously described left lower lobe infiltrate as noted above and a small associated left pleural effusion is identified on the current study. Assessment & Plan - Diagnosis (1) Left lower lobe pneumonia Is this a current diagnosis for this admission?: Yes Plan: seen on CXR 2 days ago- i looked it myself- does look like the left side is worse than before. she was on vanco/zosyn for ?aspiration pna- but cr is worsening so will hold vanco and lower dose of zosyn- spoke with pharmacy. likely this is aspiration pna given her history of alcohol abuse. vanco and zosyn is likely more appropriate in this setting (2) Aspiration pneumonia Is this a current diagnosis for this admission?: Yes Plan: see plan above (3) Alcohol abuse Is this a current diagnosis for this admission?: Yes Plan: i have stopped her fentanyl patch and trying to stay away from all types of sedations. she's more awake today than yesterday. she does have valium and ativan ordered for acute agitation. seizure precautions. speech and swallow started her appropriate diet. i have switched all her PO meds to IV- folic acid and thiamine (4) Tobacco dependence Is this a current diagnosis for this admission?: Yes Plan: counseled on cessation (5) Gastroesophageal reflux disease Qualifiers: Esophagitis presence: without esophagitis Qualified Code(s): K21.9 - Gastro -esophageal reflux disease without esophagitis Is this a current diagnosis for this admission?: Yes (6) Hypokalemia Is this a current diagnosis for this admission?: Yes Plan: electrolyte imbalance likely due to her alcohol history. will continue to replete as needed.
[2018-03-06] MEDS ORDERED: NORMAL SALINE 1000 ML 500 ML IV ONE (14:30)
[2018-03-06] MEDS ORDERED: NORMAL SALINE 500 ML IV ONE (15:15)
[2018-03-06] MEDS: PIPERACILLIN SODIUM/TAZOBACTAM 2.25 GM in NORMAL SALINE 50 ML IV SCH ×2 (16:01→20:33)
[2018-03-06] MEDS: HALOPERIDOL LACTATE INJ 5 MG/1 ML VIAL IV PRN (20:33)
[2018-03-07] MEDS: LORAZEPAM INJ 2 MG/1 ML VIAL IV PRN ×3 (00:45→07:57)
[2018-03-07] MEDS: PIPERACILLIN SODIUM/TAZOBACTAM 2.25 GM in NORMAL SALINE 50 ML IV SCH ×4 (02:22→21:27)
[2018-03-07] MEDS: ACETAMINOPHEN 325 MG TABLET PO PRN ×2 (07:57→19:36)
[2018-03-07] MEDS ORDERED: FLUMAZENIL INJ 0.5 MG/5 ML VIAL ONE (08:17)
[2018-03-07] MEDS: IPRATROPIUM/ALBUTEROL 0.5-2.5 MG/3 ML AMPUL NEB SCH ×2 (08:24→14:18)
[2018-03-07 08:59] LABS: HEMATOCRIT 23.7 % (36.0-47.0); HEMOGLOBIN 8.1 g/dL (12.0-15.5); MEAN CORPUSCULAR HGB CONC 34.2 g/dL (32.0-36.0); MEAN CORPUSCULAR VOLUME 99 fl (80-97); PLATELET COUNT 352 10^3/uL (150-450); RED BLOOD COUNT 2.38 10^6/uL (3.72-5.28); RED CELL DISTRIBUTION WIDTH 17.4 % (11.5-14.0); WHITE BLOOD COUNT 14.7 10^3/uL (4.0-10.5)
[2018-03-07 09:18] LABS: ANION GAP 12 (5-19); BLOOD UREA NITROGEN 13 mg/dL (7-20); CALCIUM 7.4 mg/dL (8.4-10.2); CARBON DIOXIDE 20 mmol/L (22-30); CHLORIDE 109 mmol/L (98-107); GLUCOSE 85 mg/dL (75-110); POTASSIUM 3.9 mmol/L (3.6-5.0); SODIUM 141.3 mmol/L (137-145)
[2018-03-07] MEDS ORDERED: ENOXAPARIN SODIUM INJ 30 MG/0.3 ML DISP.SYRIN SUBCUT SCH (10:00)
[2018-03-07] MEDS: PANTOPRAZOLE SODIUM 40 MG VIAL IV SCH (10:07)
[2018-03-07] MEDS: GUAIFENESIN 600 MG TABLET.SA PO SCH ×2 (10:07→21:28)
[2018-03-07] MEDS: THIAMINE HCL 100 MG, FOLIC ACID 1 MG in NORMAL SALINE 250 ML IV SCH (10:10)
[2018-03-07 10:58] LABS: VANCOMYCIN,TROUGH 39.2 ug/mL (5.0-20.0)
[2018-03-07] MEDS ORDERED: NORMAL SALINE 1000 ML 1,000 ML IV ONE (12:00)
--- NOTE | 2018-03-07 14:04 | PDOC PROGRESS REPORT ---
Subjective Progress Note for:: 03/07/18 - Seen on rounds this morning Subjective:: Call early this morning by nursing stating the patient is much more lethargic and less coherent. Went to evaluate patient at bedside. Patient talking and responsive but very slow mentation. Discussed with nursing about overnight medications. States that she was slightly agitated last night and this morning and they had given her 2 time dosing of 2 mg of IV Ativan which has been ordered as needed for concern of seizures secondary to alcohol withdrawal. Interim history by previous provider: MARIA DE JESUS CAMPOS is a 52 year old female with past medical history of bipolar disorder, tobacco dependence, COPD, hepatitis C and alcohol abuse presented with chief complaint of cough, shortness of breath and chest pain. Patient has been started on ceftriaxone and Zithromax by the admitting physician. Since patient has history of sputum positive for MRSA during her previous admission and currently also patient is gives history of cough with yellow-green sputum I switched her antibiotics to Levaquin and vancomycin but the chest x-ray taken this morning reported as progression of the left lower lobe consolidation so in light of these I will DC the Levaquin and switched to Zosyn. Patient transfused 1 unit of packed RBC since her hemoglobin dropped 6.8 her posttransfusion hemoglobin is 9. Stool for occult blood is pending. I seen patient resting comfortably she is less agitated and more cooperative. Reason For Visit: PNEUMONIA, ETOH WITHDRAWAL Physical Exam Vital Signs: Temp Pulse Resp BP Pulse Ox 97.9 F 110 H 28 H 140/85 H 96 03/07/18 11:27 03/07/18 11:27 03/07/18 11:27 03/07/18 11:27 03/07/18 11:27 Intake & Output 03/06/18 03/07/18 03/08/18 06:59 06:59 06:59 Intake Total 3272 3096.2 401.2 Balance 3272 3096.2 401.2 Weight 124 lb 1.924 oz 138 lb 10.732 oz General appearance: PRESENT: no acute distress, disheveled - Appears much older than stated age, somewhat cachectic, other - Lethargic Head exam: PRESENT: atraumatic, normocephalic Eye exam: PRESENT: PERRLA - Slow and sluggish, other. ABSENT: conjunctival injection, scleral icterus - Pupils dilated Ear exam: PRESENT: normal external ear exam Mouth exam: PRESENT: tongue midline Teeth exam: PRESENT: poor dentation Neck exam: ABSENT: tracheal deviation Respiratory exam: PRESENT: decreased breath sounds - Poor inspiratory effort, occasional expiratory wheezing, symmetrical, wheezes Cardiovascular exam: PRESENT: +S1, +S2 Pulses: PRESENT: +2 pedal pulses bilateral GI/Abdominal exam: PRESENT: normal bowel sounds, soft. ABSENT: tenderness Extremities exam: ABSENT: joint swelling, pedal edema, +2 edema Neurological exam: PRESENT: CN II-XII grossly intact, other - She does respond to me when I call her name and looks slowly. She can answer but very slowly. She was able to tell me her name but not time and date. After giving flumazenil her mental status was much improved. She was AAO 3 and alert. Skin exam: PRESENT: dry, warm Results Laboratory Results: 03/07/18 08:23 03/07/18 10:28 03/07/18 03/07/18 03/07/18 08:23 08:23 08:23 WBC 14.7 H RBC 2.38 L Hgb 8.1 L Hct 23.7 L MCV 99 H MCH 34.0 H MCHC 34.2 RDW 17.4 H Plt Count 352 Sodium 141.3 Cancelled Potassium 3.9 Cancelled Chloride 109 H Cancelled Carbon Dioxide 20 L Cancelled Anion Gap 12 Cancelled BUN 13 Cancelled Creatinine 2.43 H Cancelled Est GFR ( Amer) 25 L Cancelled Est GFR (Non-Af Amer) 21 L Cancelled Glucose 85 Cancelled Calcium 7.4 L Cancelled Magnesium 1.5 L 03/07/18 10:28 WBC RBC Hgb Hct MCV MCH MCHC RDW Plt Count Sodium Potassium Chloride Carbon Dioxide Anion Gap BUN Creatinine 2.61 H Est GFR ( Amer) 23 L Est GFR (Non-Af Amer) 19 L Glucose Calcium Magnesium 03/02/18 12:26 Blood Blood Culture - Final NO GROWTH IN 5 DAYS 03/02/18 11:45 Blood Blood Culture - Final NO GROWTH IN 5 DAYS Impressions: Acute Abdomen Series 03/01/18 18:35 IMPRESSION: Left lower lobe pneumonia. Nonspecific abdomen. Chest X-Ray 03/04/18 00:00 IMPRESSION: Interval progression in the previously described left lower lobe infiltrate as noted above and a small associated left pleural effusion is identified on the current study. Assessment & Plan - Diagnosis (1) Left lower lobe pneumonia Is this a current diagnosis for this admission?: Yes (2) Aspiration pneumonia Is this a current diagnosis for this admission?: Yes (3) Acute kidney injury Is this a current diagnosis for this admission?: Yes (4) Alcohol abuse Is this a current diagnosis for this admission?: Yes (5) Tobacco dependence Is this a current diagnosis for this admission?: Yes (6) Gastroesophageal reflux disease Qualifiers: Esophagitis presence: without esophagitis Qualified Code(s): K21.9 - Gastro -esophageal reflux disease without esophagitis Is this a current diagnosis for this admission?: Yes (7) Hypokalemia Is this a current diagnosis for this admission?: Yes (8) Physical deconditioning Is this a current diagnosis for this admission?: Yes - Plan Summary Plan Summary: Please see subjective part of today's note for internal history. Called by nursing this morning for patient being more lethargic. Overnight she had received 2 doses of IV 2 mg Ativan for agitation. I checked her blood work and her creatinine has worsened and this may have led to Ativan being system longer than expected. This likely caused her lethargy and slowed mentation. Ordered 1 dose of flumazenil and her mentation and alertness improved within minutes. I spoken with nursing about use of Ativan and to use it judiciously. Patient has been on Zosyn and bank for lower lobe pneumonia which I suspect is likely aspiration due to her history of alcohol abuse. I had a long conversation with the family today who tells me that she drinks a lot and all the time. She has been deconditioned being in the hospital almost a week now. I spoke with family about care at home and they tell me that they request rehab for her. I discussed this with the patient and she is somewhat agreeable but wants to go home. I believe that she was at home because she was to drink more. She has been on Vanco and Zosyn for her pneumonia but I think her kidney function now is worse with a diagnosis of acute kidney injury likely due to medications. I spoken with pharmacy and they have decreased the dose of Zosyn and vancomycin. She is also not been drinking any water while in the hospital and will be given IV fluids. I will order a liter of IV bolus now and repeat BMP in the morning and see how she does. I have contacted case management regarding discharge planning with hopes of rehab. I am also get physical therapy to evaluate her and see if she qualifies. I think we should continue with physical therapy and await rehab placement. I counseled her on multiple occasions about smoking and alcohol cessation. Patient does not seem like she is ready to quit as she tells me so.
[2018-03-07] MEDS: POTASSI CL 20 MEQ/NS 1L 1,000 ML IV PRN (14:37)
[2018-03-07 16:26] LABS: ARTERIAL BLOOD BASE EXCESS -3.6 mmol/L; ARTERIAL BLOOD H2CO3 1.12 mmol/L (1.05-1.35); ARTERIAL BLOOD HCO3 21.2 mmol/L (20-26); ARTERIAL BLOOD O2 SATURATION 41.4 % (94-98); ARTERIAL BLOOD PCO2 37.1 mmHg (35-45); ARTERIAL BLOOD PH 7.38 (7.35-7.45); ARTERIAL BLOOD TOTAL CO2 22.3 mmol/L (21-25)
[2018-03-07 16:27] LABS: ARTERIAL BLOOD FIO2 ROOM AIR
[2018-03-07 16:28] LABS: ARTERIAL BLOOD PO2 23.9 mmHg (80-100)
[2018-03-07 17:07] LABS: ARTERIAL BLOOD BASE EXCESS -4.8 mmol/L; ARTERIAL BLOOD H2CO3 0.85 mmol/L (1.05-1.35); ARTERIAL BLOOD HCO3 18.4 mmol/L (20-26); ARTERIAL BLOOD O2 SATURATION 95.8 % (94-98); ARTERIAL BLOOD PCO2 28.3 mmHg (35-45); ARTERIAL BLOOD PH 7.43 (7.35-7.45); ARTERIAL BLOOD TOTAL CO2 19.2 mmol/L (21-25)
[2018-03-07] MEDS ORDERED: LEVALBUTEROL HCL NEB 1.25 MG/3 ML AMPUL NEB PRN (17:15)
--- NOTE | 2018-03-07 17:18 | RADIOLOGY REPORT (SQ) ---
EXAM DESCRIPTION: CHEST SINGLE VIEW COMPLETED DATE/TIME: 03/07/2018 5:02 pm REASON FOR STUDY: shortness of breath COMPARISON: 03/04/2018 EXAM PARAMETERS: NUMBER OF VIEWS: One view. TECHNIQUE: Single frontal radiographic view of the chest acquired. RADIATION DOSE: NA LIMITATIONS: None. FINDINGS: LUNGS AND PLEURA: Slightly increased airspace disease and pleural effusion at the left brian g base. New small right pleural effusion and basilar airspace opacities. MEDIASTINUM AND HILAR STRUCTURES: Stable. HEART AND VASCULAR STRUCTURES: Stable. BONES: No acute findings. HARDWARE: None in the chest. OTHER: No other significant finding. IMPRESSION: Slightly increased airspace disease and pleural effusion at the left lung base. New sma ll right pleural effusion and basilar airspace opacities. TECHNICAL DOCUMENTATION: JOB ID: [id number] [place]-72 2010 [employer]- All Rights Reserved Reading location - IP/workstation name: [email or web address]
[2018-03-07 17:57] LABS: ANION GAP 14 (5-19); BLOOD UREA NITROGEN 14 mg/dL (7-20); CALCIUM 7.6 mg/dL (8.4-10.2); CARBON DIOXIDE 17 mmol/L (22-30); CHLORIDE 111 mmol/L (98-107); GLUCOSE 91 mg/dL (75-110); POTASSIUM 4.3 mmol/L (3.6-5.0); SODIUM 141.7 mmol/L (137-145)
[2018-03-07] MEDS ORDERED: ACETAMINOPHEN 650 MG SUPP.RECT PR PRN ×2 (19:57→20:30)
[2018-03-07] MEDS ORDERED: IBUPROFEN 400 MG TABLET PO PRN (19:58)
[2018-03-07] MEDS ORDERED: LORAZEPAM INJ 2 MG/1 ML VIAL IV ONE (20:00)
[2018-03-07] MEDS ORDERED: IPRATROPIUM/ALBUTEROL 0.5-2.5 MG/3 ML AMPUL NEB PRN (20:00)
[2018-03-07] MEDS: HEPARIN SOD (PORCINE) 5,000 UNIT/ML 1 ML SYRINGE SUBCUT SCH (21:27)
--- NOTE | 2018-03-07 21:37 | RADIOLOGY REPORT (SQ) ---
EXAM DESCRIPTION: NM LUNG PERFUSION SCAN COMPLETED DATE/TIME: 03/07/2018 9:13 pm REASON FOR STUDY: SOB, elevated d-dimer COMPARISON: None. RADIONUCLIDE AND DOSE: 5.4 millicuries TC-99m MAA The route of agent administration: Intravenous TECHNIQUE: Eight views of the lungs acquired following injection of MAA. LIMITATIONS: None. FINDINGS: PERFUSION: Perfusion images show bilateral heterogeneous activity. OTHER: No other significant finding. IMPRESSION: Perfusion images show bilateral heterogeneous activity. TECHNICAL DOCUMENTATION: JOB ID: [id number] 2010 [employer]- All Rights Reserved Reading location - IP/workstation name: [email or web address]
[2018-03-08] MEDS ORDERED: HALOPERIDOL LACTATE INJ 5 MG/1 ML VIAL IM PRN (01:14)
[2018-03-08] MEDS: PIPERACILLIN SODIUM/TAZOBACTAM 2.25 GM in NORMAL SALINE 50 ML IV SCH (02:17)
[2018-03-08] MEDS: POTASSI CL 20 MEQ/NS 1L 1,000 ML IV PRN (04:54)
[2018-03-08] MEDS: HEPARIN SOD (PORCINE) 5,000 UNIT/ML 1 ML SYRINGE SUBCUT SCH (05:06)
[2018-03-08 05:30] LABS: HEMATOCRIT 23.9 % (36.0-47.0); MEAN CORPUSCULAR HEMOGLOBIN 33.4 pg (27.0-33.4); MEAN CORPUSCULAR HGB CONC 33.2 g/dL (32.0-36.0); MEAN CORPUSCULAR VOLUME 101 fl (80-97); PLATELET COUNT 373 10^3/uL (150-450); RED BLOOD COUNT 2.38 10^6/uL (3.72-5.28); RED CELL DISTRIBUTION WIDTH 17.6 % (11.5-14.0); WHITE BLOOD COUNT 16.2 10^3/uL (4.0-10.5)
[2018-03-08 05:32] LABS: HEMOGLOBIN 7.9 g/dL (12.0-15.5)
[2018-03-08 06:01] LABS: ALANINE AMINOTRANSFERASE 23 U/L (9-52); ALBUMIN 2.3 g/dL (3.5-5.0); ALKALINE PHOSPHATASE 78 U/L (38-126); ANION GAP 12 (5-19); ASPARTATE AMINO TRANSFERASE 26 U/L (14-36); BILIRUBIN,DIRECT 0.8 mg/dL (0.0-0.4); BLOOD UREA NITROGEN 14 mg/dL (7-20); CALCIUM 7.6 mg/dL (8.4-10.2); CARBON DIOXIDE 19 mmol/L (22-30); CHLORIDE 113 mmol/L (98-107); GLUCOSE 83 mg/dL (75-110); POTASSIUM 3.8 mmol/L (3.6-5.0); TOTAL PROTEIN 5.3 g/dL (6.3-8.2)
[2018-03-08] MEDS ORDERED: HALOPERIDOL LACTATE INJ 5 MG/1 ML VIAL IM ONE (06:30)
[2018-03-08 07:06] LABS: INTERNATIONAL RATION (INR) 1.14; PROTHROMBIN TIME 15.2 SEC (11.4-15.4)
[2018-03-08] MEDS: HEPARIN SODIUM,PORCINE/D5W 25,000 UNIT/250 ML RTUINJ IV PRN (07:42)
[2018-03-08] MEDS ORDERED: MEROPENEM 1 GM in NORMAL SALINE 50 ML IV SCH (10:00)
[2018-03-08] MEDS ORDERED: MEROPENEM 500 MG in NORMAL SALINE 50 ML IV SCH (10:00)
[2018-03-08] MEDS: PANTOPRAZOLE SODIUM 40 MG VIAL IV SCH ×2 (10:48→18:04)
[2018-03-08] MEDS: GUAIFENESIN 600 MG TABLET.SA PO SCH ×2 (10:50→22:41)
[2018-03-08 11:18] LABS: ARTERIAL BLOOD BASE EXCESS -7.3 mmol/L; ARTERIAL BLOOD H2CO3 0.85 mmol/L (1.05-1.35); ARTERIAL BLOOD HCO3 16.8 mmol/L (20-26); ARTERIAL BLOOD O2 SATURATION 97.2 % (94-98); ARTERIAL BLOOD PCO2 28.3 mmHg (35-45); ARTERIAL BLOOD PH 7.39 (7.35-7.45); ARTERIAL BLOOD PO2 92.4 mmHg (80-100); ARTERIAL BLOOD TOTAL CO2 17.7 mmol/L (21-25)
[2018-03-08 11:19] LABS: ARTERIAL BLOOD FIO2 ROOM AIR
[2018-03-08] MEDS ORDERED: LORAZEPAM INJ 2 MG/1 ML VIAL ONE ×2 (11:38→12:55)
[2018-03-08] MEDS: THIAMINE HCL 100 MG, FOLIC ACID 1 MG in NORMAL SALINE 250 ML IV SCH (11:40)
--- NOTE | 2018-03-08 12:02 | RADIOLOGY REPORT (SQ) ---
EXAM DESCRIPTION: CHEST SINGLE VIEW COMPLETED DATE/TIME: 03/08/2018 11:41 am REASON FOR STUDY: dyspnea, tachycardia COMPARISON: AP chest 03/07/2018, 03/04/2018 CT chest 06/07/2017 EXAM PARAMETERS: NUMBER OF VIEWS: One view. TECHNIQUE: Single frontal radiographic view of the chest acquired. RADIATION DOSE: NA LIMITATIONS: None. FINDINGS: LUNGS AND PLEURA: Trace left pleural effusion. There is dense consolidation in the left l ower lobe worrisome for aspiration pneumonia. Bandlike scarring left upper lobe and area of old prior cavitary infiltrate seen on CT 06/07/2017. Th is finding was discussed with Cassie Partida Right lung hyperinflated and hyperlucent from obstructive disease. Minimal basilar atelectasis. No gross right pleural effusion. No right or left pneumothorax MEDIASTINUM AND HILAR STRUCTURES: No masses. Contour normal. HEART AND VASCULAR STRUCTURES: Heart normal in size. Normal vasculature. BONES: No acute findings. HARDWARE: None in the chest. OTHER: No other significant finding. IMPRESSION: Dense consolidation in the left lower lobe worrisome for aspiration pneumonia Bandlike scarring in the left upper lobe, in an area of cavitary infiltrate seen on CT chest 7 Small left pleural effusion TECHNICAL DOCUMENTATION: JOB ID: [id number] [employer]- All Rights Reserved Reading location - IP/workstation name: [email or web address]
[2018-03-08] MEDS ORDERED: NORMAL SALINE 500 ML with OCTREOTIDE ACETATE 500 MCG IV PRN ×2 (12:03)
[2018-03-08 12:58] LABS: ABSOLUTE LYMPHOCYTES# (MANUAL) 1.3 10^3/uL (0.5-4.7); ABSOLUTE MONOCYTES # (MANUAL) 1.5 10^3/uL (0.1-1.4); ABSOLUTE NEUTROPHILS# (MANUAL) 13.3 10^3/uL (1.7-8.2); ANISOCYTOSIS 2+; BASOPHILS % (MANUAL) 0 % (0-2); EOSINOPHILS % (MANUAL) 1 % (0-6); HYPOCHROMASIA 1+; LYMPHOCYTES % (MANUAL) 7 % (13-45); MONOCYTES % (MANUAL) 9 % (3-13); OVALOCYTES SLIGHT; PLATELET CLUMPS PRESENT; PLATELET LARGE PRESENT; POIKILOCYTOSIS 1+; ROULEAUX SLIGHT; SEGMENTED NEUTROPHILS % (MAN) 82 % (42-78); TOTAL CELLS COUNTED 100; TOXIC GRANULATION SLIGHT; TOXIC VACUOLATION PRESENT
[2018-03-08 12:59] LABS: BURR CELLS SLIGHT
--- NOTE | 2018-03-08 13:19 | EKG REPORT ---
SEVERITY:- ABNORMAL ECG - SINUS TACHYCARDIA LOW VOLTAGE IN FRONTAL LEADS CONSIDER ANTERIOR INFARCT NONSPECIFIC T ABNORMALITIES, LATERAL LEADS : Confirmed by: Antonella Vallejo MD 08-Mar-2018 13:18:26
[2018-03-08 13:21] LABS: CREATINE KINASE MB 4.01 ng/mL (<4.55)
[2018-03-08 13:27] LABS: TROPONIN I 0.88 ng/mL
[2018-03-08 13:28] LABS: ANION GAP 16 (5-19); BLOOD UREA NITROGEN 15 mg/dL (7-20); CALCIUM 7.9 mg/dL (8.4-10.2); CARBON DIOXIDE 15 mmol/L (22-30); CHLORIDE 113 mmol/L (98-107); GLUCOSE 97 mg/dL (75-110); PHOSPHORUS 5.5 mg/dL (2.5-4.5); POTASSIUM 4.1 mmol/L (3.6-5.0); SODIUM 144.1 mmol/L (137-145)
[2018-03-08 13:30] LABS: AMYLASE < 30 U/L (30-110)
[2018-03-08] MEDS ORDERED: DEXTROSE 5%-WATER 1000 ML 1,000 ML with SODIUM BICARBONATE 150 MEQ IV PRN ×2 (13:30)
--- NOTE | 2018-03-08 13:47 | Operative Report ---
Bedside Procedure - History of Present Illness History of Present Illness: MARIA DE JESUS CAMPOS is a 52 year old female with past medical history of COPD with active smoker, hep C, alcohol abuse, bipolar disorder presents to the emergency room with 1 week history of productive cough with yellow-green sputum and shortness of breath as well as right lower pleuritic chest pain. Patient has been lifelong alcoholic drinker. Patient's last alcohol drink was today morning. She usually drinks beer. Patient has history of alcohol withdrawal. Patient reports that she has been having shortness of breath which is progressively getting worse. Patient denies fever or chills patient reports few episode of vomiting which was nonbloody. Patient denies abdominal pain or back pain or melena or rectal bleeding. Patient denies urinary symptoms are focal weakness or numbness. Arrival to emergency room her vitals were stable except blood pressure was initially low which improved with IV fluid. Her oxygen saturation was 99% on room air. Laboratory workup shows a white count of 18,000 with hemoglobin is 8.9 which is around baseline. Her potassium was low. Troponin is negative. Chest x-ray shows left lower lobe pneumonia. Patient was given IV Rocephin and Zithromax. Patient was referred to hospital service for admission. Indication for Procedure: IV access Date: 03/08/18 Surgeon: CHOCO RAWLS - Central Line Right Internal jugular Time completed: 13:15 Consent obtained: Yes Central line pre-insertion: Sterile PPE donned, Chloraprep applied, Sterile drapes applied Central line lumen type: Triple Anesthetic type: 1% Lidocaine Ultrasound guided: Yes Line secured with sutures: Yes Central line post-insertion: Blood return from lumens, Biopatch applied, Sutured , Sterile dressing applied Number of attempts: 1 Complications: No
--- NOTE | 2018-03-08 13:52 | RADIOLOGY REPORT (SQ) ---
EXAM DESCRIPTION: CHEST SINGLE VIEW COMPLETED DATE/TIME: 03/08/2018 1:35 pm REASON FOR STUDY: central line placement COMPARISON: 03/08/2018 EXAM PARAMETERS: NUMBER OF VIEWS: One view. TECHNIQUE: Single frontal radiographic view of the chest acquired. RADIATION DOSE: NA LIMITATIONS: None. FINDINGS: LUNGS AND PLEURA: The previously described dense airspace consolidation in the left lower lobe is again identified. I cannot exclude a small associated left pleural effusion. Right lung rem ains clear. No pneumothorax is seen. MEDIASTINUM AND HILAR STRUCTURES: No masses. Contour normal. HEART AND VASCULAR STRUCTURES: The configuration of the heart mediastinal structures is unchanged. BONES: No acute findings. HARDWARE: Right-sided central line is seen with its tip at the level of the right atrium. OTHER: No other significant finding. IMPRESSION: Right-sided central line with its tip at the level of the right atrium. No pneumothorax is seen. Other findings as noted above TECHNICAL DOCUMENTATION: JOB ID: [id number] [employer]- All Rights Reserved Reading location - IP/workstation name: [email or web address]
[2018-03-08] MEDS ORDERED: MAGNESIUM SULFATE/D5W 1 GM/100 ML RTUPB IV ONE (14:00)
[2018-03-08] MEDS ORDERED: FUROSEMIDE INJ/PF 40 MG/4 ML SDV IV ONE (14:00)
[2018-03-08] MEDS ORDERED: TUBERCULIN,PURIF.PROT.DERIV. 5 TU/0.1 ML TEST 1 ML VIAL ID ONE (14:00)
[2018-03-08] MEDS: DEXTROSE 5%-WATER 1000 ML 1,000 ML with SODIUM BICARBONATE 150 MEQ IV PRN ×2 (14:52)
[2018-03-08 15:46] LABS: ARTERIAL BLOOD BASE EXCESS -7.6 mmol/L; ARTERIAL BLOOD FIO2 ROOM AIR; ARTERIAL BLOOD H2CO3 0.88 mmol/L (1.05-1.35); ARTERIAL BLOOD HCO3 17.1 mmol/L (20-26); ARTERIAL BLOOD O2 SATURATION 92.7 % (94-98); ARTERIAL BLOOD PCO2 29.3 mmHg (35-45); ARTERIAL BLOOD PH 7.38 (7.35-7.45); ARTERIAL BLOOD PO2 64.3 mmHg (80-100)
[2018-03-08] MEDS ORDERED: LIDOCAINE 1% INJ (10 MG/ML) 10 ML MDV INJ ONE (16:00)
[2018-03-08] MEDS ORDERED: LIDOCAINE 2% INJ-PF (100 MG/5 ML) SYRINGE ONE (16:00)
--- NOTE | 2018-03-08 17:42 | RADIOLOGY REPORT (SQ) ---
EXAM DESCRIPTION: CHEST SINGLE VIEW COMPLETED DATE/TIME: 03/08/2018 5:22 pm REASON FOR STUDY: Central line placement. COMPARISON: 03/08/2018 EXAM PARAMETERS: NUMBER OF VIEWS: One view. TECHNIQUE: Single frontal radiographic view of the chest acquired. RADIATION DOSE: NA LIMITATIONS: None. FINDINGS: LUNGS AND PLEURA: The previously described dense airspace consolidation in the left lower lobe is again identified. I cannot exclude a small associated left pleural effusion. Right lung rem ains clear. No pneumothorax is seen. MEDIASTINUM AND HILAR STRUCTURES: No masses. Contour normal. HEART AND VASCULAR STRUCTURES: The configuration of the heart mediastinal structures is unchanged BONES: No acute findings. HARDWARE: Right-sided central line is now seen with its tip at the approximate junction of SVC and ri ght atrium. OTHER: No other significant finding. IMPRESSION: Right-sided central line with its tip at the approximate junction of SVC and right atriu m. No pneumothorax is seen. Other findings as noted above TECHNICAL DOCUMENTATION: JOB ID: [id number] [employer]- All Rights Reserved Reading location - IP/workstation name: [email or web address]
--- NOTE | 2018-03-08 18:11 | Progress Note ---
Provider Note Provider Note: ID Consult Note Asked to review patient's chart. Pt not seen or examined. Reviewed provider notes, CXR images and reports, and labs and discussed pt briefly over the telephone with Cassie Partida NP. Ms. Merida is a 52 year old woman with PMH including active tobacco use, COPD, alcohol abuse, bipolar d/o and an episode of necrotizing pneumonia due to MRSA in Jun 2017 who was admitted on 03/01/18 with 1 week of productive cough with yellow-green sputum, worsening SOB, and pleuritic CP. Pt had a few episodes of vomiting but no fever prior to admission. She was found to have decreased breath sounds over the L lung base. WBC count was 18k. CXR showed LLL infiltrate. Blood cultures were drawn, which have been negative. No sputum was sent. Empirically azithromycin x 1 and Rocephin x 1 dose were given. Levaquin was continued from 03/02 to 03/04, vancomycin from 03/02 to 03/06, and Zosyn from 03/04 to 03/08. Pt developed acute kidney injury with creatinine peaking at 2.9. Vancomycin was discontinued. Pt is reported to be doing worse overall. She is more tachypneic, although she remains on room air with O2 sats in the mid-90s. Although initially she had no fever, she had a temperature up to 101 F on 03/04, again on 03/06 to 101.6, and 101.2 on 03/07. She has been afebrile thus far today. Other studies of note have included NT-pro-BNP of 26,800 (previously in the normal range in 2016). Today repeat BCx has been ordered along with Legionella urine antigen. Impression/Recommendations LLL pneumonia - This appears to be community acquired pneumonia; I am not aware based on chart review of any recent IV antibiotic exposure to indicate that the patient would be at higher risk for more resistant pathogens. Her CXR looks largely similar to previous. She may have some increased tachypnea due to respiratory compensation for metabolic acidosis resulting from THADDEUS. With reported clinical decline, it may be reasonable in the short term to continue meropenem and, if vancomycin is no longer therapeutic, linezolid could be added in place of vancomycin for anti-MRSA activity. However, I would advocate reassessing whether it is truly needed considering she has already been treated for a week at this point with vancomycin. The same may be true for meropenem. Today is day 5 of broad spectrum, anti-Pseudomonal and anaerobic active therapy (Zosyn - > meropenem). Usually, even HAP and VAP are treated for a total of 7-8 days of antibiotics. Continued reassessment is indicated. - Legionella urine antigen is in process and restarting a fluoroquinolone while awaiting the result is reasonable. Legionella would not be expected to respond to beta-lactams such as meropenem or Zosyn. - Other studies that could be considered in absence of sputum to guide therapy would include Strep pneumo urine antigen. If positive, it would be helpful, but sensitivity is in the range of 50-80% and if negative does not rule out pneumococcal pneumonia. Guero Ng MD [facility] Infectious Diseases pager [phone]
[2018-03-08 18:13] LABS: ANION GAP 16 (5-19); BLOOD UREA NITROGEN 17 mg/dL (7-20); CARBON DIOXIDE 17 mmol/L (22-30); CHLORIDE 111 mmol/L (98-107); GLUCOSE 101 mg/dL (75-110); POTASSIUM 3.4 mmol/L (3.6-5.0); SODIUM 143.8 mmol/L (137-145)
[2018-03-08 18:15] LABS: INTERNATIONAL RATION (INR) 1.17; PROTHROMBIN TIME 15.5 SEC (11.4-15.4)
[2018-03-08 18:16] LABS: PARTIAL THROMBOPLASTIN TIME 38.9 SEC (23.5-35.8)
[2018-03-08 18:18] LABS: VANCOMYCIN,TROUGH 27.3 ug/mL (5.0-20.0)
[2018-03-08 18:19] LABS: HEMATOCRIT 29.4 % (36.0-47.0); HEMOGLOBIN 9.7 g/dL (12.0-15.5); MEAN CORPUSCULAR HEMOGLOBIN 32.5 pg (27.0-33.4); MEAN CORPUSCULAR HGB CONC 33.1 g/dL (32.0-36.0); MEAN CORPUSCULAR VOLUME 98 fl (80-97); PLATELET COUNT 389 10^3/uL (150-450); RED BLOOD COUNT 2.98 10^6/uL (3.72-5.28); RED CELL DISTRIBUTION WIDTH 18.5 % (11.5-14.0)
[2018-03-08 18:39] LABS: ABSOLUTE LYMPHOCYTES# (MANUAL) 0.8 10^3/uL (0.5-4.7); ABSOLUTE MONOCYTES # (MANUAL) 0.4 10^3/uL (0.1-1.4); ABSOLUTE NEUTROPHILS# (MANUAL) 19.7 10^3/uL (1.7-8.2); BASOPHILS % (MANUAL) 0 % (0-2); EOSINOPHILS % (MANUAL) 0 % (0-6); LYMPHOCYTES % (MANUAL) 4 % (13-45); MONOCYTES % (MANUAL) 2 % (3-13); SEGMENTED NEUTROPHILS % (MAN) 94 % (42-78); TOTAL CELLS COUNTED 100
[2018-03-08 18:42] LABS: ANISOCYTOSIS SLIGHT; BURR CELLS SLIGHT; PLATELET COMMENT ADEQUATE; POIKILOCYTOSIS SLIGHT; TARGET CELLS SLIGHT
[2018-03-08 18:45] LABS: TOXIC GRANULATION SLIGHT
--- NOTE | 2018-03-08 18:46 | XCELERA REPORT ---
[address] [address] Transthoracic Echocardiogram Report Name: MARIA DE JESUS CAMPOS Age: 52 yrs Gender: Female : 1965 Patient Status: Inpatient Patient Location: [address] [place] [address] Study Date: 03/08/2018 04:48 PM Procedure: A complete two-dimensional transthoracic echocardiogram was performed (2D, M-mode, spectral and color flow Doppler). The study was technically difficult with many images being suboptimal in quality. Reason For Study: elevated B P Ordering Physician: CHOCO RAWLS Performed By: Shaye Orellana Interpretation Summary LV EF is 35% Left ventricular systolic function is moderate to severely reduced. Doppler measurements suggest reversible restrictive left ventricular relaxation, which is associated with grade III/IV or moderate diastolic dysfunction There is borderline concentric left ventricular hypertrophy. The left ventricle is grossly normal size. The right ventricular systolic function is mild to moderately reduced. The right atrium is normal in size The left atrium is mildly dilated. There is no mitral valve stenosis. There is a trace amount of mitral regurgitation There is no aortic valve stenosis No aortic regurgitation is present. There is no tricuspid stenosis. No tricuspid regurgitation. The aortic root is not well visualized but is probably normal size. The inferior vena cava was not well visualized Minimal pericardial effusion. MMode/2D Measurements & Calculations RVDd: 2.8 cm LVIDd: 4.0 cm FS: 30.4 % Ao root diam: 2.8 cm IVSd: 1.1 cm LVIDs: 2.8 cm EDV(Teich): 69.1 ml Ao root area: 6.3 cm2 LVPWd: 1.0 cm ESV(Teich): 28.8 ml EF(Teich): 58.3 % Doppler Measurements & Calculations LV V1 max P.5 mmHg LV V1 max: 60.9 cm/sec Left Ventricle The left ventricle is grossly normal size. There is borderline concentric left ventricular hypertrophy. Left ventricular systolic function is moderate to severely reduced. LV EF is 35%. Doppler measurements suggest reversible restrictive left ventricular relaxation, which is associated with grade III/IV or moderate diastolic dysfunction. Regional wall motion abnormalities cannot be excluded due to limited visualization. Right Ventricle The right ventricle is grossly normal size. There is normal right ventricular wall thickness. The right ventricular systolic function is mild to moderately reduced. Atria The right atrium is normal in size. The left atrium is mildly dilated. Interarterial septum not well visualized and not well dopplered. Cannot comment on ASD/PFO presence. Mitral Valve The mitral valve is grossly normal. There is no mitral valve stenosis. There is a trace amount of mitral regurgitation. Aortic Valve The aortic valve is not well visualized secondary to technical limitations. There is no aortic valve stenosis. No aortic regurgitation is present. Tricuspid Valve The tricuspid valve is not well visualized, but is grossly normal. There is no tricuspid stenosis. No tricuspid regurgitation. Pulmonic Valve The pulmonic valve is not well visualized. Great Vessels The aortic root is not well visualized but is probably normal size. The inferior vena cava was not well visualized. Effusions Minimal pericardial effusion. : CHOCO RAWLS > Donaldo Graham
[2018-03-08] MEDS: HEPARIN SOD (PORCINE) 1,000 UNIT/ML 10 ML VIAL IV PRN (19:02)
--- NOTE | 2018-03-08 19:41 | PDOC CONSULTATION ---
Consultation Consult Date: 03/08/18 Attending physician:: АНДРЕЙ KHANNA Consult reason:: Abnormal echocardiogram, elevated BNP level History of Present Illness Admission Date/PCP: 03/01/18 21:21 Patient complains of: Shortness of breath History of Present Illness: MARIA DE JESUS MERIDA is a 52 year old female with past medical history of COPD with active smoker, hep C, alcohol abuse, bipolar disorder presents to the emergency room with 1 week history of productive cough with yellow-green sputum and shortness of breath as well as right lower pleuritic chest pain. Patient has been lifelong alcoholic drinker. Patient's last alcohol drink was today morning. She usually drinks beer. Patient has history of alcohol withdrawal. Patient reports that she has been having shortness of breath which is progressively getting worse. Patient denies fever or chills patient reports few episode of vomiting which was nonbloody. Patient denies abdominal pain or back pain or melena or rectal bleeding. Patient denies urinary symptoms are focal weakness or numbness. Arrival to emergency room her vitals were stable except blood pressure was initially low which improved with IV fluid. Her oxygen saturation was 99% on room air. Laboratory workup shows a white count of 18,000 with hemoglobin is 8.9 which is around baseline. Her potassium was low. Troponin is negative. Chest x-ray shows left lower lobe pneumonia. Patient was given IV Rocephin and Zithromax. Patient was referred to hospital service for admission. Course during this hospitalization was reviewed. Case discussed with hospitalist. Patient had a 2D echocardiogram which was noted to show severe systolic dysfunction and also significant diastolic dysfunction. I was therefore asked to evaluate patient. When patient was seen, she was noted to be in restraints and confused therefore could not give me any more details. There is no prior history of known heart problems. Past Medical History Cardiac Medical History: Reports: None Pulmonary Medical History: Reports: Asthma, Bronchitis, Pneumonia Denies: Tuberculosis Neurological Medical History: Denies: Seizures Psychiatric Medical History: Reports: Alcohol Dependency, Bipolar Disorder, Depression, Post Traumatic Stress Disorder, Other - Alcohol abuse Hematology: Reports: Anemia Infectious Medical History: Reports: Hepatitis C Past Surgical History Past Surgical History: Reports: Tubal Ligation Denies: Appendectomy, Section, Cholecystectomy, Coronary Artery Bypass Graft, Gastric Bypass Surgery, Herniorrhaphy, Hysterectomy, Mastectomy, Pacemaker, Tonsillectomy Social History Information Source: [facility] Records Lives with: Alone Smoking Status: Current Every Day Smoker Cigarettes Packs Per Day: 10 Number of Years Smokin Last Time Smoked: 532127 Frequency of Alcohol Use: Heavy Hx Recreational Drug Use: No Drugs: None Hx Prescription Drug Abuse: No - Advance Directive Resuscitation Status: Full Code Surrogate healthcare decision maker:: Darell Merida, phone #[phone] Family History Family History: COPD Parental Family History Reviewed: Yes Children Family History Reviewed: Yes Sibling(s) Family History Reviewed.: Yes Medication/Allergy Home Medications: Aspirin/Acetaminophen/Caffeine [Goody's Ex-Str Powder Packet] 1 pkt PO DAILY PRN 03/01/18 Diphenhydramine HCl [Benadryl 25 mg Capsule] 50 mg PO DAILY 03/01/18 Ranitidine HCl [Zantac] 300 mg PO DAILY 03/01/18 Allergies/Adverse Reactions: No Known Allergies Allergy (Verified 03/01/18 18:06) Review of Systems ROS unobtainable: Due to mental status Physical Exam Vital Signs: Temp Pulse Resp BP Pulse Ox 98.2 F 122 H 34 H 142/99 H 96 03/08/18 15:33 03/08/18 15:33 03/08/18 15:33 03/08/18 15:33 03/08/18 15:55 Pulse Oximeter Continuous Start: 03/08/18 13: 28 Freq: RTQ4 Status: Active Document 03/08/18 15:55 LDA (Rec: 03/08/18 15:56 LDA [id number]) Pulse Oximetry Assessment Oxygen Saturation (92-100) 96 Oxygen Delivery Method Room Air Fraction of Inspired Oxygen (FIO2) 21 Equipment Usage Equipment in Use Continuous SpO2 Machine # [id number] Intake & Output 03/07/18 03/08/18 03/09/18 06:59 06:59 06:59 Intake Total 3096.2 3601.2 876.2 Output Total 475 Balance 3096.2 3601.2 401.2 Weight 62.9 kg 65.6 kg Exam: GENERAL: well-nourished and in no acute distress. Alert, orientation could not be checked HEAD: Atraumatic, normocephalic. EYES: Pupils equal round and reactive to light, extraocular movements intact, sclera anicteric, conjunctiva are normal. ENT: TMs normal, nares patent, oropharynx clear without exudates. Moist mucous membranes. No oral ulcerations or bleeding gums noted NECK: supple without lymphadenopathy. Trachea is central. No cervical or axillary lymphadenopathy noted. Carotids are 2+, JVD WNL LUNGS: Respiration seems nonlabored, no significant accessory muscle action noted. Breath sounds clear to auscultation bilaterally and equal noted. No wheezes rales or rhonchi noted. No significant dullness noted on percussion. CHEST: Palpation of the chest wall shows no significant chest wall tenderness. HEART: Hurricane SPINDLE SANDER, No PSH, 1/6 SHILPA aortic area, 1/6 londono systolic murmur mitral area, no rubs, no gallops. ABDOMEN: Soft, no significant tenderness appreciated, normoactive bowel sounds. No guarding, no rebound. No rigidity noted . No masses appreciated. EXTREMITIES: Pedal pulses are 1-2+, no calf tenderness noted. No clubbing or cyanosis. 1+ pedal edema noted NEUROLOGICAL: Patient unable to cooperate fully with neurological exam but is noted to move all 4 extremities, no facial asymmetry noted. PSYCH: Mood and judgment could not be checked. SKIN: No significant ecchymosis, skin is noted to be warm. MUSCULOSKELETAL EXAM: No significant acute joint swelling noted. Results Laboratory Results: 03/08/18 17:30 03/08/18 17:30 03/08/18 03/08/18 03/08/18 05:00 05:00 06:33 WBC 16.2 H RBC 2.38 L Hgb 7.9 L Hct 23.9 L MCV 101 H MCH 33.4 MCHC 33.2 RDW 17.6 H Plt Count 373 Seg Neutrophils % Not Reportable Lymphocytes % Not Reportable Monocytes % Not Reportable Eosinophils % Not Reportable Basophils % Not Reportable Absolute Neutrophils Not Reportable Absolute Lymphocytes Not Reportable Absolute Monocytes Not Reportable Absolute Eosinophils Not Reportable Absolute Basophils Not Reportable Carbonic Acid HCO3/H2CO3 Ratio ABG pH ABG pCO2 ABG pO2 ABG HCO3 ABG O2 Saturation ABG Base Excess FiO2 Sodium 144.0 Potassium 3.8 Chloride 113 H Carbon Dioxide 19 L Anion Gap 12 BUN 14 Creatinine 2.89 H Est GFR ( Amer) 21 L Est GFR (Non-Af Amer) 17 L Glucose 83 Lactic Acid 1.2 Calcium 7.6 L Phosphorus Magnesium Total Bilirubin 1.0 AST 26 ALT 23 Alkaline Phosphatase 78 Ammonia Total Protein 5.3 L Albumin 2.3 L Amylase Lipase Stool Occult Blood Blood Type Antibody Screen 03/08/18 03/08/18 03/08/18 06:33 11:11 12:19 WBC RBC Hgb Hct MCV MCH MCHC RDW Plt Count Seg Neutrophils % Lymphocytes % Monocytes % Eosinophils % Basophils % Absolute Neutrophils Absolute Lymphocytes Absolute Monocytes Absolute Eosinophils Absolute Basophils Carbonic Acid 0.85 L HCO3/H2CO3 Ratio 19:1 ABG pH 7.39 ABG pCO2 28.3 L ABG pO2 92.4 ABG HCO3 16.8 L ABG O2 Saturation 97.2 ABG Base Excess -7.3 FiO2 ROOM AIR Sodium Potassium Chloride Carbon Dioxide Anion Gap BUN Creatinine Est GFR ( Amer) Est GFR (Non-Af Amer) Glucose Lactic Acid Calcium Phosphorus Magnesium Total Bilirubin AST ALT Alkaline Phosphatase Ammonia Total Protein Albumin Amylase Lipase Stool Occult Blood NEGATIVE Blood Type O POSITIVE Antibody Screen NEGATIVE 03/08/18 03/08/18 03/08/18 12:38 12:38 12:38 WBC RBC Hgb Hct MCV MCH MCHC RDW Plt Count Seg Neutrophils % Lymphocytes % Monocytes % Eosinophils % Basophils % Absolute Neutrophils Absolute Lymphocytes Absolute Monocytes Absolute Eosinophils Absolute Basophils Carbonic Acid HCO3/H2CO3 Ratio ABG pH ABG pCO2 ABG pO2 ABG HCO3 ABG O2 Saturation ABG Base Excess FiO2 Sodium 144.1 Potassium 4.1 Chloride 113 H Carbon Dioxide 15 L Anion Gap 16 BUN 15 Creatinine 2.83 H Est GFR ( Amer) 21 L Est GFR (Non-Af Amer) 17 L Glucose 97 Lactic Acid 1.6 Calcium 7.9 L Phosphorus 5.5 H Magnesium 1.5 L Total Bilirubin AST ALT Alkaline Phosphatase Ammonia < 8.7 L Total Protein Albumin Amylase < 30 L Lipase 39.0 Stool Occult Blood Blood Type Antibody Screen 03/08/18 03/08/18 03/08/18 15:18 17:30 17:30 WBC 21.0 H RBC 2.98 L Hgb 9.7 L Hct 29.4 L MCV 98 H MCH 32.5 MCHC 33.1 RDW 18.5 H Plt Count 389 Seg Neutrophils % Not Reportable Lymphocytes % Not Reportable Monocytes % Not Reportable Eosinophils % Not Reportable Basophils % Not Reportable Absolute Neutrophils Not Reportable Absolute Lymphocytes Not Reportable Absolute Monocytes Not Reportable Absolute Eosinophils Not Reportable Absolute Basophils Not Reportable Carbonic Acid 0.88 L HCO3/H2CO3 Ratio 19:1 ABG pH 7.38 ABG pCO2 29.3 L ABG pO2 64.3 L ABG HCO3 17.1 L ABG O2 Saturation 92.7 L ABG Base Excess -7.6 FiO2 ROOM AIR Sodium 143.8 Potassium 3.4 L Chloride 111 H Carbon Dioxide 17 L Anion Gap 16 BUN 17 Creatinine 2.93 H Est GFR ( Amer) 20 L Est GFR (Non-Af Amer) 17 L Glucose 101 Lactic Acid Calcium 8.0 L Phosphorus Magnesium Total Bilirubin AST ALT Alkaline Phosphatase Ammonia Total Protein Albumin Amylase Lipase Stool Occult Blood Blood Type Antibody Screen 03/08/18 03/08/18 12:38 18:00 CK-MB (CK-2) 4.01 Troponin I 0.880 0.868 NT-Pro-B Natriuret Pep 55284 H EKG Comments: Sinus tachycardia, nonprogression of R-wave anterior precordial lead Impressions: Acute Abdomen Series 03/01/18 18:35 IMPRESSION: Left lower lobe pneumonia. Nonspecific abdomen. Lung Scan-VQ NM 03/07/18 00:00 IMPRESSION: Perfusion images show bilateral heterogeneous activity. Chest X-Ray 03/08/18 00:00 IMPRESSION: Right-sided central line with its tip at the approximate junction of SVC and right atrium. No pneumothorax is seen. Other findings as noted above Assessment & Plan - Diagnosis (1) Cardiomyopathy Qualifiers: Cardiomyopathy type: unspecified Qualified Code(s): I42.9 - Cardiomyopathy , unspecified Is this a current diagnosis for this admission?: Yes (2) Elevated troponin I level Is this a current diagnosis for this admission?: Yes (3) Alcohol abuse Is this a current diagnosis for this admission?: Yes (4) Bipolar disorder Qualifiers: Active/Remission status: remission status unspecified Qualified Code(s): F31.9 - Bipolar disorder, unspecified Is this a current diagnosis for this admission?: Yes (5) COPD (chronic obstructive pulmonary disease) Qualifiers: Emphysema type: unspecified Is this a current diagnosis for this admission?: Yes (6) Tobacco dependence Is this a current diagnosis for this admission?: Yes (7) Elevated brain natriuretic peptide (BNP) level Is this a current diagnosis for this admission?: Yes - Notes Notes: Start patient on entresto and carvedilol, and gradually optimize therapy. Cardiomyopathy: Exact etiology not clear, possibly alcohol related, but could well be ischemic in view of positive troponin I elevation. At this point optimize medical management of CHF. Treat as indicated above and optimize medical therapy. Elevated troponin I: Exact etiology not clear but could be multifactorial including acute hypoxemia, CHF related, cannot rule out ACS completely as patient not able to give any history. Recommend treating with statins, antiplatelet, beta blockers, LAURENT inhibitor/ARB/entresto. Patient will benefit from ischemia workup prior to discharge. Bipolar disorder: Being well managed by hospitalist. COPD: Continue management with bronchodilators, steroids as required. Tobacco dependency: Agree with nicotine patch. Elevated BNP: Most likely related to cardiomyopathy and CHF. Continue to follow. - Time Time Spent: 30 to 50 Minutes - CODE STATUS was discussed, patient remains full code. Surrogate decision-maker unchanged. Multiple medical problems were addressed. More than 50% of the time spent coordinating care, discussing management plans with involved caregivers. Management plans discussed with involved personnels. Medical decision making was of moderate to high complexity , patient's has multiple comorbidities. Medications reviewed and adjusted accordingly: Yes
--- NOTE | 2018-03-08 20:25 | PDOC PROGRESS REPORT ---
Subjective Progress Note for:: 03/08/18 Subjective:: Interim history per previous providers: The patient is a 52-year-old female with a past medical history of bipolar disorder, tobacco dependence, COPD, hepatitis C and alcohol abuse presented with chief complaint of cough, shortness of breath and chest pain. The patient was initially placed on ceftriaxone and Zithromax and for coverage of an community-acquired pneumonia. She was then transitioned to Levaquin and vancomycin based upon previous history of sputum cultures positive for MRSA. Repeat chest x-ray showed progression of her left lower lobe consolidation, and so her Levaquin was discontinued and she was changed to Zosyn with continuation of her vancomycin. Her hemoglobin trended down to 6.8 and she received 1 unit of packed red blood cells with posttransfusion hemoglobin of 9. She continued to receive IV Ativan for agitation and management of her withdrawal symptoms. She was noted to be more lethargic than baseline and so received 1 dose of Romazicon with immediate improvement in her alertness. Her Ativan schedule was decreased slightly. While on Zosyn and vancomycin, she was noted to have an abrupt worsening of her renal function; her Zosyn dose was reduced and her vancomycin placed on hold. The patient was seen on morning rounds. I had received notification from the nursing staff that she had been persistently tachycardic in the 130s and tachypneic in the 40s this morning. She is arousable and oriented to herself but otherwise incoherent and quickly falls back to sleep. She has had minimal IV Ativan in the last 24 hours due to her having received Romazicon the day before for presumed oversedation. At time of assessment, the patient was noted to be awake, alert, oriented to herself, answering questions incoherently and incapable of following directions. She was tachypneic with shallow breaths, accessory muscle use, and grunting. Stat ABG and chest x-ray were ordered. The leading physician was notified of concern for rapidly deconditioning respiratory status and shortly arrived to the bedside. In-depth medication and laboratory review was conducted patient bedside with nursing staff present. Overnight, the [facility] had concern for developing pulmonary embolus. Unfortunately, the patient was unable to complete a VQ scan and due to her renal function CTA was not a viable option. Due to multiple antibiotics, need for maintenance IV fluids, currently transfusing PRBC, and heparin drip nursing requested central line placement. This was placed at the bedside by Dr. Walters with Virgil Partida [employer] assisting. Placement chest x-ray demonstrated the tip to be in the right atrium; the central line was withdrawn approximately 4 cm and resutured in place. Repeat chest x-ray demonstrated appropriate placement. Nursing was updated on the rapidly changing plan of care. The patient was reevaluated midday and this evening. Respirations are slightly improved, she remains tachycardic. Detailed report provided to the [facility] for cross-coverage; the patient remains in guarded condition. Reason For Visit: PNEUMONIA, ETOH WITHDRAWAL Physical Exam Vital Signs: Temp Pulse Resp BP Pulse Ox 98.2 F 122 H 34 H 142/99 H 99 03/08/18 15:33 03/08/18 15:33 03/08/18 15:33 03/08/18 15:33 03/08/18 19:41 Pulse Oximeter Continuous Start: 03/08/18 13: 28 Freq: RTQ4 Status: Active Document 03/08/18 19:41 CMI (Rec: 03/08/18 19:41 CMI [id number]) Pulse Oximetry Assessment Oxygen Saturation (92-100) 99 Oxygen Flow Rate (L/min) 3 Oxygen Delivery Method Nasal Cannula Fraction of Inspired Oxygen (FIO2) 32 Equipment Usage Equipment in Use Continuous SpO2 Machine # 2 Intake & Output 03/07/18 03/08/18 03/09/18 06:59 06:59 06:59 Intake Total 3096.2 3601.2 876.2 Output Total 475 Balance 3096.2 3601.2 401.2 Weight 62.9 kg 65.6 kg General appearance: PRESENT: disheveled, mild distress, thin, well-developed. ABSENT: cooperative Head exam: PRESENT: atraumatic, normocephalic Eye exam: PRESENT: conjunctiva pink, EOMI, PERRLA. ABSENT: scleral icterus Ear exam: PRESENT: normal external ear exam Mouth exam: PRESENT: dry mucosa, tongue midline Neck exam: PRESENT: other - Central line 2 right neck. ABSENT: carotid bruit, JVD, lymphadenopathy, thyromegaly Respiratory exam: PRESENT: accessory muscle use, decreased breath sounds - Bibasilar; L>R, prolonged expiratory phas, rhonchi - Throughout, symmetrical, tachypnea, wheezes - Occasional, other - Grunting; supplemental oxygen at 2 L/ min. ABSENT: rales Cardiovascular exam: PRESENT: +S1, +S2, systolic murmur, tachycardia. ABSENT: diastolic murmur, rubs Pulses: PRESENT: +1 pedal pulses bilateral Vascular exam: PRESENT: normal capillary refill GI/Abdominal exam: PRESENT: normal bowel sounds, soft. ABSENT: distended, guarding, mass, organolmegaly, rebound, tenderness Rectal exam: PRESENT: heme (-) stool Gentrourinary exam: PRESENT: indwelling catheter Extremities exam: PRESENT: other - Currently in soft limb restraints. ABSENT: calf tenderness, clubbing, pedal edema Neurological exam: PRESENT: alert, awake, oriented to person, CN II-XII grossly intact, other - Incoherent, unable to follow commands. ABSENT: oriented to place, oriented to time, oriented to situation, motor sensory deficit Psychiatric exam: PRESENT: agitated. ABSENT: homicidal ideation, suicidal ideation Skin exam: PRESENT: dry, intact, warm, other - Scattered ecchymosis. ABSENT: cyanosis, rash Results Laboratory Results: 03/08/18 17:30 03/08/18 17:30 03/08/18 03/08/18 03/08/18 05:00 05:00 06:33 WBC 16.2 H RBC 2.38 L Hgb 7.9 L Hct 23.9 L MCV 101 H MCH 33.4 MCHC 33.2 RDW 17.6 H Plt Count 373 Seg Neutrophils % Not Reportable Lymphocytes % Not Reportable Monocytes % Not Reportable Eosinophils % Not Reportable Basophils % Not Reportable Absolute Neutrophils Not Reportable Absolute Lymphocytes Not Reportable Absolute Monocytes Not Reportable Absolute Eosinophils Not Reportable Absolute Basophils Not Reportable Carbonic Acid HCO3/H2CO3 Ratio ABG pH ABG pCO2 ABG pO2 ABG HCO3 ABG O2 Saturation ABG Base Excess FiO2 Sodium 144.0 Potassium 3.8 Chloride 113 H Carbon Dioxide 19 L Anion Gap 12 BUN 14 Creatinine 2.89 H Est GFR ( Amer) 21 L Est GFR (Non-Af Amer) 17 L Glucose 83 Lactic Acid 1.2 Calcium 7.6 L Phosphorus Magnesium Total Bilirubin 1.0 AST 26 ALT 23 Alkaline Phosphatase 78 Ammonia Total Protein 5.3 L Albumin 2.3 L Amylase Lipase Stool Occult Blood Blood Type Antibody Screen 03/08/18 03/08/18 03/08/18 06:33 11:11 12:19 WBC RBC Hgb Hct MCV MCH MCHC RDW Plt Count Seg Neutrophils % Lymphocytes % Monocytes % Eosinophils % Basophils % Absolute Neutrophils Absolute Lymphocytes Absolute Monocytes Absolute Eosinophils Absolute Basophils Carbonic Acid 0.85 L HCO3/H2CO3 Ratio 19:1 ABG pH 7.39 ABG pCO2 28.3 L ABG pO2 92.4 ABG HCO3 16.8 L ABG O2 Saturation 97.2 ABG Base Excess -7.3 FiO2 ROOM AIR Sodium Potassium Chloride Carbon Dioxide Anion Gap BUN Creatinine Est GFR ( Amer) Est GFR (Non-Af Amer) Glucose Lactic Acid Calcium Phosphorus Magnesium Total Bilirubin AST ALT Alkaline Phosphatase Ammonia Total Protein Albumin Amylase Lipase Stool Occult Blood NEGATIVE Blood Type O POSITIVE Antibody Screen NEGATIVE 03/08/18 03/08/18 03/08/18 12:38 12:38 12:38 WBC RBC Hgb Hct MCV MCH MCHC RDW Plt Count Seg Neutrophils % Lymphocytes % Monocytes % Eosinophils % Basophils % Absolute Neutrophils Absolute Lymphocytes Absolute Monocytes Absolute Eosinophils Absolute Basophils Carbonic Acid HCO3/H2CO3 Ratio ABG pH ABG pCO2 ABG pO2 ABG HCO3 ABG O2 Saturation ABG Base Excess FiO2 Sodium 144.1 Potassium 4.1 Chloride 113 H Carbon Dioxide 15 L Anion Gap 16 BUN 15 Creatinine 2.83 H Est GFR ( Amer) 21 L Est GFR (Non-Af Amer) 17 L Glucose 97 Lactic Acid 1.6 Calcium 7.9 L Phosphorus 5.5 H Magnesium 1.5 L Total Bilirubin AST ALT Alkaline Phosphatase Ammonia < 8.7 L Total Protein Albumin Amylase < 30 L Lipase 39.0 Stool Occult Blood Blood Type Antibody Screen 03/08/18 03/08/18 03/08/18 15:18 17:30 17:30 WBC 21.0 H RBC 2.98 L Hgb 9.7 L Hct 29.4 L MCV 98 H MCH 32.5 MCHC 33.1 RDW 18.5 H Plt Count 389 Seg Neutrophils % Not Reportable Lymphocytes % Not Reportable Monocytes % Not Reportable Eosinophils % Not Reportable Basophils % Not Reportable Absolute Neutrophils Not Reportable Absolute Lymphocytes Not Reportable Absolute Monocytes Not Reportable Absolute Eosinophils Not Reportable Absolute Basophils Not Reportable Carbonic Acid 0.88 L HCO3/H2CO3 Ratio 19:1 ABG pH 7.38 ABG pCO2 29.3 L ABG pO2 64.3 L ABG HCO3 17.1 L ABG O2 Saturation 92.7 L ABG Base Excess -7.6 FiO2 ROOM AIR Sodium 143.8 Potassium 3.4 L Chloride 111 H Carbon Dioxide 17 L Anion Gap 16 BUN 17 Creatinine 2.93 H Est GFR ( Amer) 20 L Est GFR (Non-Af Amer) 17 L Glucose 101 Lactic Acid Calcium 8.0 L Phosphorus Magnesium Total Bilirubin AST ALT Alkaline Phosphatase Ammonia Total Protein Albumin Amylase Lipase Stool Occult Blood Blood Type Antibody Screen 03/08/18 03/08/18 12:38 18:00 CK-MB (CK-2) 4.01 Troponin I 0.880 0.868 NT-Pro-B Natriuret Pep 44342 H Impressions: Acute Abdomen Series 03/01/18 18:35 IMPRESSION: Left lower lobe pneumonia. Nonspecific abdomen. Lung Scan-VQ NM 03/07/18 00:00 IMPRESSION: Perfusion images show bilateral heterogeneous activity. Chest X-Ray 03/08/18 00:00 IMPRESSION: Right-sided central line with its tip at the approximate junction of SVC and right atrium. No pneumothorax is seen. Other findings as noted above Assessment & Plan - Diagnosis (1) Left lower lobe pneumonia Qualifiers: Pneumonia type: due to unspecified organism Qualified Code(s): J18.1 - Lobar pneumonia, unspecified organism Is this a current diagnosis for this admission?: Yes Plan: The patient was initially placed on azithromycin and ceftriaxone for community- acquired pneumonia; this was advanced to Levaquin and vancomycin due to history of MRSA; she continued to have worsening consolidation, therefore Levaquin was discontinued and Zosyn initiated. She then developed acute renal failure, presumed ATN secondary to antibiotics, and therefore her Zosyn dose was decreased and vancomycin placed on held. She continued to have worsening consolidation by x-ray and clinical exam. Therefore the Zosyn was discontinued and the patient was placed on meropenem. Today, the patient is found to have tachycardia, tachypnea, fever of 101.2 overnight. Blood cultures (03/02/18) have no growth at 5 days. Repeat blood and urine cultures obtained today are pending. Legionella is pending. Respiratory therapy is ordered to obtain a sputum culture; this is not yet been obtained. Repeat chest x-ray today demonstrated dense consolidation in the left lower lobe worrisome for aspiration pneumonia with bandlike scarring in the left upper lobe in the area of the cavitary infiltration seen on CT chest 06/2017, with a small left pleural effusion. Infectious disease was consulted; meropenem is continued for anaerobic and Pseudomonas coverage. The patient is placed on Zyvox for MRSA coverage after reviewing previous sputum culture results from June 2017 is demonstrating multiple resistances including meropenem. Levaquin is resumed pending Legionella results. The patient is provided supplemental oxygen as needed to maintain oxygen saturations. Scheduled and as needed nebulizer treatments are provided. (2) Acute respiratory failure Is this a current diagnosis for this admission?: Yes Plan: Secondary to left lower lobe pneumonia, aspiration pneumonia, and CHF exacerbation. The patient is also suspected to have a pulmonary embolus (d- dimer >7), however, VQ scan was unable to confirm and the patient is not a candidate for CTA. We will optimize CHF management. Heparin drip for presumed PE. Cultures and antibiotics as outlined elsewhere. Supplemental oxygen as needed to maintain saturation; monitoring closely for need for noninvasive ventilator support versus intubation. (3) Acute kidney injury Is this a current diagnosis for this admission?: Yes Plan: On admission, patient had a creatinine of 0.59; developed acute renal injury secondary to vancomycin toxicity (thank trough 44.9). Creatinine is now 2.93. Vancomycin has been discontinued. Avoiding nephrotoxic medications as able. Optimizing CHF management. We will monitor with serial chemistries. (4) Anemia Qualifiers: Anemia type: unspecified type Qualified Code(s): D64.9 - Anemia, unspecified Is this a current diagnosis for this admission?: Yes Plan: Multifactorial; likely chronic secondary to iron deficiency, malnutrition, alcohol dependence/abuse. There is also some concern for ongoing GI losses. Patient was admitted with a hemoglobin of 8.9, trended down to 6.9. Patient received 1 unit PRBC with posttransfusion hemoglobin of 9.0. This again trended downward to 7.9. Today she was transfused another unit with posttransfusion hemoglobin of 9.7. Occult stool is negative 1. Urinalysis is negative for hematuria. Unfortunately, the patient is now on a heparin drip for presumed pulmonary embolus. Will need to monitor hemoglobin closely and obtain repeat stools. We will check CBC every 6 hours. (5) Aspiration pneumonia Is this a current diagnosis for this admission?: Yes Plan: Cultures and antibiotics as above. Remaining management as above. (6) Alcohol dependence Is this a current diagnosis for this admission?: Yes Plan: Thiamine, folic acid, multivitamin daily. Supportive care. Fall, aspiration, seizure precautions. Discharge planning has been consulted. (7) Acute encephalopathy Is this a current diagnosis for this admission?: Yes Plan: Multifactorial secondary to meds, alcohol withdrawal, and infection (left lower lobe pneumonia/aspiration pneumonia). Supportive care; provide for patient safety. Fall, seizure, aspiration precautions. - Time Time Spent with patient: [id number] time 90 minutes; at least 60 minutes were at the bedside providing direct patient care (assist with central line placement, repositioning of central line, multiple assessments), remaining time spent in counseling and coordination of care. Medications reviewed and adjusted accordingly: Yes
[2018-03-08] MEDS ORDERED: CLINDAMYCIN 600 MG/D5W RTU 600 MG/50 ML RTUPB IV SCH (22:00)
[2018-03-08] MEDS: FUROSEMIDE INJ/PF 20 MG/2 ML SDV IV SCH (22:39)
[2018-03-08] MEDS: CARVEDILOL 3.125 MG TABLET PO SCH (22:39)
[2018-03-08] MEDS: SACUBITRIL/VALSARTAN 24 MG/26 MG TABLET PO SCH (22:40)
[2018-03-08] MEDS: MEROPENEM 1 GM in NORMAL SALINE 50 ML IV SCH (22:41)
[2018-03-08] MEDS: LINEZOLID 600 MG/300 ML RTUPB IV SCH (22:41)
[2018-03-08] MEDS: IPRATROPIUM/ALBUTEROL 0.5-2.5 MG/3 ML AMPUL NEB SCH (23:56)
[2018-03-09 00:39] LABS: HEMATOCRIT 28.4 % (36.0-47.0); HEMOGLOBIN 9.5 g/dL (12.0-15.5); MEAN CORPUSCULAR HEMOGLOBIN 32.3 pg (27.0-33.4); MEAN CORPUSCULAR HGB CONC 33.4 g/dL (32.0-36.0); MEAN CORPUSCULAR VOLUME 97 fl (80-97); PLATELET COUNT 401 10^3/uL (150-450); RED BLOOD COUNT 2.94 10^6/uL (3.72-5.28); RED CELL DISTRIBUTION WIDTH 18.7 % (11.5-14.0); WHITE BLOOD COUNT 21.9 10^3/uL (4.0-10.5)
[2018-03-09 01:06] LABS: ANION GAP 15 (5-19); BLOOD UREA NITROGEN 19 mg/dL (7-20); CALCIUM 7.3 mg/dL (8.4-10.2); CARBON DIOXIDE 20 mmol/L (22-30); CHLORIDE 108 mmol/L (98-107); GLUCOSE 139 mg/dL (75-110); SODIUM 143.4 mmol/L (137-145)
[2018-03-09 01:13] LABS: POTASSIUM 2.7 mmol/L (3.6-5.0)
[2018-03-09] MEDS: POTASSIUM CHLORIDE 10 MEQ CAPSULE.ER PO SCH ×3 (02:05→05:33)
[2018-03-09] MEDS ORDERED: MAGNESIUM SULFATE 2 GM/50 ML RTUPB IV ONE (03:00)
[2018-03-09] MEDS: HEPARIN SOD (PORCINE) 1,000 UNIT/ML 10 ML VIAL IV PRN ×2 (03:14→11:26)
[2018-03-09] MEDS: MAGNESIUM SULFATE 1 GM/D5W 100 ML IV SCH ×2 (03:16→04:43)
[2018-03-09] MEDS: IPRATROPIUM/ALBUTEROL 0.5-2.5 MG/3 ML AMPUL NEB SCH ×5 (04:33→19:48)
[2018-03-09] MEDS: MEROPENEM 1 GM in NORMAL SALINE 50 ML IV SCH ×2 (05:32→13:32)
[2018-03-09] MEDS: PANTOPRAZOLE SODIUM 40 MG VIAL IV SCH ×2 (05:35→17:42)
[2018-03-09 05:39] LABS: HEPATITIS A AB IGM Negative (Negative); HEPATITIS B CORE AB IGM Negative (Negative); HEPATITS B SURFACE ANTIGEN Negative (Negative)
[2018-03-09] MEDS: HEPARIN SODIUM,PORCINE/D5W 25,000 UNIT/250 ML RTUINJ IV PRN (06:06)
[2018-03-09] MEDS: DEXTROSE 5%-WATER 1000 ML 1,000 ML with SODIUM BICARBONATE 150 MEQ IV PRN ×2 (07:36)
[2018-03-09 07:45] LABS: HEPATITIS C VIRUS ANTIBODY >11.0 s/co ratio (0.0-0.9)
[2018-03-09 08:46] LABS: HEMATOCRIT 30.7 % (36.0-47.0); HEMOGLOBIN 10.2 g/dL (12.0-15.5); MEAN CORPUSCULAR HEMOGLOBIN 32.4 pg (27.0-33.4); MEAN CORPUSCULAR HGB CONC 33.3 g/dL (32.0-36.0); MEAN CORPUSCULAR VOLUME 98 fl (80-97); PLATELET COUNT 424 10^3/uL (150-450); RED BLOOD COUNT 3.15 10^6/uL (3.72-5.28); RED CELL DISTRIBUTION WIDTH 18.5 % (11.5-14.0); WHITE BLOOD COUNT 24.5 10^3/uL (4.0-10.5)
[2018-03-09 09:03] LABS: ANION GAP 11 (5-19); BLOOD UREA NITROGEN 17 mg/dL (7-20); CARBON DIOXIDE 21 mmol/L (22-30); CHLORIDE 110 mmol/L (98-107); GLUCOSE 106 mg/dL (75-110)
[2018-03-09 09:15] LABS: CALCIUM 6.4 mg/dL (8.4-10.2); POTASSIUM 2.9 mmol/L (3.6-5.0)
[2018-03-09] MEDS ORDERED: CALCIUM GLUCONATE 1,000 MG in DEXTROSE 5%-WATER 50 ML IV ONE (09:19)
[2018-03-09] MEDS: SACUBITRIL/VALSARTAN 24 MG/26 MG TABLET PO SCH ×2 (09:49→17:16)
[2018-03-09] MEDS: CARVEDILOL 3.125 MG TABLET PO SCH (09:49)
[2018-03-09] MEDS: GUAIFENESIN 600 MG TABLET.SA PO SCH (09:50)
[2018-03-09] MEDS: FUROSEMIDE INJ/PF 20 MG/2 ML SDV IV SCH (09:50)
[2018-03-09] MEDS ORDERED: FOLIC ACID 1 MG TABLET PO SCH (10:00)
[2018-03-09] MEDS ORDERED: MULTIVITAMINS W-IRON TABLET, CHEWABLE PO SCH (10:00)
[2018-03-09] MEDS ORDERED: THIAMINE HCL 100 MG TABLET PO SCH (10:00)
[2018-03-09] MEDS ORDERED: ASPIRIN 81 MG TABLET, CHEWABLE PO SCH (10:00)
[2018-03-09] MEDS ORDERED: LEVOFLOXACIN 750 MG/D5W RTU 750 MG/150 ML RTUPB IV SCH (10:00)
[2018-03-09] MEDS ORDERED: MAGNESIUM SULFATE/D5W 1 GM/100 ML RTUPB IV ONE (10:00)
[2018-03-09] MEDS ORDERED: CALCIUM GLUCONATE 1000 MG/10 ML INJ IV ONE (10:30)
[2018-03-09] MEDS ORDERED: DIAZEPAM 5 MG TABLET PO PRN (11:15)
[2018-03-09] MEDS: POTASSI CL 20 MEQ/50 ML RIDER 20 MEQ/50 ML RTUPB IV SCH ×3 (11:26→16:18)
[2018-03-09] MEDS: LINEZOLID 600 MG/300 ML RTUPB IV SCH (11:47)
--- NOTE | 2018-03-09 12:54 | PDOC PROGRESS REPORT ---
Subjective Progress Note for:: 03/09/18 Subjective:: Patient seems to be doing somewhat better and is showing some improvement in general status. Patient in restrained, laying comfortably in bed, no complaint verbalized. Patient not noted to have fever chills. Patient does not seem to be in any other significant discomfort. Patient is maintaining sinus rhythm with intermittent sinus tachycardia. System review: No significant changes Medications reviewed. Reason For Visit: PNEUMONIA, ETOH WITHDRAWAL Physical Exam Vital Signs: Temp Pulse Resp BP Pulse Ox 97.6 F 100 16 84/66 L 99 03/09/18 12:24 03/09/18 12:24 03/09/18 12:24 03/09/18 12:24 03/09/18 12:24 Pulse Oximeter Continuous Start: 03/08/18 13: 28 Freq: RTQ4 Status: Active Document 03/09/18 11:51 [facility] (Rec: 03/09/18 12:01 [facility] [id number]) Pulse Oximetry Assessment Oxygen Saturation (92-100) 95 Oxygen Flow Rate (L/min) 2 Oxygen Delivery Method Nasal Cannula Equipment Usage Equipment in Use Continuous SpO2 Machine # [id number] Intake & Output 03/08/18 03/09/18 03/10/18 06:59 06:59 06:59 Intake Total 3601.2 2775.2 220 Output Total 1675 Balance 3601.2 1100.2 220 Weight 65.6 kg 63.2 kg Exam: GENERAL: well-nourished and in no acute distress. Alert, orientation could not be checked. Patient noted to be in restraints HEAD: Atraumatic, normocephalic. EYES: Pupils equal round and reactive to light, extraocular movements intact, sclera anicteric, conjunctiva are normal. ENT: TMs normal, nares patent, oropharynx clear without exudates. Moist mucous membranes. No oral ulcerations or bleeding gums noted NECK: supple without lymphadenopathy. Trachea is central. No cervical or axillary lymphadenopathy noted. Carotids are 2+, JVD WNL LUNGS: Respiration seems nonlabored, no significant accessory muscle action noted. Breath sounds clear to auscultation bilaterally and equal noted. No wheezes rales or rhonchi noted. No significant dullness noted on percussion. CHEST: Palpation of the chest wall shows no significant chest wall tenderness. HEART: [employer] [employer], No PSH, 1/6 SHILPA aortic area, 1/6 l[place]o systolic murmur mitral area, no rubs, no gallops. ABDOMEN: Soft, no significant tenderness appreciated, normoactive bowel sounds. No guarding, no rebound. No rigidity noted . No masses appreciated. EXTREMITIES: Pedal pulses are 1-2+, no calf tenderness noted. No clubbing or cyanosis. 1+ pedal edema noted NEUROLOGICAL: Patient unable to cooperate fully with neurological exam but is noted to move all 4 extremities, no facial asymmetry noted. PSYCH: Mood and judgment could not be checked. SKIN: No significant ecchymosis, skin is noted to be warm. MUSCULOSKELETAL EXAM: No significant acute joint swelling noted. Results Laboratory Results: 03/09/18 08:00 03/09/18 08:00 03/08/18 03/08/18 03/08/18 06:33 12:19 12:38 WBC RBC Hgb Hct MCV MCH MCHC RDW Plt Count Seg Neutrophils % Lymphocytes % Monocytes % Eosinophils % Basophils % Absolute Neutrophils Absolute Lymphocytes Absolute Monocytes Absolute Eosinophils Absolute Basophils Carbonic Acid HCO3/H2CO3 Ratio ABG pH ABG pCO2 ABG pO2 ABG HCO3 ABG O2 Saturation ABG Base Excess FiO2 Sodium 144.1 Potassium 4.1 Chloride 113 H Carbon Dioxide 15 L Anion Gap 16 BUN 15 Creatinine 2.83 H Est GFR ( Amer) 21 L Est GFR (Non-Af Amer) 17 L Glucose 97 Lactic Acid Calcium 7.9 L Phosphorus 5.5 H Magnesium 1.5 L Ammonia Amylase < 30 L Lipase 39.0 Stool Occult Blood NEGATIVE Blood Type O POSITIVE Antibody Screen NEGATIVE 03/08/18 03/08/18 03/08/18 12:38 12:38 15:18 WBC RBC Hgb Hct MCV MCH MCHC RDW Plt Count Seg Neutrophils % Lymphocytes % Monocytes % Eosinophils % Basophils % Absolute Neutrophils Absolute Lymphocytes Absolute Monocytes Absolute Eosinophils Absolute Basophils Carbonic Acid 0.88 L HCO3/H2CO3 Ratio 19:1 ABG pH 7.38 ABG pCO2 29.3 L ABG pO2 64.3 L ABG HCO3 17.1 L ABG O2 Saturation 92.7 L ABG Base Excess -7.6 FiO2 ROOM AIR Sodium Potassium Chloride Carbon Dioxide Anion Gap BUN Creatinine Est GFR ( Amer) Est GFR (Non-Af Amer) Glucose Lactic Acid 1.6 Calcium Phosphorus Magnesium Ammonia < 8.7 L Amylase Lipase Stool Occult Blood Blood Type Antibody Screen 03/08/18 03/08/18 03/09/18 17:30 17:30 00:10 WBC 21.0 H RBC 2.98 L Hgb 9.7 L Hct 29.4 L MCV 98 H MCH 32.5 MCHC 33.1 RDW 18.5 H Plt Count 389 Seg Neutrophils % Not Reportable Lymphocytes % Not Reportable Monocytes % Not Reportable Eosinophils % Not Reportable Basophils % Not Reportable Absolute Neutrophils Not Reportable Absolute Lymphocytes Not Reportable Absolute Monocytes Not Reportable Absolute Eosinophils Not Reportable Absolute Basophils Not Reportable Carbonic Acid HCO3/H2CO3 Ratio ABG pH ABG pCO2 ABG pO2 ABG HCO3 ABG O2 Saturation ABG Base Excess FiO2 Sodium 143.8 143.4 Potassium 3.4 L 2.7 L* Chloride 111 H 108 H Carbon Dioxide 17 L 20 L Anion Gap 16 15 BUN 17 19 Creatinine 2.93 H 2.91 H Est GFR ( Amer) 20 L 20 L Est GFR (Non-Af Amer) 17 L 17 L Glucose 101 139 H Lactic Acid Calcium 8.0 L 7.3 L Phosphorus Magnesium Ammonia Amylase Lipase Stool Occult Blood Blood Type Antibody Screen 03/09/18 03/09/18 03/09/18 00:10 01:30 06:00 WBC 21.9 H Cancelled RBC 2.94 L Cancelled Hgb 9.5 L Cancelled Hct 28.4 L Cancelled MCV 97 Cancelled MCH 32.3 Cancelled MCHC 33.4 Cancelled RDW 18.7 H Cancelled Plt Count 401 Cancelled Seg Neutrophils % Cancelled Lymphocytes % Cancelled Monocytes % Cancelled Eosinophils % Cancelled Basophils % Cancelled Absolute Neutrophils Cancelled Absolute Lymphocytes Cancelled Absolute Monocytes Cancelled Absolute Eosinophils Cancelled Absolute Basophils Cancelled Carbonic Acid HCO3/H2CO3 Ratio ABG pH ABG pCO2 ABG pO2 ABG HCO3 ABG O2 Saturation ABG Base Excess FiO2 Sodium Potassium Chloride Carbon Dioxide Anion Gap BUN Creatinine Est GFR ( Amer) Est GFR (Non-Af Amer) Glucose Lactic Acid Calcium Phosphorus Magnesium 1.4 L Ammonia Amylase Lipase Stool Occult Blood Blood Type Antibody Screen 03/09/18 03/09/18 03/09/18 06:00 08:00 08:00 WBC 24.5 H RBC 3.15 L Hgb 10.2 L Hct 30.7 L MCV 98 H MCH 32.4 MCHC 33.3 RDW 18.5 H Plt Count 424 Seg Neutrophils % Lymphocytes % Monocytes % Eosinophils % Basophils % Absolute Neutrophils Absolute Lymphocytes Absolute Monocytes Absolute Eosinophils Absolute Basophils Carbonic Acid HCO3/H2CO3 Ratio ABG pH ABG pCO2 ABG pO2 ABG HCO3 ABG O2 Saturation ABG Base Excess FiO2 Sodium Cancelled 142.0 Potassium Cancelled 2.9 L* Chloride Cancelled 110 H Carbon Dioxide Cancelled 21 L Anion Gap Cancelled 11 BUN Cancelled 17 Creatinine Cancelled 2.42 H Est GFR ( Amer) Cancelled 25 L Est GFR (Non-Af Amer) Cancelled 21 L Glucose Cancelled 106 Lactic Acid Calcium Cancelled 6.4 L* Phosphorus Magnesium Cancelled 1.9 Ammonia Amylase Lipase Stool Occult Blood Blood Type Antibody Screen 03/08/18 03/08/18 03/09/18 12:38 18:00 00:10 CK-MB (CK-2) 4.01 Troponin I 0.880 0.868 1.140 NT-Pro-B Natriuret Pep 37567 H 03/09/18 08:00 CK-MB (CK-2) Troponin I NT-Pro-B Natriuret Pep 79392 H EKG Comments: Telemetry shows sinus rhythm with intermittent sinus tachycardia Impressions: Acute Abdomen Series 03/01/18 18:35 IMPRESSION: Left lower lobe pneumonia. Nonspecific abdomen. Lung Scan-VQ NM 03/07/18 00:00 IMPRESSION: Perfusion images show bilateral heterogeneous activity. Chest X-Ray 03/08/18 00:00 IMPRESSION: Right-sided central line with its tip at the approximate junction of SVC and right atrium. No pneumothorax is seen. Other findings as noted above Assessment & Plan - Diagnosis (1) Cardiomyopathy Qualifiers: Cardiomyopathy type: unspecified Qualified Code(s): I42.9 - Cardiomyopathy , unspecified Is this a current diagnosis for this admission?: Yes (2) Elevated troponin I level Is this a current diagnosis for this admission?: Yes (3) Alcohol abuse Is this a current diagnosis for this admission?: Yes (4) Bipolar disorder Qualifiers: Active/Remission status: remission status unspecified Qualified Code(s): F31.9 - Bipolar disorder, unspecified Is this a current diagnosis for this admission?: Yes (5) COPD (chronic obstructive pulmonary disease) Qualifiers: Emphysema type: unspecified Is this a current diagnosis for this admission?: Yes (6) Tobacco dependence Is this a current diagnosis for this admission?: Yes (7) Elevated brain natriuretic peptide (BNP) level Is this a current diagnosis for this admission?: Yes (8) Hypokalemia Is this a current diagnosis for this admission?: Yes - Notes Notes: Continue entresto therapy, carvedilol therapy, started patient on spironolactone because of severe hypokalemia. Will optimize these regimen gradually. Will recommend heparin for maximum of 72-96 hours for elevated troponin I. Overall prognosis is guarded. Cardiomyopathy: Exact etiology not clear, possibly alcohol related, but could well be ischemic in view of positive troponin I elevation. At this point optimize medical management of CHF. Treat as indicated above and optimize medical therapy. Elevated troponin I: Exact etiology not clear but could be multifactorial including acute hypoxemia, CHF related, cannot rule out ACS completely as patient not able to give any history. Recommend treating with statins, antiplatelet, beta blockers, LAURENT inhibitor/ARB/entresto. Patient will benefit from ischemia workup prior to discharge. Bipolar disorder: Being well managed by hospitalist. COPD: Continue management with bronchodilators, steroids as required. Tobacco dependency: Agree with nicotine patch. Elevated BNP: Most likely related to cardiomyopathy and CHF. Continue to follow. - Time Time with patient: Greater than 35 minutes - CODE STATUS was discussed, patient remains full code. Surrogate decision-maker unchanged. Multiple medical problems were addressed. More than 50% of the time spent coordinating care, discussing management plans with involved caregivers. Management plans discussed with involved personnels. Medical decision making was of moderate to high complexity, patient's has multiple comorbidities. Medications reviewed and adjusted accordingly: Yes
[2018-03-09] MEDS ORDERED: SPIRONOLACTONE 25 MG TABLET PO SCH (14:00)
[2018-03-09 17:11] VITALS: BP 88/63
--- NOTE | 2018-03-09 17:28 | PDOC TRANSFER SUMMARY ---
General Admission Date/PCP: 03/01/18 21:21 Admission Date: 04/01/18 Transfer Date: 03/09/18 Accepting Facility: [facility] Accepting Physician: Dr. Virgil Parr Resuscitation Status: Full Code - Transfer Diagnosis (1) Pneumonia Is this a current diagnosis for this admission?: Yes Diagnosis Summary: The patient was initially placed on azithromycin and ceftriaxone for community- acquired pneumonia; this was advanced to Levaquin and vancomycin due to history of MRSA; she continued to have worsening consolidation, therefore Levaquin was discontinued and Zosyn initiated. She then developed acute renal failure, presumed ATN secondary to antibiotics, and therefore her Zosyn dose was decreased and vancomycin placed on held. She continued to have worsening consolidation by x-ray and clinical exam. Therefore the Zosyn was discontinued and the patient was placed on meropenem. Yesterday, the patient was found to have tachycardia, tachypnea, fever of 101.2 overnight. Blood cultures (03/02/18) have no growth at 5 days. Repeat blood and urine cultures obtained today are pending. Legionella is pending. Respiratory therapy is ordered to obtain a sputum culture; this is not yet been obtained. Repeat chest x-ray today demonstrated dense consolidation in the left lower lobe worrisome for aspiration pneumonia with bandlike scarring in the left upper lobe in the area of the cavitary infiltration seen on CT chest 06/2017, with a small left pleural effusion. Infectious disease was consulted (Dr. Guero Ng); meropenem is continued for anaerobic and Pseudomonas coverage. The patient is placed on Zyvox for MRSA coverage after reviewing previous sputum culture results from June 2017 is demonstrating multiple resistances including meropenem. Levaquin is resumed pending Legionella results. (2) Acute respiratory failure Is this a current diagnosis for this admission?: Yes Diagnosis Summary: Secondary to left lower lobe pneumonia, aspiration pneumonia, and CHF exacerbation. The patient is also suspected to have a pulmonary embolus (d- dimer >7), however, VQ scan was unable to confirm and the patient is not a candidate for CTA. Optimize CHF management. Heparin drip for presumed PE. Cultures and antibiotics as outlined above Supplemental oxygen as needed to maintain saturation; monitoring closely for need for noninvasive ventilator support versus intubation. (3) Anemia Is this a current diagnosis for this admission?: Yes Diagnosis Summary: Multifactorial; likely chronic secondary to iron deficiency, malnutrition, alcohol dependence/abuse. There is also some concern for ongoing GI losses. Patient was admitted with a hemoglobin of 8.9, trended down to 6.9. Patient received 1 unit PRBC with posttransfusion hemoglobin of 9.0. This again trended downward to 7.9. Today she was transfused another unit with posttransfusion hemoglobin of 9.7. Occult stool is negative 1. Urinalysis is negative for hematuria. Unfortunately, the patient is now on a heparin drip for presumed pulmonary embolus. Will need to monitor hemoglobin closely and obtain repeat stools. (4) Acute kidney injury Is this a current diagnosis for this admission?: Yes Diagnosis Summary: On admission, patient had a creatinine of 0.59; developed acute renal injury secondary to vancomycin toxicity (vanc trough 44.9). Creatinine is now 2.42 Vancomycin has been discontinued. (5) Acute encephalopathy Is this a current diagnosis for this admission?: Yes Diagnosis Summary: Likely multifactoral: ETOH abuse and infection (6) Alcohol abuse Is this a current diagnosis for this admission?: Yes Diagnosis Summary: History of heavy ETOH use and withdrawal Daily thiamine, folate and MVI Scheduled PO valium and PRN IV ativan (7) Elevated brain natriuretic peptide (BNP) level Is this a current diagnosis for this admission?: Yes Diagnosis Summary: SEE BELOW (8) Elevated troponin I level Is this a current diagnosis for this admission?: Yes Diagnosis Summary: SEE BELOW (9) Hypocalcemia Is this a current diagnosis for this admission?: Yes (10) Hypokalemia Is this a current diagnosis for this admission?: Yes - Transfer Medications Home Medications: Aspirin/Acetaminophen/Caffeine [Goody's Ex-Str Powder Packet] 1 pkt PO DAILY PRN 03/01/18 Diphenhydramine HCl [Benadryl 25 mg Capsule] 50 mg PO DAILY 03/01/18 Ranitidine HCl [Zantac] 300 mg PO DAILY 03/01/18 Transfer Medications: Current Medications Acetaminophen (Tylenol 325 Mg Tablet) 650 mg PO Q4HP PRN PRN Reason: pain or temp greater than 101F Stop: 03/31/18 22:26 Last Admin: 03/07/18 19:36 Dose: 650 mg Acetaminophen (Tylenol 650 Mg Supp) 650 mg [place] Q4HP PRN PRN Reason: PAIN OR FEVER Stop: 04/06/18 19:56 Last Admin: 03/07/18 20:32 Dose: 650 mg Albuterol/Ipratropium (Duoneb 3 Ml Ampul) 3 ml NEB RTQ4 [facility] Stop: 04/08/18 00:00 Last Admin: 03/09/18 11:51 Dose: 3 ml Aspirin (Aspirin 81 Mg Chewable Tablet) 81 mg PO DAILY [facility] Stop: 04/08/18 09:59 Last Admin: 03/09/18 09:49 Dose: 81 mg Atorvastatin Calcium (Lipitor 10 Mg Tablet) 10 mg PO QHS [facility] Stop: 04/08/18 21:59 Carvedilol (Coreg 3.125 Mg Tablet) 3.125 mg PO Q12 [facility] Stop: 04/07/18 21:59 Last Admin: 03/09/18 09:49 Dose: 3.125 mg Dextrose (Dextrose Inj 50% Syringe (25 Gm/50 Ml)) 25 gm IV PRN PRN; Protocol PRN Reason: See Label Comments Stop: 04/04/18 14:24 Dextrose (Dextrose Inj 50% Syringe (25 Gm/50 Ml)) 12.5 gm IV PRN PRN; Protocol PRN Reason: FOR BG 50-69 IN ALERT PATIENT Stop: 04/04/18 14:24 Diazepam (Valium 5 Mg Tablet) 5 mg PO Q8HP PRN PRN Reason: ANXIETY/AGITATION Stop: 03/16/18 11:14 Folic Acid (Folvite 1 Mg Tablet) 1 mg PO DAILY [facility] Stop: 04/08/18 09:59 Last Admin: 03/09/18 09:50 Dose: 1 mg Furosemide (Lasix Inj/Pf 20 Mg/2 Ml Sdv) 20 mg IV Q12 [facility] Stop: 04/07/18 21:59 Last Admin: 03/09/18 09:50 Dose: Not Given Glucagon (Glucagen Inj 1 Mg Vial) 1 mg SUBCUT PRN PRN; Protocol PRN Reason: Evaluate for BG < 70 Stop: 04/04/18 14:24 Glucose (Glutose 40% Gel 15 Gm Tube) 15 gm PO PRN PRN; Protocol PRN Reason: For BG 50-69 in Alert Patient Stop: 04/04/18 14:24 Glucose (Glutose 40% Gel 15 Gm Tube) 30 gm PO PRN PRN; Protocol PRN Reason: FOR BG < 50 IN ALERT PATIENT Stop: 04/04/18 14:24 Guaifenesin (Mucinex Sr 600 Mg Tablet.Sa) 600 mg PO Q12 [facility] Stop: 04/01/18 09:59 Last Admin: 03/09/18 09:50 Dose: 600 mg Heparin Sodium (Porcine) (Heparin Inj 1,000 Unit/Ml 10 Ml Vial) 0 - 15,000 unit IV .BOLUS PER PROTOCOL PRN; Protocol PRN Reason: RESPOND TO aPTT VALUES Stop: 04/07/18 08:21 Last Admin: 03/09/18 11:26 Dose: 5,000 units Heparin Sodium/Dextrose (Heparin Rtu 25,000 Unit/250 Ml D5w Premix) 25,000 unit in 250 mls @ 0 mls/hr IV .CONTINUOUS PRN; Protocol; Titrate PRN Reason: THIS MED IS NOT "PRN" Stop: 04/07/18 06:29 Last Titration: 03/09/18 11:27 Dose: 15.67 mls/hr, 15.67 mls/hr Sodium Bicarbonate 150 meq/ (Dextrose) 1,000 mls @ 75 mls/hr IV CONTINUOUS PRN PRN Reason: THIS MED IS NOT "PRN" Stop: 04/07/18 13:53 Last Admin: 03/09/18 07:36 Dose: 75 mls/hr, 75 mls/hr Linezolid (Zyvox Rtu 600 Mg/300 Ml Premixed) 600 mg in 300 mls @ 300 mls/hr IV Q12 [facility] Stop: 03/15/18 21:59 Last Infusion: 03/09/18 13:39 Dose: Infused Meropenem 1 gm/ Sodium (Chloride) 50 mls @ 100 mls/hr IV Q8 [facility] Stop: 03/15/18 21:59 Last Admin: 03/09/18 13:32 Dose: 0 mg/hr, 100 mls/hr Levofloxacin/Dextrose (Levaquin Rtu 750 Mg/D5w 150 Ml Premix) 750 mg in 150 mls @ 100 mls/hr IV DAILY [facility] Stop: 03/16/18 09:59 Last Infusion: 03/09/18 11:47 Dose: Infused Levalbuterol HCl (Xopenex Neb 1.25 Mg/3 Ml Ampul) 1.25 mg NEB RTQ6HP PRN PRN Reason: SHORTNESS OF BREATH Stop: 04/06/18 17:14 Last Admin: 03/07/18 20:06 Dose: 1.25 mg Multivitamins/Iron (Flintstones Chewable Multivit W/Fe Tab) 2 tab PO DAILY [facility] Stop: 04/08/18 09:59 Last Admin: 03/09/18 09:49 Dose: 2 tab Pantoprazole Sodium (Protonix Iv Inj 40 Mg Vial) 40 mg IV Q12A [facility] Stop: 03/11/18 17:59 Last Admin: 03/09/18 05:35 Dose: 40 mg Sacubitril/Valsartan (Entresto 24 Mg/26 Mg Tablet) 1 tab PO BID [facility]I Stop: 04/07/18 20:14 Last Admin: 03/09/18 09:49 Dose: 1 tab Spironolactone (Aldactone 25 Mg Tablet) 25 mg PO DAILY [facility] Stop: 04/08/18 13:59 Last Admin: 03/09/18 13:57 Dose: Not Given Thiamine HCl (Thiamine 100 Mg Tablet) 100 mg PO DAILY [facility] Stop: 04/08/18 09:59 Last Admin: 03/09/18 09:52 Dose: 100 mg - Allergies Allergies/Adverse Reactions: No Known Allergies Allergy (Verified 03/01/18 18:06) - Diet/Activity Discharge Diet: Cardiac Hospital Course Hospital Course: The patient is a 52-year-old female with a past medical history of bipolar disorder, tobacco dependence, COPD, hepatitis C and alcohol abuse presented with chief complaint of cough, shortness of breath and chest pain. The patient was initially placed on ceftriaxone and Zithromax and for coverage of an community-acquired pneumonia. She was then transitioned to Levaquin and vancomycin based upon previous history of sputum cultures positive for MRSA. Repeat chest x-ray showed progression of her left lower lobe consolidation, and so her Levaquin was discontinued and she was changed to Zosyn with continuation of her vancomycin. Her hemoglobin trended down to 6.8 and she received 1 unit of packed red blood cells with posttransfusion hemoglobin of 9. She continued to receive IV Ativan for agitation and management of her withdrawal symptoms. She was noted to be more lethargic than baseline and so received 1 dose of Romazicon with immediate improvement in her alertness. Her Ativan schedule was decreased slightly. While on Zosyn and vancomycin, she was noted to have an abrupt worsening of her renal function; her Zosyn dose was reduced and her vancomycin placed on hold. The patient was becoming increasingly tachypneic and tachycardiac, there was concern that she may have a PE. Unfortunately, the patient was unable to complete a VQ scan and due to her renal function CTA was not a viable option. Still, a heparin gtt was initiated for a presumed PE. BNP was elevated to 29,000, the patient has no known history of heart disease. ECHOcardiogram demonstrates LVEF 35%, severely reduced LV systolic function, Doppler measurements suggest reversible restrictive LV relaxation, grade 3 diastolic dysfunction, moderately reduced RV dysfunction. The patient was given IV lasix 40mg and placed on BID Lasix IV. The patient was started on a bicarb gtt for compensated metabolic acidosis (HCO3 15 Lactate 1.6). Today, the patient seems to be more alert but her speech is still garbled and she is still confused. She is oriented to self, time, place but not situation. She often begins rambling incoherently when asked why she is at the hospital. Her BNP increased from 29,000 to 39,000 and her troponin increased from 0.8-> 1.1 overnight. Discussed patient's case with family preservation worker, Dr. Graham, who agrees that the patient's medical needs exceed the capabilities of this hospital. It is possible that this patient will require a cardiac catheterization. [facility] was notified, Dr. Parr graciously accepted. Physical Exam Vital Signs: Temp Pulse Resp BP Pulse Ox 97.6 F 100 16 84/66 L 99 03/09/18 12:24 03/09/18 12:24 03/09/18 12:24 03/09/18 12:24 03/09/18 12:24 Pulse Oximeter Continuous Start: 03/08/18 13: 28 Freq: RTQ4 Status: Active Document 03/09/18 11:51 [facility] (Rec: 03/09/18 12:01 [facility] [id number]) Pulse Oximetry Assessment Oxygen Saturation (92-100) 95 Oxygen Flow Rate (L/min) 2 Oxygen Delivery Method Nasal Cannula Equipment Usage Equipment in Use Continuous SpO2 Machine # [id number] Intake & Output 03/08/18 03/09/18 03/10/18 06:59 06:59 06:59 Intake Total 3601.2 2775.2 670 Output Total 1675 Balance 3601.2 1100.2 670 Weight 65.6 kg 63.2 kg General appearance: PRESENT: thin Eye exam: PRESENT: conjunctiva pink, PERRLA Mouth exam: PRESENT: moist Teeth exam: PRESENT: poor dentation Neck exam: PRESENT: full ROM Respiratory exam: PRESENT: symmetrical, unlabored. ABSENT: accessory muscle use , tachypnea Cardiovascular exam: PRESENT: +S1, +S2 Pulses: PRESENT: normal radial pulses, normal dorsalis pedis pul Vascular exam: PRESENT: normal capillary refill GI/Abdominal exam: PRESENT: normal bowel sounds, soft. ABSENT: tenderness Rectal exam: PRESENT: deferred Extremities exam: PRESENT: full ROM, joint swelling, +2 edema - RUE Musculoskeletal exam: PRESENT: full ROM. ABSENT: normal inspection - RUE pitting edema Neurological exam: PRESENT: alert, awake, oriented to person, oriented to place , oriented to time. ABSENT: oriented to situation Psychiatric exam: PRESENT: unusual affect Skin exam: PRESENT: dry, intact, pallor. ABSENT: warm - EXTREMITIES ARE COOL TO TOUCH Results Laboratory Results: 03/09/18 08:00 03/09/18 08:00 03/08/18 03/08/18 03/08/18 06:33 17:30 17:30 WBC 21.0 H RBC 2.98 L Hgb 9.7 L Hct 29.4 L MCV 98 H MCH 32.5 MCHC 33.1 RDW 18.5 H Plt Count 389 Seg Neutrophils % Not Reportable Lymphocytes % Not Reportable Monocytes % Not Reportable Eosinophils % Not Reportable Basophils % Not Reportable Absolute Neutrophils Not Reportable Absolute Lymphocytes Not Reportable Absolute Monocytes Not Reportable Absolute Eosinophils Not Reportable Absolute Basophils Not Reportable Sodium 143.8 Potassium 3.4 L Chloride 111 H Carbon Dioxide 17 L Anion Gap 16 BUN 17 Creatinine 2.93 H Est GFR ( Amer) 20 L Est GFR (Non-Af Amer) 17 L Glucose 101 Calcium 8.0 L Magnesium Blood Type O POSITIVE Antibody Screen NEGATIVE 03/09/18 03/09/18 03/09/18 00:10 00:10 01:30 WBC 21.9 H RBC 2.94 L Hgb 9.5 L Hct 28.4 L MCV 97 MCH 32.3 MCHC 33.4 RDW 18.7 H Plt Count 401 Seg Neutrophils % Lymphocytes % Monocytes % Eosinophils % Basophils % Absolute Neutrophils Absolute Lymphocytes Absolute Monocytes Absolute Eosinophils Absolute Basophils Sodium 143.4 Potassium 2.7 L* Chloride 108 H Carbon Dioxide 20 L Anion Gap 15 BUN 19 Creatinine 2.91 H Est GFR ( Amer) 20 L Est GFR (Non-Af Amer) 17 L Glucose 139 H Calcium 7.3 L Magnesium 1.4 L Blood Type Antibody Screen 03/09/18 03/09/18 03/09/18 06:00 06:00 08:00 WBC Cancelled RBC Cancelled Hgb Cancelled Hct Cancelled MCV Cancelled MCH Cancelled MCHC Cancelled RDW Cancelled Plt Count Cancelled Seg Neutrophils % Cancelled Lymphocytes % Cancelled Monocytes % Cancelled Eosinophils % Cancelled Basophils % Cancelled Absolute Neutrophils Cancelled Absolute Lymphocytes Cancelled Absolute Monocytes Cancelled Absolute Eosinophils Cancelled Absolute Basophils Cancelled Sodium Cancelled 142.0 Potassium Cancelled 2.9 L* Chloride Cancelled 110 H Carbon Dioxide Cancelled 21 L Anion Gap Cancelled 11 BUN Cancelled 17 Creatinine Cancelled 2.42 H Est GFR ( Amer) Cancelled 25 L Est GFR (Non-Af Amer) Cancelled 21 L Glucose Cancelled 106 Calcium Cancelled 6.4 L* Magnesium Cancelled 1.9 Blood Type Antibody Screen 03/09/18 08:00 WBC 24.5 H RBC 3.15 L Hgb 10.2 L Hct 30.7 L MCV 98 H MCH 32.4 MCHC 33.3 RDW 18.5 H Plt Count 424 Seg Neutrophils % Lymphocytes % Monocytes % Eosinophils % Basophils % Absolute Neutrophils Absolute Lymphocytes Absolute Monocytes Absolute Eosinophils Absolute Basophils Sodium Potassium Chloride Carbon Dioxide Anion Gap BUN Creatinine Est GFR ( Amer) Est GFR (Non-Af Amer) Glucose Calcium Magnesium Blood Type Antibody Screen 03/08/18 12:19 Roberson Catheter Legionella Urinary Antigen - Final 03/08/18 03/08/18 03/09/18 12:38 18:00 00:10 CK-MB (CK-2) 4.01 Troponin I 0.880 0.868 1.140 NT-Pro-B Natriuret Pep 18902 H 03/09/18 08:00 CK-MB (CK-2) Troponin I NT-Pro-B Natriuret Pep [id number] H Impressions: Acute Abdomen Series 03/01/18 18:35 IMPRESSION: Left lower lobe pneumonia. Nonspecific abdomen. Lung Scan-VQ NM 03/07/18 00:00 IMPRESSION: Perfusion images show bilateral heterogeneous activity. Chest X-Ray 03/08/18 00:00 IMPRESSION: Right-sided central line with its tip at the approximate junction of SVC and right atrium. No pneumothorax is seen. Other findings as noted above Status: Imported from PACS Plan Discharge Plan: TRANSFER TO [facility] FOR FURTHER EVALUATION AND POSSIBLE CARDIAC CATHETERIZATION Time Spent: Less than 30 Minutes
[2018-03-09] MEDS ORDERED: ATORVASTATIN CALCIUM 10 MG TABLET PO SCH (22:00)
== END 2018-03-09 21:10 | disposition short-term general hospital (02) | DRG 871 ==
LOC: ER 18:05 → EH 21:21 → 3W 23:35 → 3N 03-02 18:32
PROVIDERS: ADMIT Internal Medicine; ATTEND Internal Medicine
PROC: 30233N1 Transfusion of Nonautologous Red Blood Cells into Peripheral Vein, Percutaneous Approach (ICD-10-PCS; 2018-03-03)
PROC: 3E0F73Z Introduction of Anti-inflammatory into Respiratory Tract, Via Natural or Artificial Opening (ICD-10-PCS; 2018-03-07)
PROC: 02HV33Z Insertion of Infusion Device into Superior Vena Cava, Percutaneous Approach (ICD-10-PCS; principal; 2018-03-08)
PROC: 30233N1 Transfusion of Nonautologous Red Blood Cells into Peripheral Vein, Percutaneous Approach (ICD-10-PCS; 2018-03-08)
DX: A41.9 Sepsis, unspecified organism (principal); J18.1 Lobar pneumonia, unspecified organism; N17.0 Acute kidney failure with tubular necrosis; J96.00 Acute respiratory failure, unspecified whether with hypoxia or hypercapnia; E46 Unspecified protein-calorie malnutrition; I42.9 Cardiomyopathy, unspecified; I50.9 Heart failure, unspecified; D50.9 Iron deficiency anemia, unspecified; Z68.20 Body mass index [BMI] 20.0-20.9, adult; E83.51 Hypocalcemia; E87.6 Hypokalemia; F31.9 Bipolar disorder, unspecified; F17.210 Nicotine dependence, cigarettes, uncomplicated; J44.9 Chronic obstructive pulmonary disease, unspecified; F10.20 Alcohol dependence, uncomplicated; Y90.2 Blood alcohol level of 40-59 mg/100 ml; F43.10 Post-traumatic stress disorder, unspecified; D64.9 Anemia, unspecified; R00.0 Tachycardia, unspecified; Z78.1 Physical restraint status; Z86.14 Personal history of Methicillin resistant Staphylococcus aureus infection; Z79.899 Other long term (current) drug therapy; Z86.19 Personal history of other infectious and parasitic diseases; Z60.2 Problems related to living alone; Z83.6 Family history of other diseases of the respiratory system
CPT/HCPCS: 36415; 36430; 36600; 71045; 74022; 78580; 80048; 80053; 80074; 80202; 80307; 81001; 82140; 82150; 82272; 82550; 82553; 82565; 82803; 83605; 83690; 83735; 83880; 84100; 84484; 85025; 85027; 85379; 85610; 85730; 86850; 86900; 86901; 86920; 87040; 87086; 93005; 93010; 93306; 94762; A9540; C1751; J0610; J0696; J1630; J1644; J1650; J1940; J1956; J2020; J2060; J2185; J2354; J2405; J2543; J2765; J2930; J3010; J3370; J3411; J3475; J3480; J3490; J7030; J7040; J7050; J7060; J7620; P9016; Q9969; S0164